=== PATIENT | male | born 1940 | race Caucasian/White ===

== ENCOUNTER 2017-10-23 04:50 | Emergency (ER) | payer MEDICARE, BC ==
--- OUTSIDE RECORDS SUMMARY | 2017-10-23 05:07 | XMS REPORT ---
:1940 External Reference #:[id number] Author Organization [facility] Address [address] [address] Phone [phone] Care Team Providers Name Role Phone Primitivo Zapien MD Primary Care Physician Unavailable Payers Type Date Identification Numbers Payment Provider Subscriber Medicare Primary Effective: Policy Number: Medicare Alexandr Cardenas 2004 [id number] PayID: [id number] [address] [place] [address] Medigap Part B Policy Number: [id number] [facility] Alexandr Cardenas PayID: [id number] [address] [place] [address] Problems Date Description Provider Status Onset: 07/04/2011 Pure hypercholesterolemia Singh Lo M.D. Active Onset: 09/25/2012 Coronary arteriosclerosis Singh Lo M.D. Active Onset: 09/25/2012 Arteriosclerosis of arterial Singh Lo M.D. Active coronary artery bypass graft Onset: 02/15/2014 Palpitations Singh Lo M.D. Active Onset: 02/15/2014 Malaise and fatigue Singh Lo M.D. Active Onset: 02/15/2014 Spinal stenosis of lumbar region Singh Lo M.D. Active Onset: 06/28/2014 Benign essential hypertension Singh Lo M.D. Active Onset: 06/28/2014 Atrial fibrillation Singh Lo M.D. Active Onset: 06/28/2014 Atherosclerosis of artery Singh Lo M.D. Active Onset: 01/25/2016 Essential hypertension Singh Lo M.D. Active Onset: 07/08/2016 Obstructive sleep apnea syndrome Taylor Monae DNP, Active RN, COPYWRITER- Onset: 07/08/2016 Insomnia Taylor Monae DNP, Active RN, COPYWRITER- Family History Date Family Member(s) Problem(s) Comments Father due to Stroke () Father due to Age 84 () Mother due to Complications Infected Gall Bladder () Age 74 Mother Diabetes, Insulin Dependent First Son Down's Syndrome Age 33 First Son Thyroid Disease First Son Obesity Second Son Gall Bladder Attack- Severe Second Son Living First Sister Rheumatic Fever First Sister Living Second Sister Hypertension Second Sister Living Third Sister Arthritis, Rheumatoid Third Sister Living Fourth Sister Hypercholesterolemia Fourth Sister Living Social History Type Date Description Comments Marital Status Lives With 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 active myalgias 04/25/2008 Niaspan active flushing 10/06/2013 Crestor fatigue on 2.5 mg daily active 08/19/2016 Chocolate Sneezing active 08/19/2016 Strawberries Urticaria active Medications Medication Date Status Form Strength Qnty SIG Indications Ordering Provider Co-Enzyme Q-10 07/29 Active Capsules 200mg 60cap 1 by mouth s every day Cem Lo M.D. Lovaza 04/10 Active Capsules 1gm take 1capsules twice a day Warfarin Sodium 06/28 Active Tablets 5mg 100ta take as bs [id number] F. 12/27 Teresita, (current Aditi regime 7.5/7.5/5mg and repeat) managed by Dr. Zapien Aspirin Ec 03/[address] 81mg 1 tab po I48.0 daily Cem Lo M.D. Dilt-XR 03/08 Active Caps ER 120mg 90cap 1 by mouth I48.0 24HR s every day Cem Lo M.D. Vitamin D 08/06 Active Capsules 2000Unit 1 po qd Cem Lo M.D. Nitrostat 04/22 Active Tablets Sub 0.4mg 25tab one sl q5min s up to 3 F. doses as Mauser, needed M.DTanesha Zolpidem Active Tablets 5mg 1 by mouth Unknown Tartrate /0000 tablet at bedtime as needed Cpap Active Device for use Unknown /0000 while sleeping Coq10 04/14 Hx Capsules 200mg 90cap 1 by mouth s every day Cem Lo, 07/25 M.D. Aspirin Ec 04/[address] 81mg 1 tablet Unknown Lo-Dose /2015 daily. - 07/20 [place] 3 Ethyl 01/24 Hx Capsules 1gm 100ca 2 po bid ps FTanesha Lo, 07/20.D. Ambien 06/28 Hx Tablets 5mg 1 po q hs prn Cem Lo, 01/23 M.D. Crestor 04/22 Hx Tablets 5mg 40tab 1/2 tab by s mouth F. - 3x/week Mauser, 11/14 (-w-) M.D. Crestor 09/25 Hx Tablets 5mg 30tab 1/2 po tid s stopped January - 2013 Mauser, 02/24 M.D. Crestor 03/15 Hx Tablets 5mg 1/2 po 2x week F. - Mausecyril, 09/25 M.D. Crestor 10/25 Hx Tablets 10mg 30tab 1/2 po biw s hs Cem Lo, 02/21 M.D. Crestor 04/21 Hx Tablets Unsure 30tab 1/2 po qd s Cem Lo, 04/21 M.D. Crestor 04/21 Hx Tablets 5mg 30tab 1/2 po MWF s F. - Leonardor, 10/25 M.D. Lipitor 12/28 Hx 5mg 1 po q week F. - Leonardor, 04/21 M.D. Lipitor 09/26 Hx F. Leonardor, 12/28 M.D. Lipitor 09/20 Hx Tablets 5mg. 90tab 1 2x/wk s F. - Leonardor, 09/26 M.D. Lipitor 06/15 Hx Tablets 5mg. 1 PO mondays and Teresita, 06/20 M.D. Lipitor 04/25 Hx Tablets 5mg. 30tab 1 po q Friday. Eliane Lo, 06/15 M.D. Zetia 12/10 Hx Tablets 10mg 90tab 1 PO qd F. Eliane Lo, 02/01 M.D. Lovaza 12/10 Hx Capsules 1gm 120ca [facility] Zocor 12/10 Hx Tablets 5mg 30tab 1 PO hs Cem Lo, 03/28 M.D. Zithromax Z-Chaz 09/02 Hx Tablets 250mg 1Pack as Per [facility] F. - Leonardor, 12/10 M.D. Lipitor 08/24 Hx Tablets 5mg. 30tab 1 po -- s F. - Mauser, 08/28 M.D. Lipitor 06/24 Hx Tablets 10mg 90tab 1Tab PO hs s F. - Gustavouser, 08/24 M.D. Omacor 03/26 Hx Capsules 1gm one bid F. Eliane Lo, 12/10 M.D. Reglan 08/11 Hx Tablets 10mg 90tab 1 PO s F. - Mabogdanr, 12/10 M.D. Protonix 08/11 Hx Tablets 40mg qd F. - Mauser, 12/10.D. Albuterol 08/11 Hx Aerosol 90mcg/Dos 2 Puffs qid Inhalation e prn F. - Gustavouser, 10/04 M.D. Cholestyramine 08/30 Hx Powder 4GM/9 GM 180un 1 po bid its F. - Mauser, 03/30 M.D. Nasonex 08/01 Hx Suspension 50mcg 2 sprays Intranasal each nostril F. [place] - prn Teresita, 11/01.D. Atenolol 07/22 Hx Tablets 25mg 30tab 1/ po qd s F. - Mausecyril, 07/26.D. Lopressor 07/15 Hx Tablets 25mg 1 po qd x 1 wk then D/c F. - bogdan, 07/22.D. Amiodarone 07/05 Hx Tablets 100mg take qd for 2wks then DC F. - on 07/19/05 Mabogdan, 07/22.D. Niaspan 07/03 Hx Tablets 1,000mg 1 po q hs F. Release - Gustavouser, 07/08.D. Lopressor 06/26 Hx Tablets 25mg 60tab 1 po bid s F. - Mabogdanr, 07/15.D. Amiodarone 06/19 Hx Tablets 200mg 1 po qd F. - Mauser, 07/05.D. Levaquin 06/08 Hx Tablets 500mg 10tab one qd x10 s days F. - Mauser, 06/26.D. Albuterol 06/08 Hx Aerosol 90mcg/Dos 2 puffs qid Inhalation e prn F. - Teresita, 11/01 M.D. Amiodarone 06/08 Hx Tablets 400mg 37tab bid times s one . - week,then qd , 06/19 times .D. month Lopressor 06/04 Hx Tablets 50mg 180ta 1 po bid bs Cem Lo, 06/26.D. Plavix 06/04 Hx Tablets 75mg 30tab 1 po qd s Cem Lo, 06/08.. Aspirin 06/04 Hx Gelcaps 325mg 1 po qd Tanesha Lo, 03/08 M.D. Ferrous 06/04 Hx Tablets 325mg 1 po bid Gluc Leonardo, 07/22. Colace 06/04 Hx Capsules 100mg 30cap 1 po bid s Tanesha Lo, 07/22. Protonix 06/04 Hx Tablets 40mg qd Tanesha Leonardo, 06/26.D. Amiodarone 06/04 Hx Tablets 200mg 30tab 400 mg bid s for 2 weeks Tanesha Teresita, 06/04 then 400 .D. mg qd Ceftin 06/04 Hx Tablets 500mg 1 po q12h x 12 days Eliane Lo, 06/08.D. Ambien 06/04 Hx Tablets 10mg 30tab one qhs prn s sleep Tanesha Lo, 11/01 M.D. Pleitez Tussin 06/04 Hx Suspension 30mg;4 prn cough With Codeine /2004 mg/5 ML Tanesha Lo, 07/22.D. Niaspan 04/26 Hx Tablets 500mg 30tab 1 po qpm s Tanesha Lo, 04/26 M.D. Toprol XL 04/26 Hx Tablets 100mg 90tab 1 po qd s Cem Lo, 06/04.D. Niaspan 04/26 Hx Capsules 250mg 90cap 1 po qd s F. - Mauser, 04/26 M.D. Niaspan 04/26 Hx Tablets 500mg 90tab 1 po qpm s F. Release - Mauser, 07/03 M.D. Toprol XL 04/22 Hx Tablets 50mg 30tab 1 po qd s F. - Mauser, 04/26 M.D. Plavix 04/22 Hx Tablets 75mg 30tab 1 po qd s F. - Mauser, 06/08 M.D. Zetia 03/23 Hx Tablets 10mg 90tab 1 po qd s F. - Gustavouser, 10/16 M.D. Aspirin Enteric 03/23 Hx Tablets 81mg qd F. - Teresita, 06/04 M.D. Vitamins 03/23 Hx Tablets 30tab 1 po qd Singh s F. - Mauser, 06/27 M.D. Vitamin E 03/23 Hx Capsules 400Units 100ca 1 po qd ps F. - Mauser, 03/24 M.D. Atenolol Hx Tablets 25mg 45tab 1/2 by mouth Singh /0000 s every other F. - day until , 03/03 6.17.14 and M.D. then discontinue Co Q 10 Hx Capsules 100mg 1 po 3x week Unknown /0000 - 02/15 Vesicare 00 Hx Tablets 5mg 90tab 1 po qd Unknown /0000 s - 03/09 Zolpidem Hx Tablets 5mg 40tab 1-2 prn Unknown Tartrate /0000 s - 04/26 Diltiazem HCL 00 Hx Tablets 120mg 30tab 1 by mouth Unknown /0000 s every day - 03/08 Xarelto Hx Tablets 20mg 90tab 1 by mouth Maddie /0000 s every day Valeria, - with evening M.D. 02/15 meal 04/22/14 hold x 2 days,04/26 cont to hold Zetia Hx Tablets 10mg 1 by mouth Unknown /0000 every day - 03/06 Co Q-10 Hx 1 po qod Unknown /0000 - 07/05 Crestor 00 Hx Tablets 5mg 40tab 1/2 tab by Singh /0000 s mouth F. - 3x/week (pt Teresita, 10/09 reports he Aditi /2017 takes every other day) hold as of 07.29.2017 Tylenol Extra Hx Tablets 500mg 1-2 po q hs Unknown Strength /0000 prn - 07/25 Medications Administered in Office Medication Date Status Form Strength Qnty SIG Indications Ordering Provider Inj, Administered Injection Octavio Wood Regadenoson, 016 Aditi Newman 0.1 MG Inj, Administered Injection Singh Priest Regadenoson, 016 Teresita, 0.1 MG M.DTanesha Technetium TC Administered Injection Octavio Wood 99M 016 Aditi Newman Tetrofosmin, Per Unit Dose Up To 40 Millicuries Technetium TC Administered Injection Singh Priest 99M 016 Socorro Lo M.D. Per Unit Dose Up To 40 Millicuries Technetium TC Administered Injection Jr Perez 99M 015 Socorro Jean M.D., FACC, Per Unit Dose FASNC Up To 40 Millicuries Immunizations CPT Code Status Date Vaccine Lot # 54726 Given 06/10/2016 Influenza Virus Vaccine, Quadrivalent, Split, Preservative Free Vital Signs Date Vital Result Comment 10/09/2017 Height 70 inches 5'10" Weight 182.00 lb with boots Heart Rate 62 /min BP Systolic Sitting 118 mmHg Lue reg cuff BP Diastolic Sitting 70 mmHg Lue reg cuff Respiratory Rate 16 /min O2 % BldC Oximetry 96 % On Ra BMI (Body Mass Index) 26.1 kg/m2 07/29/2017 Height 70 inches 5'10" Weight 178.50 lb with shoes Heart Rate 70 /min BP Systolic Sitting 120 mmHg LA reg cuff BP Diastolic Sitting 72 mmHg LA reg cuff BMI (Body Mass Index) 25.6 kg/m2 Ejection Fraction 55%-60% echo 03/08/17 07/25/2017 Height 70 inches 5'10" Weight 178.38 lb with shoes Heart Rate 62 /min BP Systolic Sitting 140 mmHg Rue reg cuff BP Diastolic Sitting 70 mmHg Rue reg cuff Respiratory Rate 16 /min O2 % BldC Oximetry 96 % On Ra BMI (Body Mass Index) 25.6 kg/m2 01/20/2017 Height 70 inches 5'10" Weight 178.00 lb Heart Rate 60 /min BP Systolic Sitting 118 mmHg BP Diastolic Sitting 70 mmHg Respiratory Rate 14 /min O2 % BldC Oximetry 95 % BMI (Body Mass Index) 25.5 kg/m2 08/27/2016 Height 70 inches 5'10" Weight 181.00 lb Heart Rate 52 /min BP Systolic 118 mmHg BP Diastolic 80 mmHg Respiratory Rate 16 /min O2 % BldC Oximetry 94 % BMI (Body Mass Index) 26.0 kg/m2 08/19/2016 Height 70 inches 5'10" Weight 182.00 lb w/ shoes Heart Rate 56 /min BP Systolic Sitting 128 mmHg Rue, reg cuff BP Diastolic Sitting 80 mmHg Rue, reg cuff BP Systolic Standing 124 mmHg Rue BP Diastolic Standing 84 mmHg Rue Respiratory Rate 16 /min BMI (Body Mass Index) 26.1 kg/m2 Ejection Fraction 55-60% as of 03/08/15 echo 07/08/2016 Height 70 inches 5'10" Weight 182.00 lb Heart Rate 67 /min BP Systolic Sitting 134 mmHg BP Diastolic Sitting 76 mmHg Respiratory Rate 16 /min O2 % BldC Oximetry 97 % BMI (Body Mass Index) 26.1 kg/m2 04/08/2016 Height 70 inches 5'10" Weight 172.00 lb Heart Rate 62 /min BP Systolic 128 mmHg BP Diastolic 64 mmHg Respiratory Rate 14 /min O2 % BldC Oximetry 94 % BMI (Body Mass Index) 24.7 kg/m2 03/07/2016 Height 70 inches 5'10" Weight 172.00 lb with shoes Heart Rate 62 /min BP Systolic 116 mmHg LA reg cuff BP Diastolic 72 mmHg LA reg cuff BMI (Body Mass Index) 24.7 kg/m2 Ejection Fraction 56% Nem 03/23/15 01/25/2016 Height 70 inches 5'10" Weight 176.00 lb w/shoes Heart Rate 78 /min BP Systolic 120 mmHg LA lrg cuff BP Diastolic 72 mmHg LA lrg cuff BP Systolic Sitting 118 mmHg LA lg cuff BP Diastolic Sitting 78 mmHg LA lg cuff BMI (Body Mass Index) 25.3 kg/m2 Ejection Fraction 56% NLM 03/23/15 04/18/2015 Height 70 inches 5'10" Weight 175.00 lb w/ shoes Heart Rate 60 /min BP Systolic Sitting 114 mmHg LA, reg BP Diastolic Sitting 82 mmHg LA, reg BMI (Body Mass Index) 25.1 kg/m2 Ejection Fraction 56% 03/23/15 Nem-rest 02/16/2015 Height 70 inches 5'10" Weight 172.50 lb Heart Rate 66 /min BP Systolic 118 mmHg LA reg BP Diastolic 74 mmHg LA reg BMI (Body Mass Index) 24.7 kg/m2 Ejection Fraction 50-55% 03/16/14 ECHO 11/14/2014 Height 70 inches 5'10" Weight 180.00 lb Heart Rate 62 /min BP Systolic Sitting 120 mmHg BP Diastolic Sitting 70 mmHg Respiratory Rate 16 /min BMI (Body Mass Index) 25.8 kg/m2 06/28/2014 Height 70 inches 5'10" Weight 177.75 lb Heart Rate 72 /min BP Systolic Sitting 118 mmHg left, reg BP Diastolic Sitting 84 mmHg left, reg BMI (Body Mass Index) 25.5 kg/m2 04/27/2014 Height 70 inches 5'10" Weight 177.00 lb Heart Rate 80 /min BP Systolic Sitting 134 mmHg BP Diastolic Sitting 84 mmHg BMI (Body Mass Index) 25.4 kg/m2 04/12/2014 Height 70 inches 5'10" Weight 179.00 lb w/shoes Heart Rate 60 /min BP Systolic Sitting 138 mmHg BP Diastolic Sitting 78 mmHg Respiratory Rate 15 /min BMI (Body Mass Index) 25.7 kg/m2 03/08/2014 Height 70 inches 5'10" Weight 177.25 lb Heart Rate 64 /min BP Systolic Sitting 128 mmHg reg, left BP Diastolic Sitting 74 mmHg reg, left BMI (Body Mass Index) 25.4 kg/m2 02/15/2014 Height 70 inches 5'10" Weight 178.00 lb Heart Rate 60 /min BP Systolic Sitting 116 mmHg BP Diastolic Sitting 64 mmHg Respiratory Rate 14 /min BMI (Body Mass Index) 25.5 kg/m2 08/06/2013 Height 70 inches 5'10" Weight 180.00 lb Heart Rate 59 /min BP Systolic Sitting 124 mmHg BP Diastolic Sitting 80 mmHg BMI (Body Mass Index) 25.8 kg/m2 09/25/2012 Height 70 inches 5'10" Weight 186.00 lb Heart Rate 66 /min BP Systolic 136 mmHg BP Diastolic 78 mmHg BMI (Body Mass Index) 26.7 kg/m2 03/25/2012 Height 70 inches 5'10" Weight 178.00 lb Heart Rate 60 /min BP Systolic Sitting 128 mmHg BP Diastolic Sitting 78 mmHg Respiratory Rate 16 /min BMI (Body Mass Index) 25.5 kg/m2 07/04/2011 Height 70 inches 5'10" Weight 175.00 lb Heart Rate 56 /min BP Systolic 110 mmHg BP Diastolic 80 mmHg Respiratory Rate 16 /min BMI (Body Mass Index) 25.1 kg/m2 10/04/2010 Height 70 inches 5'10" Weight 181.00 lb Heart Rate 67 /min BP Systolic Sitting 126 mmHg BP Diastolic Sitting 80 mmHg BMI (Body Mass Index) 26.0 kg/m2 03/27/2010 Height 70 inches 5'10" Heart Rate 60 /min reg BP Systolic 110 mmHg BP Diastolic 70 mmHg 03/16/2010 Height 70 inches 5'10" Weight 181.00 lb Heart Rate 74 /min BP Systolic Sitting 130 mmHg BP Diastolic Sitting 72 mmHg BMI (Body Mass Index) 26.0 kg/m2 02/01/2010 Height 70 inches 5'10" Weight 182.00 lb Heart Rate 75 /min BP Systolic Sitting 140 mmHg L BP Diastolic Sitting 84 mmHg L BMI (Body Mass Index) 26.1 kg/m2 10/25/2009 Weight 181.00 lb Heart Rate 60 /min BP Systolic Sitting 110 mmHg BP Diastolic Sitting 70 mmHg Respiratory Rate 16 /min 04/21/2009 Height 69 inches 5'9" Weight 180.00 lb BP Systolic Sitting 120 mmHg BP Diastolic Sitting 70 mmHg BMI (Body Mass Index) 26.6 kg/m2 12/08/2008 Height 69 inches 5'9" Weight 183.00 lb Heart Rate 66 /min BP Systolic Sitting 130 mmHg L BP Diastolic Sitting 80 mmHg L BMI (Body Mass Index) 27.0 kg/m2 04/25/2008 Height 69 inches 5'9" Weight 181.00 lb Heart Rate 68 /min BP Systolic Sitting 120 mmHg BP Diastolic Sitting 70 mmHg Respiratory Rate 16 /min BMI (Body Mass Index) 26.7 kg/m2 12/11/2007 Height 69 inches 5'9" Weight 183.00 lb Heart Rate 68 /min BP Systolic Sitting 122 mmHg BP Diastolic Sitting 70 mmHg Respiratory Rate 16 /min BMI (Body Mass Index) 27.0 kg/m2 08/28/2007 Height 69 inches 5'9" Weight 182.00 lb Heart Rate 53 /min BP Systolic Sitting 140 mmHg R BP Diastolic Sitting 74 mmHg R BP Systolic Standing 140 mmHg R BP Diastolic Standing 74 mmHg R BMI (Body Mass Index) 26.9 kg/m2 03/26/2007 Height 69 inches 5'9" Weight 178.00 lb Heart Rate 58 /min BP Systolic Sitting 120 mmHg R BP Diastolic Sitting 60 mmHg R BP Systolic Standing 120 mmHg R BP Diastolic Standing 70 mmHg R BMI (Body Mass Index) 26.3 kg/m2 08/11/2006 Height 69 inches 5'9" Weight 171.00 lb Heart Rate 58 /min BP Systolic Sitting 102 mmHg BP Diastolic Sitting 66 mmHg BP Systolic Standing 102 mmHg BP Diastolic Standing 70 mmHg Respiratory Rate 16 /min BMI (Body Mass Index) 25.2 kg/m2 11/01/2005 Height 69 inches 5'9" Weight 179.00 lb Heart Rate 60 /min BP Systolic Sitting 118 mmHg BP Diastolic Sitting 74 mmHg BP Systolic Standing 104 mmHg BP Diastolic Standing 70 mmHg BMI (Body Mass Index) 26.4 kg/m2 08/01/2005 Height 69 inches 5'9" Weight 170.00 lb Heart Rate 68 /min BP Systolic Sitting 120 mmHg BP Diastolic Sitting 80 mmHg BP Systolic Standing 110 mmHg BP Diastolic Standing 84 mmHg BMI (Body Mass Index) 25.1 kg/m2 07/22/2005 Height 69 inches 5'9" Weight 170.00 lb Heart Rate 53 /min BP Systolic Sitting 146 mmHg BP Diastolic Sitting 80 mmHg BP Systolic Standing 140 mmHg BP Diastolic Standing 80 mmHg BMI (Body Mass Index) 25.1 kg/m2 06/26/2005 Height 69 inches 5'9" Weight 171.00 lb Heart Rate 59 /min BP Systolic Sitting 130 mmHg L BP Diastolic Sitting 80 mmHg L BP Systolic Standing 120 mmHg L BP Diastolic Standing 80 mmHg L O2 % BldC Oximetry 99 % BMI (Body Mass Index) 25.2 kg/m2 06/04/2005 Height 69 inches 5'9" Weight 174.00 lb Heart Rate 69 /min BP Systolic Sitting 110 mmHg BP Diastolic Sitting 60 mmHg Body Temperature 98.4 F O2 % BldC Oximetry 98 % BMI (Body Mass Index) 25.7 kg/m2 04/26/2005 Height 69 inches 5'9" Weight 184.00 lb Heart Rate 74 /min BP Systolic Sitting 124 mmHg BP Diastolic Sitting 70 mmHg BP Systolic Standing 130 mmHg BP Diastolic Standing 74 mmHg BMI (Body Mass Index) 27.2 kg/m2 03/24/2003 Height 69 inches Weight 178.00 lb BP Systolic Sitting 110 mmHg BP Diastolic Sitting 70 mmHg BP Systolic Standing 92 mmHg BP Diastolic Standing 70 mmHg BMI (Body Mass Index) 26.3 kg/m2 Results Test Date Test Result H/L Range Note Laboratory test finding 04/14/2017 C Reactive Protein 2.34 mg/L < 5.00 1 Erythrocyte Sed Rate 13 mm/Hr 0-40 Hemoglobin A1c (Glyco HGB) 6.3 % High Less than 6.0 2 TSH (Thyroid Stim Horm) 1.53 mcIU/mL 0.34-5.60 Folic Acid (Folate) > 20.00 ng/mL >3.99 Vitamin B12 311 pg/mL 180-914 3 Vitamin D Total 25(Oh) 36.2 ng/mL 30-50 Vitamin D, 1,25 Dihydroxy 42 pg/mL 18-64 4 Creatinine Clearance 05/07/2014 Urine Random Creatinine 123.88 mg/dL 5 Creatinine 0.95 mg/dL 0.51-0.95 5 Creatinine Clearance 122 mL/min 97-137 5 Urine Collection Time 24 5 Urine Total Volume 1350 mL 5 Laboratory test finding 05/06/2014 Thrombin Time 18 sec 15 - 23 6 Lupus Anticoagulant AB 05/06/2014 Prothrombin Time(Lac) 10.8 sec 7 Lac Inr 1.0 Lac Aptt 33 sec 26 - 36 Lac DRVVT Screen Ratio 1.0 ratio 0.0 - 1.1 Lupus Anticoagulant Interpreta See Comment 8 Laboratory test finding 05/06/2014 Inr 0.96 0.85-1.06 Activated Partial Thrombo Time 34.3 seconds 24.0-36.1 Order 03/08/2014 EKG <pending> Event Monitor <pending> Order 02/24/2014 Stress Test, Exercise <pending> Echocardiogram CBC With Electronic 04/08/2008 White Blood Count 7.1 CUMM 4.8-10.8 Diff Stat Red Cell Count 4.16 CUMM Low 4.6-6.2 Hemoglobin 13.6 g/dL Low 14.0-18.0 Hematocrit 38 % Low 42-52 Mean Corpuscular Volume 92 um3 80-94 Mean Corpuscular Hemoglob 33 pg High 27-31 Mean Corpuscular HGB Cone 36 g/dL 32-36 Redcell Distribution WDTH 13 % 10.5-15 Platelet Count 197 CUMM 150-450 Mean Platelet Volume 7.5 um3 7.4-10.4 Gran % 66.1 % 38-83 Lymph % 26.1 % 20-45 Mononuclear % 6.1 % 1-9 Eosinophil % 1.3 % 0-6 Basophil % 0.4 % 0-2 Abs Lymphs 1.9 1.0-4.8 Abs Mononuclear 0.4 0-0.8 Absolute Neutrophil Count 4.7 1.5-7.7 Abs Eosinophils 0.1 0-0.6 Abs Basophils 0 0-0.2 Basic Metabolic Panel Stat 04/08/2008 Sodium 141 mmol/L 135-145 Potassium 3.9 mmol/L 3.5-5.0 Chloride 108 mmol/L 101-111 Co2 (Carbon Dioxide) 30.0 mmol/L 22-32 Anion Gap 3.0 mmol/L 2-11 9 Glucose 131 mg/dL High 70-105 BUN 11 mg/dL 6-24 Creatinine 1.1 mg/dL 0.5-1.4 One Over Creatinine 0.90 BUN/Creatinine Ratio 10.0 8-20 Calcium 8.6 mg/dL 8.1-9.9 10 Laboratory test finding 04/08/2008 Troponin-I (TnI) 0.01 NG/ML 0-0.06 11 Basic Metabolic Panel 11/04/2007 One Over Creatinine 1.00 Anion Gap 5.0 mmol/L 2-11 12 BUN 11 mg/dL 6-24 Calcium 9.5 mg/dL 8.7-10.2 Chloride 104 mmol/L 101-111 Co2 (Carbon Dioxide) 31.0 mmol/L 22-32 Glucose 112 mg/dL High 70-105 Potassium 4.7 mmol/L 3.5-5.0 Sodium 140 mmol/L 135-145 BUN/Creatinine Ratio 11.0 8-20 Creatinine 1.0 mg/dL 0.5-1.4 1 Acute inflammation: >10.00 2 Therapeutic target for the treatment of diabetes Mellitus patients is <7% HBA1C, and in selective patients <6.0%.Please refer to [place] [employer] Diabetic care guidelines for further information. 3 Normal Range 180 to 914 Indeterminate Range 145 to 180 Deficient Range <145 4 ADDITIONAL INFORMATION This test was developed and its performance characteristics determined by [facility] in a manner consistent with CLIA requirements. This test has not been cleared or approved by the U.S. Food and Drug Administration. Test Performed by: [place] [address] 5 Collected from 05/06/14 AT 0630~05/07/14 AT 0630 6 Test Performed by: [address] [address] Medical Physiologist: Norm Contreras III, M.D. 7 -- REFERENCE VALUE -- 10.3 - 12.8 8 No evidence of a lupus-like anticoagulant based on results of Prothrombin Time (PT), Activated Partial Thromboplastin Time (APTT), and Dilute [place] Viper Venom Time (DRVVT). Interpretation not reviewed by physician. Test Performed by: [place] [address] Medical Physiologist: Norm Contreras III, M.D. 9 Anion gap measurement may be of limited value in the presence of any alkalosis, especially in a combined acid base disorder. . 10 Please note change in reference range effective 08 . 11 New Reference Range and Interpretation effective 06/18/02 TnI (ng/ml) INTERPRETATION <0.06 ng/ml NOT SUPPORTIVE OF DIAGNOSIS OF HI 0.06 - 0.50 ng/ml INDETERMINATE: SUGGEST SERIAL STUDIES IF CLINICALLY INDICATED. > 0.5 ng/ml CONSISTENT WITH DIAGNOSIS OF HI . 12 Anion gap measurement may be of limited value in the presence of any alkalosis, especially in a combined acid base disorder. . Procedures Date CPT Code Description Status 08/14/2017 03607 Polysomnography Sleep Staging 4+ Parameters W/Cpap Completed 07/29/2017 58863 EKG Tracing & Interpretation Completed 04/17/2017 63191 Holter Monitor Review (24 hr)dr mark jackson; maru Completed only 04/16/2017 18960 ECG Monitor/Recording W/Visual Superimposition Scanning Completed 04/14/2017 01505 Stress ECHO Interpretation/Report Hospital Completed 04/14/2017 75434 Treadmill Interp/Report Only Completed 04/14/2017 97576 Stress Test Supervsn W/Out I/R Completed 08/19/2016 31138 EKG Tracing & Interpretation Completed 03/25/2016 80926 Myocardial Perfusion Imaging Tomographic (Spect) Completed Multiple Studies 03/25/2016 92210 Myocardial Perfusion Imaging Tomographic (Spect) Completed Multiple Studies 03/25/2016 44209 Stress Test Completed 03/04/2016 62780 Holter Monitor Review (24 hr)dr christensenamp; maru Completed only 02/28/2016 35902 ECG Monitor/Recording W/Visual Superimposition Scanning Completed 01/25/2016 67761 EKG Tracing & Interpretation Completed 03/23/2015 34809 Treadmill Interp/Report Only Completed 03/23/2015 16192 Stress Test Supervsn W/Out I/R Completed 03/23/2015 29184 Stress Test Completed 03/23/2015 27483 Myocardial Perfusion Imaging Tomographic (Spect) Completed Multiple Studies 03/23/2015 35348 Myocardial Perfusion Imaging Tomographic (Spect) Completed Multiple Studies 03/08/2015 52347 ECHO Transthoracic, Real-Time 2D With Doppler And Color Completed Flow 02/16/2015 55511 EKG Tracing & Interpretation Completed 06/28/2014 16654 EKG Tracing & Interpretation Completed 03/16/2014 37274 ECHO Transthoracic, Real-Time 2D With Doppler And Color Completed Flow 03/11/2014 40901 Event Monitor/Phys Review/Interp. Completed 03/08/2014 88648 Cardiac Event Monitor Completed 03/08/2014 65157 EKG Tracing & Interpretation Completed 02/24/2014 75609 ECHO Stress Test Incl Perf Contiuous ekg Monitoring Completed W/Phys Superv 02/24/2014 06824 ECHO Stress Test Incl Perf Contiuous ekg Monitoring Completed W/Phys Superv 02/15/2014 28901 EKG Tracing & Interpretation Completed 08/06/2013 23475 EKG Tracing & Interpretation Completed 09/25/2012 96735 EKG Tracing & Interpretation Completed 03/25/2012 71027 EKG Tracing & Interpretation Completed 07/04/2011 06771 EKG Tracing & Interpretation Completed 10/04/2010 87301 EKG Tracing & Interpretation Completed 07/03/2010 61266 Treadmill Interp/Report Only Completed 07/03/2010 91768 Stress Test Supervsn W/Out I/R Completed 03/16/2010 68639 EKG Tracing & Interpretation Completed 02/28/2010 37439 ECHO Stress Test Incl Perf Contiuous ekg Monitoring Completed W/Phys Superv 02/01/2010 16957 EKG Tracing & Interpretation Completed 10/25/2009 67426 EKG Tracing & Interpretation Completed 04/21/2009 02645 EKG Tracing & Interpretation Completed 03/23/2009 89841 ECHO Transthoracic, Real-Time 2D With Doppler And Color Completed Flow 12/08/2008 56092 EKG Tracing & Interpretation Completed 06/20/2008 41217 ECHO/Stress Completed 06/20/2008 11528 ECHO/Stress Completed 06/20/2008 51605 ECHO/Stress Completed 06/20/2008 10610 Stress Test Completed 06/20/2008 23644 Stress Test Completed 04/25/2008 59498 EKG Tracing & Interpretation Completed 08/28/2007 39812 EKG Tracing & Interpretation Completed 08/28/2007 59419 EKG Tracing & Interpretation Completed 03/26/2007 33785 EKG Tracing & Interpretation Completed 09/22/2006 30571 ECHO/Stress Completed 09/22/2006 17851 Stress Test Completed 09/22/2006 67372 Stress Test Completed 08/11/2006 46119 EKG Tracing & Interpretation Completed 07/12/2006 91594 Heart Card -Tech. Completed 07/12/2006 19268 Heart Card -Tech. Completed 07/12/2006 20624 Heart Card- Prof. Completed 07/12/2006 70906 Heart Card- Prof. Completed 07/11/2006 14368 EKG, Interpretation Only Completed 07/11/2006 80646 EKG, Interpretation Only Completed 07/08/2006 54840 EKG, Interpretation Only Completed 11/01/2005 33630 EKG Tracing & Interpretation Completed 07/22/2005 42322 EKG Tracing & Interpretation Completed 06/26/2005 91425 EKG Tracing & Interpretation Completed 06/11/2005 36392 Echocardiogram Completed 06/11/2005 40374 Pulse Doppler & Continuous Wave Completed 06/11/2005 58296 Color Doppler Completed 06/08/2005 07374 EKG, Interpretation Only Completed 06/04/2005 95916 EKG Tracing & Interpretation Completed 04/26/2005 57150 EKG Tracing & Interpretation Completed 04/22/2005 73691 ECHO/Stress Completed 04/22/2005 21270 Stress Test Completed 06/16/2003 48504 EKG, Interpretation Only Completed 05/11/2003 34609 ECHO/Stress Completed 05/11/2003 35668 Stress Test Completed 03/24/2003 42052 EKG Tracing & Interpretation Completed Encounters Type Date Location Provider CPT E/M Dx Office Visit 07/29/2017 9:20[place] [facility] [place] [address] G47.33 Aditi R53.83 I48.0 E78.00 I25.10 Office Visit 07/25/2017 9:45a [facility] Taylor Monae 18912 G47.33 Services Of Morenita JONES RN, FNP-BC R35.1 Office Visit 04/14/2017 8:50a [facility] [place] [address] R53.83 MDonnell Office Visit 01/20/2017 10:15a [facility] Taylor Monae 55785 G47.33 Services Of Morenita JONES RN, FNP-BC G47.00 Office Visit 08/27/2016 10:00a [facility] Taylor Monae 97789 G47.33 Services Of Morenita JONES RN, FNP-BC G47.00 R35.1 Office Visit 08/19/2016 2:20p [facility] [place] [address] G47.33 Morenita Pennington R53.83 E78.00 I48.0 I25.10 Office Visit 07/08/2016 9:00a [facility] Taylor Monae 93714 G47.33 Services Of Morenita JONES RN, FNP-BC R53.83 G47.00 Office Visit 04/08/2016 11:00a [facility] Taylor Monae, 17731 G47.33 Services Of Morenita JONES RN, [facility]- R53.83 Office Visit 03/07/2016 11:00a [facility] [place] [address] I48.0 E78.0 G47.33 R53.83 Office Visit 01/25/2016 3:00p [facility] Singh Lo M.D. 86940 I48.0 I10 E78.0 I25.10 R53.83 Office Visit 04/18/2015 10:30a [facility] WALTER Go 20432ARD 427.31 414.01 401.1 272.0 414.02 444.9 780.79 Office Visit 02/16/2015 11:00a [facility] [place] [address] 414.01 M.D. 401.1 427.31 786.50 Office Visit 11/14/2014 11:00a [facility] Ev[facility] Cross M.D. 23579 724.02 Services Of Morenita 796.1 Office Visit 06/28/2014 11:40a [facility] [place] [address] 414.01 M.D. 401.1 427.31 440.8 Office Visit 04/27/2014 2:30p [facility] [place] Go 79706 427.31 401.1 272.4 782.7 Office Visit 04/12/2014 2:30p [facility] [place] Go 27089 427.31 401.1 272.4 250.00 Office Visit 03/08/2014 2:30p [facility] [place] 27350 414.01 427.31 401.1 794.31 272.4 Office Visit 02/15/2014 1:20p [facility] [place] [address] 414.01 M.D. 272.0 785.1 414.04 780.79 724.03 443.9 Office Visit 08/06/2013 3:00p [facility] Singh Lo M.D. 25895 272.0 414.01 785.1 Office Visit 09/25/2012 2:20p [facility] [place], 71756 414.01 M.DTanesha 272.0 414.04 Office Visit 03/25/2012 10:15a [facility] Singh Lo M.D. 81019 272.0 414.01 414.04 Office Visit 07/04/2011 9:00a [facility] [place], 89303 414.01 M.DTanesha 272.0 786.50 Office Visit 10/04/2010 8:40a [facility] [place], [address] 414.01 M.DTanesha 272.0 414.04 Office Visit 07/03/2010 10:00a [facility] [place] [address] 414.04 M.DTanesha Office Visit 03/27/2010 2:20p [facility] [place], 10389 414.01 M.DTanesha 272.0 786.50 414.04 V45.81 Office Visit 03/16/2010 4:00p [facility] Farideh vEansisaías, 50190 414.01 M.DTanesha 272.0 786.50 401.1 414.04 V45.81 Office Visit 02/01/2010 11:20a [facility] Singh Lo M.D. 05365 272.0 414.01 401.1 414.04 Office Visit 10/25/2009 3:00p [facility] Singh Lo M.D. 41440 272.0 414.01 Office Visit 04/21/2009 1:40p [facility] Singh Lo M.D. 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 401.1 272.0 414.04 Office Visit 12/11/2007 1:40p [facility] Singh Priest Mabogdanr, 41925 414.01 M.D. 401.1 272.0 Office Visit 08/28/2007 11:20a [facility] Singh Priest Mabogdanr, 12088 414.01 M.D. 401.1 272.0 Office Visit 03/26/2007 11:20a [facility] Singh Priest Mabogdanr, 72937 414.01 M.D. 401.1 272.0 Office Visit 08/11/2006 3:00p [facility] Singh JudgeTanesha Gustavobogdanr, 68704 786.50 M.D. 414.01 Office Visit 11/01/2005 2:20p [facility] Singh Priest Mabogdanr, 14593 414.01 M.D. 427.31 Office Visit 08/01/2005 3:00p [facility] Singh JudgeTanesha Gustavobogdanr, 06746 427.31 M.D. 414.01 Office Visit 07/22/2005 1:20p [facility] Singh JudgeTanesha Gustavobogdanr, 72691 414.01 M.D. 427.31 785.1 Office Visit 06/26/2005 2:20p [facility] Singh JudgeTanesha Gustavobogdanr, 73988 414.01 M.D. 427.31 272.0 Office Visit 06/04/2005 3:20p [facility] Singh JudgeTanesha Gustavobogdanr, 76436 414.01 M.D. 427.31 786.2 Office Visit 04/26/2005 1:20p [facility] Singh JudgeTanesha Gustavobogdanr, 38986 414.01 M.D. 413.9 780.57 Office Visit 04/22/2005 11:45a [facility] Singh Judge. Gustavobogdanr, 37663 786.50 M.D. 401.0 786.09 Office Visit 03/24/2003 9:20a [facility] Singh FTanesha Gustavobogdanr, 19871 786.50 M.D. 414.01 786.05 785.1 780.57 272.4 Plan of Care 10/09/2017 - Taylor Monae DNP, RN, COPYWRITER-BCG47.33 Obstructive sleep apnea ( adult) (pediatric)Follow up:1 yearRecommendations:Continue PAP device, Benefitting and compliant with treatment. Continue CPAP at 6 cm setting. Trial the Mirage FX nasal interface. If you have any sleepiness while driving you MUST avoid operating a vehicle or machinery. If you have difficulty with your equipment, or need to replace your mask or hoses, please contact your homecare agency. A weight change of 20 pounds or more may have an effect on your equipment; if you are experiencing problems please call for an appointment. If you have any further questions, please call the [facility] at .
--- OUTSIDE RECORDS SUMMARY | 2017-10-23 05:08 | XMS REPORT ---
:1940 External Reference #:[id number] Author Organization [facility] Address [address] [place] [address] Phone [phone] Care Team Providers Name Role Phone Primitivo Zapien M.D. Primary Care Physician Unavailable Payers Type Date Identification Numbers Payment Provider Subscriber Medicare Primary Effective: Policy Number: Medicare - NGS Alexandr Cardenas 2004 [id number] PayID: [id number] [address] [place] [address] Commercial Policy Number: [id number] [place] Plan Alexandr Cardenas PayID: [id number] [address] [place] [address] Problems Date Description Provider Status Onset: Allergy Active Onset: Carcinoma of prostate Active Onset: Removal of gallbladder Active Onset: Essential hypertension Active Onset: Atrial fibrillation Active Onset: Cervical nerve root compression Active Onset: Pure hypercholesterolemia Active Onset: 03/30/2015 Ocular hypertension Austen Dawn M.D. Active Onset: 03/30/2015 Nuclear senile cataract Austen Dawn M.D. Active Onset: 09/29/2015 Combined form of senile cataract Austen Dawn M.D. Active Onset: 04/01/2016 Type 2 diabetes mellitus Austen Dawn M.D. 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 Arleo, M.D. 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 Warfarin Sodium Active Tablets 5mg Unknown 000 Zolpidem Active Tablets 5mg Shallish, Tartrate 000 Primitivo M.D. Vitamin D Active Tablets 1000Unit 1 by Unknown (Cholecalciferol 000 mouth ) twice a day Lovaza Active Capsules 1gm 1 tab Unknown 000 by mouth twice a day Nitrostat Active Tablets Sub 0.4mg Unknown [address] Active Tablets [address] 81mg twice a Unknown 000 day by mouth Crestor Active Tablets 5mg 1/5 tab Unknown 000 qod Diltiazem HCL ER Active Caps ER 120mg Unknown Coated Beads 000 24HR Flovent HFA Active Aerosol 44mcg/Act Shallish, 000 Primitivo M.D. [id number] Hx Capsules 1gm Austen Wen Ethyl Esters 015 - Arleo, M.D. 015 Aspirin 0 Hx Tablets 325mg Unknown 000 - 015 Multivitamins Hx Capsules Unknown 000 - 015 Vital Signs Date Vital Result Comment 11/12/2016 BP Systolic 152 mmHg BP Diastolic 78 mmHg Heart Rate 66 /min Respiratory Rate 12 /min 10/22/2016 BP Systolic 145 mmHg BP Diastolic 77 mmHg Heart Rate 66 /min Respiratory Rate 12 /min 10/15/2016 BP Systolic 130 mmHg BP Diastolic 82 mmHg Heart Rate 60 /min Respiratory Rate 14 /min Results Description No Information Procedures Date CPT Code Description Status 04/03/2017 45332 Est Patient Comprehensive Exam Completed 11/12/2016 53347 Iridotomy/Iredectomy By Laser Surgery Completed 10/15/2016 05005 Iridotomy/Iredectomy By Laser Surgery Completed 10/03/2016 45808 Est Patient Intermediate Exam Completed 04/01/2016 42785 Scanning Computerized Ophthalmic Diagnostic Imag Completed Posterior Seg On 04/01/2016 16739 Visual Field Exam Extended Completed 04/01/2016 15000 Est Patient Comprehensive Exam Completed 09/29/2015 97192 Est Patient Intermediate Exam Completed 03/30/2015 37790 Fundus Photography With Interpretation And Report Completed 03/30/2015 38205 Visual Field Exam Extended Completed 03/30/2015 18016 Est Patient Comprehensive Exam Completed 09/30/2014 82547 Gonioscopy Completed 09/30/2014 89644 Est Patient Intermediate Exam Completed 04/28/2014 98720 Visual Field Exam Extended Completed 04/28/2014 90823 Est Patient Intermediate Exam Completed 03/28/2014 00506 Pachymetry Completed 03/28/2014 76804 Est Patient Comprehensive Exam Completed 03/28/2014 77771 Scanning Computerized Ophthalmic Diagnostic Imag Completed Posterior Seg On 03/26/2013 15442 Determination Of Refractive State Completed 03/26/2013 17543 Est Patient Comprehensive Exam Completed 03/27/2012 72921 Est Patient Comprehensive Exam Completed 03/26/2011 07210 Fundus Photography With Interpretation And Report Completed 03/26/2011 49338 Est Patient Comprehensive Exam Completed 12/29/2009 22328 Est Patient Comprehensive Exam Completed 12/29/2009 64334 Scanning Laser W/Interp And Report Completed 12/21/2008 57734 Est Patient Comprehensive Exam Completed 12/18/2007 55705 Determination Of Refractive State Completed 12/18/2007 40019 Est Patient Comprehensive Exam Completed 12/18/2006 24246 Determination Of Refractive State Completed 12/18/2006 83111 Est Patient Comprehensive Exam Completed 12/12/2005 29632 Est Patient Comprehensive Exam Completed 12/06/2004 68754 Determination Of Refractive State Completed 12/06/2004 53432 Est Patient Comprehensive Exam Completed Encounters Type Date Location Provider CPT E/M Dx Office Visit 12/30/2016 Autsen Dawn MD, Austen Dawn, 28731 H40.033 10:15a Aditi H40.052 H25.813 Office Visit 05/25/2008 2:15p Austen Dawn MD, Leonard Salazar M.D. 97062 373.00 Plan of Care 10/06/2017 - Austen Dawn M.D.H25.813 Combined forms of age-related cataract , bilateralComments:Smoking can increase the risk of developing or worsening any eye related disease, as well as affect your overall health. If you are a smoker, we strongly recommend that you quit.If you are not a smoker, we strongly recommend that you do not start. You have been diagnosed with cataracts. If you are happy with your vision as it is now, then we will see you at your next scheduled appointment. If you feel like your vision is getting worse before your scheduled appointment, please call Sia Mccollmu [phone].Follow up:6 Month Follow Up You can expect to have your eyes dilated at your next visit. If Dr. Dawn orders any additional testing, it may require extra time. We recommend that you bring sunglasses, as dilation drops often make you light sensitive until they wear off. We always recommend you bring someone to drive you home if you are uncomfortable driving with your eyes dilated. If you have any questions before your next visit, feel free to call our office at .H40.033 Anatomical narrow angle, bilateral
[2017-10-23] MEDS ORDERED: NS 0.9% 1000 ML* 1,000 ML IV ONE (05:11)
[2017-10-23] MEDS ORDERED: Diltiazem DRIP* 100 MG/100 ML ADDV.BAG IVPB ONE (05:12)
[2017-10-23] MEDS ORDERED: Diltiazem IV* 5 MG/ML 5 ML VIAL (for loading dose/IV Push) (25 MG) IV SLOW PU ONE (05:13)
[2017-10-23] MEDS ORDERED: Digoxin IV* 0.5 MG/2 ML AMP (0.25 MG/ML) IV SLOW PU ONE (05:13)
[2017-10-23 05:25] LABS: ABS Basophils 0.1 10^3/ul (0-0.2); ABS Eosinophils 0.2 10^3/ul (0-0.6); ABS Lymphocytes 2.6 10^3/ul (1.0-4.8); ABS Monocytes 0.6 10^3/ul (0-0.8); ABS Nucleated RBC 0 10^3/ul; Eosinophil % 2.1 % (0-6); Hematocrit 44 % (42-52); Hemoglobin 15.1 g/dl (14.0-18.0); Lymphocyte % 35.2 % (25-47); Mean Corpuscular HGB Conc 34 g/dl (31-36); Mean Corpuscular Hemoglobin 33 pg (27-31); Mean Corpuscular Volume 94 fL (80-94); Mean Platelet Volume 8 um3 (7.4-10.4); Nucleated Red Blood Cells % 0.1; Platelet Count 234 10^3/ul (150-450); Red Blood Count 4.66 10^6/ul (4.0-5.4); Red Cell Distribution Width 14 % (10.5-15); White Blood Count 7.4 10^3/ul (3.5-10.8)
[2017-10-23 05:38] LABS: INR 1.92 (0.77-1.02)
[2017-10-23 05:45] LABS: EGFR Non-African American 73.3 (>60)
[2017-10-23] MEDS ORDERED: Diltiazem IV VIAL* 125 MG in NS 0.9% 100 ML* 100 ML IV ONE (06:00)
[2017-10-23] MEDS ORDERED: Enoxaparin(*) 80 MG/0.8 ML SYR SUBCUT SCH (07:00)
--- NOTE | 2017-10-23 07:09 | ED ---
Carrol Esteban Gabriel, scribed for Susie Tolentino MD on 10/23/17 at 0546 . Palpitations / Dysrhythmia - HPI Summary HPI Summary: This patient is a 77 year old M presenting to [facility] accompanied by his with with a chief complaint of chest palpitation since earlier this morning. The patient rates the pain 7/10 in severity. Patient reports increased urination. Patient denies CP pain. Pt had cardiac bypass and has had 2 episodes similar to this one. The last one was 20 years ago. Last two episodes he was shocked to fix it. Pt is on warfarin for Afib. - History of Current Complaint Chief Complaint: EDDysrhythmPalp Time Seen by Provider: 10/23/17 05:01 Hx Obtained From: Patient Onset/Duration: Lasting Hours, Still Present Timing: Constant Severity Initially: Mild Severity Currently: Mild Character: Irregular Associated Signs & Symptoms: Negative - CP - Allergy/Home Medications Allergies/Adverse Reactions: Allergies Allergy/AdvReac Type Severity Reaction Status Date / Time niacin Allergy Intermediate Flushing Verified 10/23/17 06:51 [From Niaspan Extended-Release] acetaminophen [From Lortab] Allergy Unknown Verified 10/23/17 06:46 Reaction Details hydrocodone [From Lortab] Allergy Unknown Verified 10/23/17 06:46 Reaction Details atorvastatin [From Lipitor] AdvReac Muscle Ache Verified 10/23/17 06:46 pravastatin AdvReac Muscle Ache Verified 10/23/17 06:47 CHOCOLATE Allergy Unknown Uncoded 10/23/17 06:51 Reaction Details strawberries Allergy Hives Uncoded 06/24/16 11:59 PMH/Surg Hx/FS Hx/Imm Hx Endocrine/Hematology History: Denies: Hx Diabetes Cardiovascular History: Reports: Hx Angina, Hx Atrial Fibrillation, Hx Coronary Artery Disease, Hx Hypercholesterolemia, Hx Pacemaker/ICD - afib, Other Cardiovascular Problems/Disorders - heart bypass 1994 Denies: Hx Congestive Heart Failure, Hx Hypertension, Hx Myocardial Infarction, Hx Valvular Heart Disease Respiratory History: Reports: Hx Sleep Apnea Denies: Hx Asthma, Hx Chronic Obstructive Pulmonary Disease (COPD) Comment Only: Other Respiratory Problems/Disorders - CPAP at night History: Reports: Other Problems/Disorders - hx frequency & urgency Sensory History: Denies: Hx Hearing Aid Psychiatric History: Denies: Hx Panic Disorder - Cancer History Cancer Type, 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 PROSTATE REMOVAL FROM [place]. GALLBLADDER 1994 Infectious Disease History: No Infectious Disease History: Denies: Traveled Outside the [place] in Last 30 Days - Social History Alcohol Use: None Substance Use Type: Reports: None Smoking Status (MU): Never Smoked Tobacco Review of Systems Positive: Palpitations. Negative: Chest Pain Positive: frequency All Other Systems Reviewed And Are Negative: Yes Physical Exam - Summary Physical Exam Summary: VITAL SIGNS: Reviewed. GENERAL: Patient is a well-developed and nourished male who is lying comfortable in the stretcher. Patient is not in any acute respiratory distress. HEAD AND FACE: No signs of trauma. No ecchymosis, hematomas or skull depressions. No sinus tenderness. EYES: PERRLA, EOMI x 2, No injected conjunctiva, no nystagmus. EARS: Hearing grossly intact. Ear canals and tympanic membranes are within normal limits. MOUTH: Oropharynx within normal limits. NECK: Supple, trachea is midline, no adenopathy, no JVD, no carotid bruit, no c- spine tenderness, neck with full ROM. CHEST: Symmetric, no tenderness at palpation LUNGS: Clear to auscultation bilaterally. No wheezing or crackles. CVS: irregularly tachycardia, S1 and S2 present, no murmurs or gallops appreciated. ABDOMEN: Soft, non-tender. No signs of distention. No rebound no guarding, and no masses palpated. Bowel sounds are normal. EXTREMITIES: FROM in all major joints, no edema, no cyanosis or clubbing. NEURO: Alert and oriented x 3. No acute neurological deficits. Speech is normal and follows commands. SKIN: Dry and warm Triage Information Reviewed: Yes Vital Signs On Initial Exam: Initial Vitals Temp Pulse Resp BP Pulse Ox 98.3 F 75 16 127/94 93 10/23/17 04:53 10/23/17 04:53 10/23/17 04:53 10/23/17 04:53 10/23/17 04:53 Vital Signs Reviewed: Yes Diagnostics - Vital Signs Vital Signs Temp Pulse Resp BP Pulse Ox 10/23/17 04:53 98.3 F 75 16 127/94 93 - Laboratory Lab Results: Lab Results 10/23/17 10/23/17 10/23/17 Range/Units 05:10 05:10 05:10 WBC 7.4 (3.5-10.8) 10^3/ul RBC 4.66 (4.0-5.4) 10^6/ul Hgb 15.1 (14.0-18.0) g/dl Hct 44 (42-52) % MCV 94 (80-94) fL MCH 33 H (27-31) pg MCHC 34 (31-36) g/dl RDW 14 (10.5-15) % Plt Count 234 (150-450) 10^3/ul MPV 8 (7.4-10.4) um3 Neut % (Auto) 54.0 (38-83) % Lymph % (Auto) 35.2 (25-47) % [place]ima % (Auto) 7.7 (1-9) % Eos % (Auto) 2.1 (0-6) % Baso % (Auto) 1.0 (0-2) % Absolute Neuts (auto) 4.0 (1.5-7.7) 10^3/ul Absolute Lymphs (auto) 2.6 (1.0-4.8) 10^3/ul Absolute Monos (auto) 0.6 (0-0.8) 10^3/ul Absolute Eos (auto) 0.2 (0-0.6) 10^3/ul Absolute Basos (auto) 0.1 (0-0.2) 10^3/ul Absolute Nucleated RBC 0 10^3/ul Nucleated RBC % 0.1 INR (Anticoag Therapy) 1.92 H (0.77-1.02) APTT 37.6 H (26.0-36.3) seconds Sodium 139 (133-145) mmol/L Potassium 3.8 (3.5-5.0) mmol/L Chloride 106 (101-111) mmol/L Carbon Dioxide 26 (22-32) mmol/L Anion Gap 7 (2-11) mmol/L BUN 14 (6-24) mg/dL Creatinine 0.99 (0.67-1.17) mg/dL Est GFR ( Amer) 94.3 (>60) Est GFR (Non-Af Amer) 73.3 (>60) BUN/Creatinine Ratio 14.1 (8-20) Glucose 148 H (70-100) mg/dL Calcium 9.2 (8.6-10.3) mg/dL Magnesium 2.1 (1.9-2.7) mg/dL Total Bilirubin 0.60 (0.2-1.0) mg/dL AST 17 (13-39) U/L ALT 16 (7-52) U/L Alkaline Phosphatase 39 (34-104) U/L Troponin I 0.01 (<0.04) ng/mL Total Protein 6.9 (6.4-8.9) g/dL Albumin 4.2 (3.2-5.2) g/dL Globulin 2.7 (2-4) g/dL Albumin/Globulin Ratio 1.6 (1-3) TSH 3.11 (0.34-5.60) mcIU/mL Result Diagrams: 10/23/17 05:10 10/23/17 05:10 Lab Statement: Any lab studies that have been ordered have been reviewed, and results considered in the medical decision making process. - EKG 0455 Cardiac Rate: NL EKG Rhythm: Atrial Fibrillation - at 138 BPM EKG Interpretation: depressions most likely rate related 0617 Cardiac Rate: NL EKG Rhythm: Atrial Fibrillation - at 87 BPM EKG Interpretation: No ischemic changes Course/Dx - Course Assessment/Plan: This patient is a 77 year old M presenting to [facility] accompanied by his with with a chief complaint of chest palpitation since earlier this morning. The patient rates the pain 7/10 in severity. Patient reports increased urination. Patient denies CP pain. Pt had cardiac bypass and has had 2 episodes similar to this one. The last one was 20 years ago. Last two episodes he was shocked to fix it. Pt is on warfarin for Afib. An EKG reveals afib 138 ST depression most likely rate related. Test results with no significant abnormalities. In the ED course the patient was given lovenox, digoxin, IV fluids, and Diltiazem. We discussed patient care with Dr. English and they recommended to hold the patient in the ED and he will come see them. Patient is signed out to Dr. Knight, pending disposition, awaiting cardiology consult - Diagnoses Provider Diagnoses: A-fib - Physician Notifications Discussed Care Of Patient With: Farideh English Time Discussed With Above Provider: 06:40 Instructed by Provider To: Other - We discussed patient care with Dr. English and they recommended to hold the patient in the ED and he will come see them. Discharge - Discharge Plan Condition: Stable Disposition: OTHER Discharge Disposition Comment: Pending Cardiology consult Referrals: Primitivo Zapien MD [Primary Care Provider] - The documentation as recorded by the Carrol jackson Gabriel accurately reflects the service I personally performed and the decisions made by me, Susie Tolentino MD.
[2017-10-23] MEDS ORDERED: Lidocaine 2% VISCOUS* 15 ML UDC ONE (10:08)
[2017-10-23] MEDS ORDERED: Flumazenil* 0.1 MG/ML 5 ML MDV ONE (10:08)
[2017-10-23] MEDS ORDERED: fentaNYL* 50 MCG/ML 2 ML VIAL (100 MCG VIAL) ONE (10:08)
[2017-10-23] MEDS ORDERED: Naloxone* 0.4 MG/ML 1 ML VIAL ONE (10:08)
[2017-10-23] MEDS ORDERED: Midazolam* 1 MG/ML 10 ML VIAL (10 MG) ONE (10:08)
[2017-10-23 13:05] VITALS: BP 108/72
--- NOTE | 2017-10-23 14:02 | TEE ---
Patient: EB MITTAL [facility] Rec#: [id number] : 1940 Date: 10/23/2017 Age: 77y Height: 177.8 cm / 70.0 in Weight: 83.01 kg / 183.0 lbs Sex: M BSA: 2.01 Room#: ED 12 Admit Date#: 10/23/2017 Type: Outpatient Referring: Singh Lo MD Performing: Singh Lo MD Reading: Singh Lo MD It Service Delivery Manager: Evelyn Clayton,RD,RDMS Nurse: Sendy Trejo RN Transesophageal Echocardiogram Indication: AFIB BP: 130/70 HR: 97 Rhythm: A-Fib Findings History: CAD, CABG, angina, AFIB, sleep apnea Technical Comments: The study quality is good. Left Ventricle: Mild concentric left ventricular hypertrophy is observed. The left ventricle appears hyperdynamic. The estimated ejection fraction is 60-65%. The assessment of diastolic function is non-diagnostic. Left Atrium: The left atrium is mild to moderately dilated. There is no thrombus visualized in the left atrial appendage. Right Ventricle: The right ventricle wall thickness is mildly increased. The right ventricular cavity size is normal. The right ventricular global systolic function is mildly reduced. Right Atrium: The right atrium is mild to moderately dilated. A prominent eustachian valve is noted in the right atrium. There were late bubbles seen in the left atrium. Negative with valsalva. Late appearance of contrast is c/w intrapulmonary shunting. There is evidence of an atrial septal aneurysm. Aortic Valve: The aortic valve is trileaflet. The aortic valve leaflets are mildly thickened. Systolic excursion of the aortic valve cusps is reduced. There is no evidence of aortic regurgitation. There is mild aortic stenosis. Mitral Valve: The mitral valve leaflets appear normal. There is trace to mild mitral regurgitation. There is no evidence of mitral stenosis. Tricuspid Valve: The tricuspid valve leaflets are normal. There is trace tricuspid regurgitation. Pulmonic Valve: The pulmonic valve appears normal. There is no evidence of pulmonic regurgitation. Pericardium: There is no significant pericardial effusion. Aorta: The aortic root appears normal. There is plaque visualized in the ascending aorta. Pulmonary Artery: The main pulmonary artery appears normal. Venous: The inferior vena cava appears normal. The pulmonary veins appear normal. 2 out of 4 well visualized The superior vena cava appears normal. CARLOS Procedures: All standard views were attempted within the limitations of patient tolerance and safety. History and physical as well as labs were reviewed. The patient was in a fasting state. Risks and benefits of the procedure, including alternatives, were discussed and written informed consent was obtained. The patient and/or their health care human resources hr representative expressed understanding of the procedure, risks and benefits. Baseline and continuous monitoring of blood pressure, heart rate, pulse oximetry and heart rhythm was performed throughout the procedure. The appropriate time-out procedure was performed as per [facility] protocol. The patient was placed in the left lateral decubitus position. The patient's posterior pharynx was anesthetized with 20ml of 2% viscous lidocaine. The patient received IV Midazolam with a total dose of 6 mg The patient received IV Fentanyl with a total dose of 25 mcg An oral bite block was inserted for protection of oral dentition. The multiplane transesophageal echocardiogram probe was inserted through the posterior oropharynx and advanced into the esophagus without difficulty. Multiple 2D images were obtained of the heart and its related structures. Color flow Doppler was used for evaluation. Spectral Doppler was also used. The atrial septum was interrogated with color flow Doppler. At the conclusion of the procedure the probe was removed with continuous suction without complications. The patient tolerated the procedure with no apparent complications. Contrast: Intravenous agitated saline contrast was used to assess intracardiac shunting. Images 40 and 41 Conclusions Patient in atrial fibrillation during the exam. Mild concentric left ventricular hypertrophy is observed. The left ventricle appears hyperdynamic. The estimated ejection fraction is 60-65%. The left atrium is mild to moderately dilated. There is no thrombus visualized in the left atrial appendage. The right ventricle wall thickness is mildly increased. The right ventricular global systolic function is mildly reduced. The right atrium is mild to moderately dilated. A prominent eustachian valve is noted in the right atrium. There is evidence of an atrial septal aneurysm. There were late bubbles seen in the left atrium. Negative with valsalva. Late appearance of contrast is c/w intrapulmonary shunting. The aortic valve leaflets are mildly thickened. Systolic excursion of the aortic valve cusps is reduced. There is mild aortic stenosis. There is trace to mild mitral regurgitation. There is plaque visualized in the ascending aorta. Measurements Name Value Normal Range IVSd (2D) 1.1 cm (0.6 - 1) LVPWd (2D) 1.2 cm (0.6 - 1) Aortic Annulus 2.1 cm (1.4 - 2.6) Ao root diameter (2D) 3.2 cm (2.1 - 3.5) Ascending Ao 2.9 cm (2.1 - 3.4) Name Value Normal Range MV E-wave Vmax 0.8 m/sec - MV deceleration time 111 msec -
--- NOTE | 2017-10-23 21:25 | CONS ---
CC: Dr. Zapien * CARDIOLOGY EVALUATION: DATE OF EVALUATION: 10/23/17 PATIENT OF: Dr. Zapien and Dr. Lo. HISTORY OF PRESENT ILLNESS: This is a very pleasant 77-year-old gentleman with a history of coronary artery disease, status post coronary artery bypass grafting, mild sick sinus syndrome with a low-average heart rate in sinus as well as paroxysmal atrial fibrillation, hyperlipidemia with multiple statin intolerances, hypertension. He said he was in his usual state of health until last night when he woke up about 1 in the morning feeling unwell. He was not immediately aware that his heart rate was irregular, but shortly after wandering around the house, he realized his heart was irregular and fast and he felt tired. Because of the symptoms, he came to the emergency room and Dr. Pacheco requested that I see him and he was in atrial fibrillation with an elevated ventricular response. He denied any caffeine or alcohol. He has sleep apnea and uses a mask. He denies any changes in medications recently. He did say he was more fatigued the last 2 weeks, but denied any fever, chills, sweats or bleeding problems. He has been taking his Coumadin and he said he had a INR a week ago that was 2.1. Of note, his INR today was subtherapeutic at 1.92. He denies orthopnea, PND or chest pain. His recent evaluation over the past year has included Holter monitor on 04/16/17, which revealed a low- average heart rate of 62, one 4-beat VT at 154, rare APCs, mild increase in heart rate to about 70s to 80s with walking. It was thought perhaps he had a blunted chronotropic response, but he declined any changes in his medicines. On 04/14/18, he had a negative stress echo from 9 minutes of the Madhav and 1 minute of the non-standard protocol to 11.6 METS to a total of 10 minutes and no significant changes with stress. He had APC's in Recovery and normal hyperdynamic response to exercise and increase in EF to 75% to 80%, slightly reduced exercise capacity compared to 2013 when he completed 12.8 METS. PAST SURGICAL HISTORY: Includes: 1. Prostatectomy in June 2003. 2. Coronary artery bypass grafting in May 2005 with a CAVAZOS to the LAD, LILLIANA to the PDA, saphenous vein graft to D1 and saphenous vein graft to OM in [place]. 3. Cholecystectomy on 07/12/17, laparoscopic. 4. Atrial fibrillation, post-op May 2005, July 2007, and June 2014. 5. He had a subconjunctival bleed on Xarelto. 6. He has a history of asthma. MEDICATIONS: Include: 1. Lovaza 1 g a day. 2. Warfarin 5 mg alternating with 7.5 mg. 3. Aspirin 81 mg. 4. Diltiazem XR 120 mg. 5. CPAP. 6. Ambien 5 mg q.p.m. as needed. ALLERGIES: Include LIPITOR, PRAVACHOL, NIASPAN, CRESTOR, CHOCOLATE and STRAWBERRIES. SOCIAL HISTORY: He is , accompanied by his . He is retired. PHYSICAL EXAM: General: He is a well-developed, well-nourished gentleman, in no apparent distress. Vital Signs: Heart rate of 110, irregular; blood pressure 128/72. No significant JVD. Cardiac Exam: S1, S2 with no clicks, murmurs, gallops, or rubs. Chest: Clear. Abdomen: Bowel sounds present. Nontender. Femoral pulses intact without bruits. Distal pulses intact without edema. DIAGNOSTIC STUDIES/LAB DATA: Labs include a normal CBC. Potassium low normal at 3.8, elevated glucose of 148, magnesium of 2.1, troponin of 0.01, TSH 3.11. INR of 1.92 as mentioned above. IMPRESSION: My impression is that Mr. Cardenas has a history of sinus node dysfunction, paroxysmal atrial fibrillation, coronary artery disease, and hypertension and some fatigue. I did discuss with him in the past and again today with his present that some of his symptoms could be due to chronotropic insufficiency and symptomatic sinus bradycardia. We discussed potential for pacemaker implantation if indeed his symptoms are related to sinus node dysfunction. In the meantime, I have recommended the following: Given his subtherapeutic INR, it is just a fatigue. I did cardioversion. He received Lovenox this morning and I will continue Lovenox until we confirm that his INR is therapeutic. He is to increase the dietary intake of potassium to try to maintain his potassium over 4. He is to follow up in the office in 2 to 4 weeks. 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 He also informed me that he had a loose tooth in his left upper jaw that was identified on exam. Special precautions were going to be made to avoid direct contact with that tooth during the CARLOS-guided cardioversion. He understands the potential for that tooth to dislodge. I suggested he followup with his dentist as an outpatient to address that. He is to follow up with his primary care doctor to address his elevated glucoses. He is to increase his dietary intake of potassium. Medical decision making complex and over the half of the 45+ minutes was spent in discussion with the patient and coordination of care. [id number]/[facility] #: [id number] MAMADOU
--- NOTE | 2017-10-24 05:27 | CARD ---
CC: Dr. Zapien * DATE OF PROCEDURE: 10/23/17 - EMERGENCY DEPT PROCEDURE: Cardioversion. INDICATIONS: This is a 77-year-old gentleman with a history of paroxysmal atrial fibrillation who presented with an irregular heartbeat and feeling poorly. He was found to be in AFib with a rapid ventricular response. He was in a fasting state. Informed consent was obtained. He was pre-medicated with 6 mg of Versed and 25 mcg of fentanyl for a transesophageal echo. He did explain that he had a loose left tooth in his upper jaw left posterior, the tooth was identified, and was stable throughout the procedure. A CARLOS was performed prior to the cardioversion to evaluate for thrombus since his INR was subtherapeutic. No evidence of thrombus was seen. The patient underwent cardioversion with a single biphasic shock of 120 joules to normal sinus rhythm. IMPRESSION: Mr. Cardenas had another episode of paroxysmal atrial fibrillation with a subtherapeutic INR. PLAN: We will watch for recovery from conscious sedation. He was given Lovenox prior to the procedure. We will continue on Lovenox until he has repeat INR that is therapeutic. He plans on having his INR on 10/25/17. He is to increase his dietary intake of potassium given his low normal potassium of 3.8. 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 [id number]/[facility] #: [id number] MTDD
== END 2017-10-23 13:05 ==
LOC: ED 04:50
DX: I48.91 Unspecified atrial fibrillation (principal); R00.2 Palpitations; Z86.79 Personal history of other diseases of the circulatory system; Z95.0 Presence of cardiac pacemaker
CPT/HCPCS: 36415; 80053; 83735; 84443; 84484; 85025; 85610; 85730; 92960; 93005; 93312; 93325; 96374; 96375; 99156; 99157; 99283; J1160; J1650; J2250; J2310; J3010

== ENCOUNTER 2018-10-23 11:00 | Emergency (ER) | payer MEDICARE, BC ==
--- NOTE | 2018-10-23 11:34 | ED ---
Palpitations / Dysrhythmia - HPI Summary HPI Summary: A 78 y/o male brought in by [facility] ambulance presents to [facility] with a chief complaint of thinking that he is in Atrial Fibrillation since 04:00 this morning. In the ED he thinks that his Afib is resolved. He sees Dr. Lo, teacher education instructor, because he had Atrial Fibrillation in December 2017. He says that his symptoms which are still present are headache, dizziness, lightheadedness, dry mouth, fever, cough and body aches. He reports that he has not taken his temperature but he feels hot. Temperature at triage noted at 99.6. He also c/o dysuria and says that at night he urinates every two hours. He also says that he sees Dr. Yadav, urologist, and he reportedly does not know why this occurs. He denies diaphoresis, chills, runny nose, back pain, erythema (eyes), sore throat, chest pain, shortness of breath, abdominal pain, vomiting, nausea, hematuria, edema and rash. He says that he felt completely fine yesterday. He denies a Hx of emphysema, COPD or DM. He says that his blood glucose is usually in the 133-139 range. At triage the patient rated his pain as a 2/10 in severity. Vital signs while in room- HR: 89bpm, O2 Sat: 94, BP: 127/87. - History of Current Complaint Chief Complaint: EDWeakness Hx Obtained From: Patient, EMS Onset/Duration: Sudden Onset, Lasting Hours, Still Present Timing: Constant Severity Initially: Mild Severity Currently: Mild Character: Irregular Aggravating: Nothing Alleviating: Nothing Associated Signs & Symptoms: Lightheadedness, Dizzy - Allergy/Home Medications Allergies/Adverse Reactions: Allergies Allergy/AdvReac Type Severity Reaction Status Date / Time niacin Allergy Intermediate Flushing Verified 10/26/18 01:43 [From Niaspan Extended-Release] acetaminophen [From Lortab] Allergy Unknown Verified 10/26/18 01:43 Reaction Details hydrocodone [From Lortab] Allergy Unknown Verified 10/26/18 01:43 Reaction Details atorvastatin [From Lipitor] AdvReac Muscle Ache Verified 10/26/18 01:43 pravastatin AdvReac Muscle Ache Verified 10/26/18 01:43 CHOCOLATE Allergy Unknown Uncoded 10/26/18 01:43 Reaction Details strawberries Allergy Hives Uncoded 10/26/18 01:43 PMH/Surg Hx/FS Hx/Imm Hx Endocrine/Hematology History: Denies: Hx Diabetes Cardiovascular History: Reports: Hx Angina, Hx Atrial Fibrillation, Hx Coronary Artery Disease, Hx Hypercholesterolemia, Hx Pacemaker/ICD - afib, Other Cardiovascular Problems/Disorders - heart bypass 1994 Denies: Hx Congestive Heart Failure, Hx Hypertension, Hx Myocardial Infarction, Hx Valvular Heart Disease Respiratory History: Reports: Hx Sleep Apnea Denies: Hx Asthma, Hx Chronic Obstructive Pulmonary Disease (COPD) Comment Only: Other Respiratory Problems/Disorders - CPAP at night History: Reports: Other Problems/Disorders - hx frequency & urgency Sensory History: Denies: Hx Hearing Aid Psychiatric History: Denies: Hx Panic Disorder - Cancer History Cancer Type, 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 PROSTATE REMOVAL FROM [place]. GALLBLADDER 1994 - Immunization History Date of Influenza Vaccine: This flu season Infectious Disease History: No Infectious Disease History: Denies: Traveled Outside the [place] in Last 30 Days - Family History Known Family History: Positive: Hypertension, Other - Positive: Atrial fibrillation - Social History Alcohol Use: None Substance Use Type: Reports: None Smoking Status (MU): Never Smoked Tobacco Review of Systems Positive: Fever. Negative: Chills, Skin Diaphoresis Negative: Erythema ENT: Other - positive: dry mouth Negative: Sore Throat Positive: Other - Positive: felt like he was in atrial fibrillation. Negative: Chest Pain Negative: Shortness Of Breath Negative: Abdominal Pain, Vomiting, Nausea Positive: dysuria. Negative: hematuria Positive: Other - Positive: body aches. Negative: Edema Negative: Rash Neurological: Other - Positive: headache, lightheadedness Positive: Headache All Other Systems Reviewed And Are Negative: Yes Physical Exam - Summary Physical Exam Summary: Constitutional: Well-developed, Well-nourished, Alert. (-) Distressed Skin: Warm, Dry HENT: Normocephalic; Atraumatic Eyes: Conjunctiva normal Neck: Musculoskeletal ROM normal neck. (-) JVD, (-) Stridor, (-) Tracheal deviation Cardio: Rhythm regular, rate normal, Heart sounds normal; Intact distal pulses; The pedal pulses are 2+ and symmetric. Radial pulses are 2+ and symmetric. (-) Murmur Pulmonary/Chest wall: Effort normal. (+) crackles in the right lower lung field , (-) Respiratory distress, (-) Wheezes, (-) Rales Abd: Soft, (-) epigastric tenderness, (-) Distension, (-) Guarding, (-) Rebound Musculoskeletal: (-) Edema Lymph: (-) Cervical adenopathy Neuro: Alert, Oriented x3 Psych: Mood and affect Normal Triage Information Reviewed: Yes Vital Signs On Initial Exam: Initial Vitals Temp Pulse Resp BP Pulse Ox 99.6 F 88 20 127/87 94 10/23/18 11:04 10/23/18 11:04 10/23/18 11:04 10/23/18 11:04 10/23/18 11:04 Vital Signs Reviewed: Yes Diagnostics - Vital Signs Vital Signs Temp Pulse Resp BP Pulse Ox 10/23/18 11:04 99.6 F 88 20 127/87 94 - Laboratory Result Diagrams: 10/23/18 11:44 10/23/18 11:44 Lab Statement: Any lab studies that have been ordered have been reviewed, and results considered in the medical decision making process. - Radiology CXR Radiology Interpretation Completed By: Radiologist Summary of Radiographic Findings: Stigmata of obstructive lung disease. Mild probable linear atelectasis at the LEFT lung base. Negative for pulmonary edema. ED physician has reviewed this imaging report. - EKG 11:38 Cardiac Rate: NL - 86 bpm EKG Rhythm: Sinus Rhythm Summary of EKG Findings: Normal sinus rhythm at 86 bpm, no STEMI. Re-Evaluation - Re-Evaluation First Eval Re-Evaluation Time: 15:57 Course/Dx - Course Course Of Treatment: A 78 y/o male brought in by [facility] ambulance presents to [facility] with a chief complaint of thinking that he is in Atrial Fibrillation since 04:00 this morning. In the ED he thinks that his Afib is resolved. He sees Dr. Lo, teacher education instructor, because he had Atrial Fibrillation in December 2017. He says that his symptoms which are still present are headache, dizziness , lightheadedness, dry mouth, fever, cough and body aches. He reports that he has not taken his temperature but he feels hot. Temperature at triage noted at 99.6. He also c/o dysuria and says that at night he urinates every two hours. He also says that he sees Dr. Yadav, urologist, and he reportedly does not know why this occurs. He denies diaphoresis, chills, runny nose, back pain, erythema (eyes), sore throat, chest pain, shortness of breath, abdominal pain, vomiting, nausea, hematuria, edema and rash. He says that he felt completely fine yesterday. He denies a Hx of emphysema, COPD or DM. He says that his blood glucose is usually in the 133-139 range. At triage the patient rated his pain as a 2/10 in severity. Vital signs while in room- HR: 89bpm, O2 Sat: 94, BP : 127/87. The physical exam revealed crackles in the right lower lung field. An EKG at 11:38 showed Normal sinus rhythm at 86 bpm, no STEMI. Lab results obtained and are WNL. He tested negative for Influenza A and Influenza B. THe patient tested negative for Influenza A and Influenza B. CXR impression: Stigmata of obstructive lung disease. Mild probable linear atelectasis at the LEFT lung base. Negative for pulmonary edema. No arrhythmias were identified. Pulses were regular and no pneumonia was identified. The patient was. prescribed Azitrhomycin and will be discharged home with follow up from his PCP. Return precautions were given. The patient is agreeable with this plan. - Diagnoses Provider Diagnoses: Bronchitis, Palpitations Discharge - Sign-Out/Discharge Documenting (check all that apply): Patient Departure - DC Patient Received Moderate/Deep Sedation with Procedure: No - Discharge Plan Condition: Stable Disposition: HOME Prescriptions: Azithromycin TAB* [Zithromax TAB (Z-TAN) 250 mg #6 tabs] 250 mg PO DAILY #4 tab Patient Education Materials: Heart Palpitations (ED) Referrals: Primitivo Zapien MD [Primary Care Provider] - (2-3 days) Additional Instructions: Return to the ED if you experience any new or worsening symptoms. - Billing Disposition and Condition Condition: STABLE Disposition: Home - Attestation Statements Document Initiated by Scribe: Yes Documenting Scribe: Juarez Amin Provider For Whom Scribe is Documenting (Include Credential): Rafiq Dee MD Scribe Attestation: IJuarez, scribed for Rafiq Dee MD on 10/26/18 at 0740. Scribe Documentation Reviewed: Yes Provider Attestation: The documentation as recorded by the scribe, Juarez Amin accurately reflects the service I personally performed and the decisions made by me, Rafiq Dee MD Status of Scribe Document: Viewed
[2018-10-23 11:55] LABS: ABS Basophils 0 10^3/ul (0-0.2); ABS Eosinophils 0 10^3/ul (0-0.6); ABS Lymphocytes 0.5 10^3/ul (1.0-4.8); ABS Monocytes 0.3 10^3/ul (0-0.8); ABS Neutrophils 9.4 10^3/ul (1.5-7.7); ABS Nucleated RBC 0 10^3/ul; Eosinophil % 0.2 %; Hematocrit 45 % (42-52); Hemoglobin 15.3 g/dl (14.0-18.0); Lymphocyte % 4.5 %; Mean Corpuscular HGB Conc 34 g/dl (31-36); Mean Corpuscular Hemoglobin 32 pg (27-31); Mean Corpuscular Volume 95 fL (80-94); Mean Platelet Volume 7.7 fL (7.4-10.4); Nucleated Red Blood Cells % 0; Platelet Count 205 10^3/ul (150-450); Red Blood Count 4.71 10^6/ul (4.00-5.40); Red Cell Distribution Width 13 % (10.5-15); White Blood Count 10.3 10^3/ul (3.5-10.8)
[2018-10-23 12:08] LABS: Influenza A Molecular NEGATIVE (Negative); Influenza B Molecular NEGATIVE (Negative)
[2018-10-23 12:10] LABS: Activated Partial Thrombo Time 36.2 seconds (26.0-36.3); INR 2.18 (0.77-1.02)
[2018-10-23 12:27] LABS: Albumin 4.3 g/dL (3.2-5.2); Albumin/Globulin Ratio 1.8 (1-3); BUN/Creatinine Ratio 19.1 (8-20); Calcium 9.2 mg/dL (8.6-10.3); EGFR African American 78.3 (>60); EGFR Non-African American 64.7 (>60); Globulin 2.4 g/dL (2-4); Potassium 4.5 mmol/L (3.5-5.0); Total Bilirubin 0.8 mg/dL (0.2-1.0); Total Protein 6.7 g/dL (6.4-8.9)
[2018-10-23 12:28] LABS: Troponin I 0.01 ng/mL (<0.04)
[2018-10-23 14:59] LABS: Urine Appearance Cloudy; Urine Bacteria Absent (Absent); Urine Bilirubin Negative (Negative); Urine Blood 3+ (Negative); Urine Color Yellow; Urine Glucose Negative (Negative); Urine Ketones Negative (Negative); Urine Nitrite Negative (Negative); Urine Protein Negative (Negative); Urine Red Blood Cell 3+(>10/hpf) (Absent); Urine Specific Gravity 1.023 (1.010-1.030); Urine Urobilinogen Negative (Negative); Urine White Blood Cell Trace(0-5/hpf) (Absent)
[2018-10-23] MEDS ORDERED: Acetaminophen TAB* 325 MG PO ONE (16:03)
[2018-10-23] MEDS ORDERED: Azithromycin TAB* 250 MG PO ONE (16:06)
[2018-10-23 16:28] VITALS: BP 137/68
== END 2018-10-23 16:27 | disposition home or self-care (01) ==
LOC: ED 11:00
DX: J40 Bronchitis, not specified as acute or chronic (principal); R00.2 Palpitations; R42 Dizziness and giddiness; R30.0 Dysuria; I25.119 Atherosclerotic heart disease of native coronary artery with unspecified angina pectoris; Z95.1 Presence of aortocoronary bypass graft; Z88.6 Allergy status to analgesic agent; Z88.5 Allergy status to narcotic agent; Z88.8 Allergy status to other drugs, medicaments and biological substances
CPT/HCPCS: 36415; 71045; 80053; 81003; 81015; 83605; 84484; 85025; 85610; 85730; 87040; 87086; 93005; 99283; A9270-GY

== ENCOUNTER 2018-10-26 01:33 | Emergency (ER) | payer MEDICARE, BC ==
[2018-10-26] MEDS ORDERED: Midazolam* 1 MG/ML 5 ML VIAL (5 MG) ONE (01:53)
[2018-10-26] MEDS ORDERED: fentaNYL* 50 MCG/ML 2 ML VIAL (100 MCG VIAL) ONE (01:53)
--- NOTE | 2018-10-26 01:55 | ED ---
Palpitations / Dysrhythmia - HPI Summary HPI Summary: This patient is a 78 year old M brought in by ambulance to [facility] accompanied by his with a chief complaint of rapid heart palpitations since 23:00. The patient rates the pain 0/10 in severity. Symptoms aggravated by nothing. Symptoms alleviated by nothing. Patient reports he took NTG x2 and then experienced a syncopal episode. Pt has hx of AFib and takes Coumadin. - History of Current Complaint Chief Complaint: EDDysrhythmPalp Time Seen by Provider: 10/26/18 01:43 Hx Obtained From: Patient Onset/Duration: Sudden Onset, Lasting Hours, Still Present Timing: Constant Severity Initially: Moderate Severity Currently: Moderate Character: Fast Aggravating: Nothing Alleviating: Nothing Associated Signs & Symptoms: Syncope - Allergy/Home Medications Allergies/Adverse Reactions: Allergies Allergy/AdvReac Type Severity Reaction Status Date / Time niacin Allergy Intermediate Flushing Verified 10/26/18 01:43 [From Niaspan Extended-Release] acetaminophen [From Lortab] Allergy Unknown Verified 10/26/18 01:43 Reaction Details hydrocodone [From Lortab] Allergy Unknown Verified 10/26/18 01:43 Reaction Details atorvastatin [From Lipitor] AdvReac Muscle Ache Verified 10/26/18 01:43 pravastatin AdvReac Muscle Ache Verified 10/26/18 01:43 CHOCOLATE Allergy Unknown Uncoded 10/26/18 01:43 Reaction Details strawberries Allergy Hives Uncoded 10/26/18 01:43 PMH/Surg Hx/FS Hx/Imm Hx Endocrine/Hematology History: Denies: Hx Diabetes Cardiovascular History: Reports: Hx Angina, Hx Atrial Fibrillation, Hx Coronary Artery Disease, Hx Hypercholesterolemia, Hx Pacemaker/ICD - afib, Other Cardiovascular Problems/Disorders - heart bypass 1994 Denies: Hx Congestive Heart Failure, Hx Hypertension, Hx Myocardial Infarction, Hx Valvular Heart Disease Respiratory History: Reports: Hx Sleep Apnea Denies: Hx Asthma, Hx Chronic Obstructive Pulmonary Disease (COPD) Comment Only: Other Respiratory Problems/Disorders - CPAP at night History: Reports: Other Problems/Disorders - hx frequency & urgency Sensory History: Denies: Hx Hearing Aid Psychiatric History: Denies: Hx Panic Disorder - Cancer History Cancer Type, 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 PROSTATE REMOVAL FROM [place]. GALLBLADDER 1994 - Immunization History Date of Tetanus Vaccine: utd Date of Influenza Vaccine: fall 2017 Infectious Disease History: No Infectious Disease History: Denies: Traveled Outside the [place] in Last 30 Days - Family History Known Family History: Positive: Hypertension, Other - Positive: Atrial fibrillation - Social History Alcohol Use: None Substance Use Type: Reports: None Smoking Status (MU): Never Smoked Tobacco Review of Systems Negative: Fever Negative: Epistaxis Positive: Palpitations - rapid HR Negative: Vomiting Positive: Syncope All Other Systems Reviewed And Are Negative: Yes Physical Exam - Summary Physical Exam Summary: VITAL SIGNS: Reviewed. GENERAL: Patient is a well-developed and nourished MALE who is lying comfortable in the stretcher. Patient is not in any acute respiratory distress. HEAD AND FACE: No signs of trauma. No ecchymosis, hematomas or skull depressions. No sinus tenderness. EYES: PERRLA, EOMI x 2, No injected conjunctiva, no nystagmus. EARS: Hearing grossly intact. Ear canals and tympanic membranes are within normal limits. MOUTH: Oropharynx within normal limits. NECK: Supple, trachea is midline, no adenopathy, no JVD, no carotid bruit, no c- spine tenderness, neck with full ROM. CHEST: Symmetric, no tenderness at palpation LUNGS: Clear to auscultation bilaterally. No wheezing or crackles. CVS: Irregular tachycardia, S1 and S2 present, no murmurs or gallops appreciated. ABDOMEN: Soft, non-tender. No signs of distention. No rebound no guarding, and no masses palpated. Bowel sounds are normal. EXTREMITIES: FROM in all major joints, no edema, no cyanosis or clubbing. NEURO: Alert and oriented x 3. No acute neurological deficits. Speech is normal and follows commands. SKIN: Dry and warm Triage Information Reviewed: Yes Vital Signs On Initial Exam: Initial Vitals Temp Pulse Resp BP Pulse Ox 97.0 F 131 20 69/52 93 10/26/18 01:35 10/26/18 01:35 10/26/18 01:35 10/26/18 01:35 10/26/18 01:35 Vital Signs Reviewed: Yes Procedures - Procedure Summary Procedure Summary: Moderate sedation: Verbal consent was obtained for moderate sedation and moderate sedation protocol was followed. 2.5 mg Versed and 50 ug Fentanyl IV were administered. Moderate sedation was accomplished and vital signs were stable throughout the procedure. No reversal agent was used. Time spent was 15 minutes. Cardioversion: Cardioversion was performed under moderate sedation. Pt was shocked with 120 joules sink and was converted to sinus rhythm on the 1st attempt. No complications. - Additional Procedures Additional Procedures: cardioversion/defib - Cardioversion was performed under moderate sedation. Pt was shocked with 120 joules sink and was converted to sinus rhythm on the 1st attempt. No complications. Diagnostics - Vital Signs Vital Signs Temp Pulse Resp BP Pulse Ox 10/26/18 01:35 97.0 F 131 20 69/52 93 - Laboratory Result Diagrams: 10/26/18 02:25 10/26/18 02:25 Lab Statement: Any lab studies that have been ordered have been reviewed, and results considered in the medical decision making process. - EKG 01:46 Cardiac Rate: Tachycardia - at 154 bpm EKG Rhythm: Atrial Fibrillation Summary of EKG Findings: Afib at 154 bpm with RBBB and ST depressions in the lateral leads. 02:08 Cardiac Rate: NL - at 82 bpm EKG Rhythm: Sinus Rhythm Summary of EKG Findings: sinus rhythm at 82 bpm with nml axis, nml intervals, and RBBB Course/Dx - Course Course Of Treatment: This patient is a 78 year old M with hx AFib brought in by ambulance to [facility] accompanied by his with a chief complaint of rapid heart palpitations since 23:00. 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 Pt says that he has been taking his Coumadin as prescribed. An EKG at 01:46 reveals Afib at 154 bpm with RBBB and ST depressions in the lateral leads. Verbal consent was obtained for moderate sedation and moderate sedation protocol was followed. 2.5 mg Versed and 50 ug Fentanyl IV were administered. Moderate sedation was accomplished and vital signs were stable throughout the procedure. No reversal agent was used. Time spent was 15 minutes. Cardioversion was performed under moderate sedation. Pt was shocked with 120 joules sink and was converted to sinus rhythm on the 1st attempt. No complications. An EKG at 02:08, post-cardioversion, reveals sinus rhythm at 82 bpm with nml axis, nml intervals, and RBBB. Test results with no significant abnormalities. In the ED course the patient was given fentanyl, versed, and IV fluids. Patient will be discharged home with follow up from bridge leverman. Dx paroxysmal AFib. The patient is agreeable with this plan. - Diagnoses Provider Diagnoses: Paroxysmal atrial fibrillation Discharge - Sign-Out/Discharge Documenting (check all that apply): Patient Departure - discharge home Patient Received Moderate/Deep Sedation with Procedure: Yes - moderate sedation - Discharge Plan Condition: Stable Disposition: HOME Patient Education Materials: A-fib (Atrial Fibrillation) (ED), Moderate Sedation (ED) Referrals: Primitivo Zapien MD [Primary Care Provider] - Jr Jean MD [Medical Doctor] - 1 Day Additional Instructions: Follow up with bridge leverman in 1-2 days. Return to the emergency department with any new or worsening symptoms. - Attestation Statements Document Initiated by Scribe: Yes Documenting Scribe: Ena Barbosa Provider For Whom Scribe is Documenting (Include Credential): Susie Tolentino MD Scribe Attestation: Ena Esteban, scribed for Susie Tolentino MD on 10/26/18 at 0329. Status of Scribe Document: Ready Procedure Note: Sedation - Sedation/Analgesia Procedure: moderate sedation Informed Consent Obtained: Yes Plan for Sedation: Moderate Sedation Previous Problem with Sedation: No - Post Procedure Eval Total Sedation/Analgesia Time: Other - 15 minutes - Comments Additional Comments: Verbal consent was obtained for moderate sedation and moderate sedation protocol was followed. 2.5 mg Versed and 50 ug Fentanyl IV were administered. Moderate sedation was accomplished and vital signs were stable throughout the procedure. No reversal agent was used. Time spent was 15 minutes.
[2018-10-26] MEDS ORDERED: fentaNYL* 50 MCG/ML 2 ML VIAL (100 MCG VIAL) IV SLOW PU ONE (02:03)
[2018-10-26] MEDS ORDERED: Midazolam* 1 MG/ML 5 ML VIAL (5 MG) SLOW PUSH ONE (02:03)
[2018-10-26] MEDS ORDERED: NS 0.9% 1000 ML** 1,000 ML IV ONE (02:04)
[2018-10-26 02:33] LABS: ABS Basophils 0 10^3/ul (0-0.2); ABS Eosinophils 0.1 10^3/ul (0-0.6); ABS Lymphocytes 1.6 10^3/ul (1.0-4.8); ABS Monocytes 0.7 10^3/ul (0-0.8); ABS Neutrophils 5.2 10^3/ul (1.5-7.7); ABS Nucleated RBC 0 10^3/ul; Eosinophil % 1.5 %; Hematocrit 38 % (42-52); Hemoglobin 12.8 g/dl (14.0-18.0); Lymphocyte % 21.1 %; Mean Corpuscular HGB Conc 33 g/dl (31-36); Mean Corpuscular Hemoglobin 32 pg (27-31); Mean Corpuscular Volume 95 fL (80-94); Nucleated Red Blood Cells % 0; Platelet Count 148 10^3/ul (150-450); Red Blood Count 4.05 10^6/ul (4.00-5.40); Red Cell Distribution Width 13 % (10.5-15); White Blood Count 7.7 10^3/ul (3.5-10.8)
[2018-10-26 02:41] LABS: Activated Partial Thrombo Time 35.4 seconds (26.0-36.3); INR 2.66 (0.77-1.02)
[2018-10-26 02:50] LABS: Albumin 3.5 g/dL (3.2-5.2); Albumin/Globulin Ratio 1.8 (1-3); BUN/Creatinine Ratio 19.2 (8-20); Calcium 8.3 mg/dL (8.6-10.3); EGFR African American 88.5 (>60); EGFR Non-African American 73.1 (>60); Globulin 1.9 g/dL (2-4); Magnesium 1.8 mg/dL (1.9-2.7); Potassium 3.6 mmol/L (3.5-5.0); Total Bilirubin 0.3 mg/dL (0.2-1.0); Total Protein 5.4 g/dL (6.4-8.9)
[2018-10-26 03:10] LABS: TSH (Thyroid Stimulating Horm) 3.82 mcIU/mL (0.34-5.60)
[2018-10-26 03:21] VITALS: BP 115/72
== END 2018-10-26 03:52 | disposition home or self-care (01) ==
LOC: ED 01:33
DX: I48.0 Paroxysmal atrial fibrillation (principal); Z79.01 Long term (current) use of anticoagulants; I25.119 Atherosclerotic heart disease of native coronary artery with unspecified angina pectoris; Z95.1 Presence of aortocoronary bypass graft; Z95.810 Presence of automatic (implantable) cardiac defibrillator; Z88.6 Allergy status to analgesic agent; Z88.5 Allergy status to narcotic agent; Z88.8 Allergy status to other drugs, medicaments and biological substances; Z91.018 Allergy to other foods
CPT/HCPCS: 36415; 80053; 83735; 84443; 85025; 85610; 85730; 92960; 93005; 99156; 99283; J2250; J3010

== ENCOUNTER → 2019-04-28 | Day surgery (SDC) | payer MEDICARE, BC ==
[~2019-04-28] MED LIST: Buffered Lidocaine 1% SYRIN* 1 ML/SYRINGE INTRADERM ONE; Cyclopentolate 1% OPTH.SOL* 2 ML BTL ONE; Ketorolac 0.5% OPHTH (NF) 0.5 % 5 ML BTL ONE; Lidocaine 1% MPF ** 5 ML VIAL ONE; Lidocaine 2% w/ EPI 1:200,000* 20 ML SDV VIAL ONE; Midazolam* 1 MG/ML 2 ML VIAL (2 MG) ONE; Neomycin/Polymy/Dex OPTH.SUSP* MAXITROL 0.1% 5 ML ONE; Phenylephrine OPHTH SOL 2.5%* 2 ML ONE; Povidone Iodine 5% OPTH* 30 ML BTL ONE; Proparacaine 0.5% OPHTH.SOL* 15 ML BTL ONE; acetaZOLAMIDE TAB* 250 MG ONE
--- NOTE | 2019-04-28 10:47 | OP ---
AMENDED REPORT NOW INCLUDES DATE OF OPERATION DATE OF OPERATION: 04/28/19 - OR [facility] DATE OF : 40 SURGEON: Austen Dawn M.D. PREOPERATIVE DIAGNOSIS: Cataract, right eye. POSTOPERATIVE DIAGNOSIS: Cataract, right eye. OPERATIVE PROCEDURE: Extracapsular cataract extraction with intraocular lens implant, right eye. DESCRIPTION OF PROCEDURE: The patient was brought to the operating room after being given 1/2% Alcaine with epinephrine drops in the preoperative area. The eye was prepped and draped in the usual sterile fashion. Sterile drape and eyelid speculum were placed. Again, topical 1/2% Alcaine with epinephrine was given. A paracentesis incision was made at the 9 o'clock position with the No.75 blade. Clear cornea incision 2.2 x 2.2-mm was created at the 12 o'clock position starting at the anterior limbus using the 2.2-mm keratome. The anterior chamber was irrigated with 0.4 mL of 1% non-preservative intracameral lidocaine and filled with DisCoVisc. A capsulorrhexis was completed using the cystotome and the Utrata forceps. Hydrodissection was performed with balanced salt solution. The lens nucleus was removed with the Phacoemulsification handpiece without incident. Cortex was removed with the irrigation-aspiration handpiece. The capsular bag was re-inflated using DisCoVisc and an [id number] implant was inserted with the shooter. The irrigation-aspiration handpiece was used to remove all residual DisCoVisc. The eye was refilled with balanced salt solution and the wound checked and found to be watertight. Topical Maxitrol drops were given. [id number]/[facility] #: [id number] [facility]
[2019-04-28 11:25] VITALS: BP 118/69
== END | disposition home or self-care (01) ==
LOC: OREAST 07:56
PROVIDERS: ATTEND Specialist
DX: H25.811 Combined forms of age-related cataract, right eye (principal); H40.053 Ocular hypertension, bilateral; C61 Malignant neoplasm of prostate; I10 Essential (primary) hypertension; I48.91 Unspecified atrial fibrillation; Z79.01 Long term (current) use of anticoagulants; E78.00 Pure hypercholesterolemia, unspecified; E11.9 Type 2 diabetes mellitus without complications
CPT/HCPCS: A9270-GY; J2250; V2632

== ENCOUNTER 2019-06-06 03:06 | Emergency (ER) | payer MEDICARE, BC ==
--- NOTE | 2019-06-06 03:35 | ED ---
Palpitations / Dysrhythmia - HPI Summary HPI Summary: 79 year old M presenting to [facility] with a chief complaint of heart palpitations since 00:30. The patient has no pain at the time of arrival. The patient reports feeling normal the previous day. 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 He denies any edema. He's had similar episodes in the past. Hx of angina, afib, CAD, HLD. - History of Current Complaint Chief Complaint: EDDysrhythmPalp Time Seen by Provider: 06/06/19 03:20 Hx Obtained From: Patient Onset/Duration: Sudden Onset, Lasting Minutes Severity Initially: Moderate Severity Currently: Moderate Character: Irregular Aggravating: Nothing Alleviating: Nothing - Allergy/Home Medications Allergies/Adverse Reactions: Allergies Allergy/AdvReac Type Severity Reaction Status Date / Time niacin Allergy Intermediate Flushing Verified 06/06/19 03:17 [From Niaspan Extended-Release] hydrocodone [From Lortab] Allergy Unknown Unknown Verified 06/06/19 03:17 Reaction Details acetaminophen [From Lortab] Allergy Unknown Verified 06/06/19 03:17 Reaction Details chocolate flavor Allergy Sneezing Verified 06/06/19 03:17 strawberry Allergy Hives Verified 06/06/19 03:17 atorvastatin [From Lipitor] AdvReac Severe Muscle Ache Verified 06/06/19 03:17 pravastatin AdvReac Severe Muscle Ache Verified 06/06/19 03:17 PMH/Surg Hx/FS Hx/Imm Hx Endocrine/Hematology History: Denies: Hx Diabetes Cardiovascular History: Reports: Hx Angina, Hx Atrial Fibrillation, Hx Coronary Artery Disease, Hx Hypercholesterolemia, Other Cardiovascular Problems/ Disorders - Afib Denies: Hx Congestive Heart Failure, Hx Hypertension, Hx Myocardial Infarction, Hx Pacemaker/ICD, Hx Valvular Heart Disease Respiratory History: Reports: Hx Sleep Apnea Denies: Hx Asthma, Hx Chronic Obstructive Pulmonary Disease (COPD) Comment Only: Other Respiratory Problems/Disorders - CPAP at night GI History: Reports: Hx Gastroesophageal Reflux Disease History: Reports: Other Problems/Disorders - hx frequency & urgency Denies: Hx Chronic Renal Failure, Hx Renal Disease Musculoskeletal History: Reports: Other Musculoskeletal History - spinal stenosis Sensory History: Reports: Hx Cataracts, Hx Contacts or Glasses - reading glasses , Hx Glaucoma - both eyes, Hx Hearing Aid - did not bring from home Opthamlomology History: Reports: Hx Cataracts, Hx Contacts or Glasses - reading glasses, Hx Glaucoma - both eyes Psychiatric History: Denies: Hx Panic Disorder - Cancer History Cancer Type, Location and Year: prostate cancer Hx Chemotherapy: No Hx Radiation Therapy: No - Surgical History Surgical History: Yes Surgery Procedure, Year, and Place: HEART BYPASS WITH NO STENTING 1992. PROSTATE REMOVAL FROM [place] GALLBLADDER 1994. VASECTOMY Hx Anesthesia Reactions: No - Immunization History Date of Tetanus Vaccine: utd Date of Influenza Vaccine: fall 2017 Infectious Disease History: No Infectious Disease History: Denies: Traveled Outside the [place] in Last 30 Days - Family History Known Family History: Positive: Hypertension, Other - Positive: Atrial fibrillation - Social History Alcohol Use: None Hx Substance Use: No Substance Use Type: Reports: None Hx Tobacco Use: No Smoking Status (MU): Never Smoked Tobacco Review of Systems Positive: Palpitations Positive: Arthralgia - In both elbows. Negative: Edema All Other Systems Reviewed And Are Negative: Yes Physical Exam - Summary Physical Exam Summary: Appearance: Well-appearing, Well-nourished, lying in bed comfortably Skin: Warm, dry, no obvious rash Eyes: sclera anicteric, no conjunctival pallor ENT: mucous membranes moist, pharynx appears normal Neck: Supple, nontender Respiratory: Clear to auscultation, no signs of respiratory distress Cardiovascular: Normal S1, S2. No murmurs. Normal distal pulses in tibial and radial bilaterally. Abdomen: Soft, nontender, normal active bowel sounds present Musculoskeletal: Normal, Strength/ROM Intact Neurological: A&Ox3, awake and alert, mentation is normal, speech is fluent and appropriate Psychiatric: affect is normal, does not appear anxious or depressed Triage Information Reviewed: Yes Vital Signs On Initial Exam: Initial Vitals Temp Pulse Resp BP Pulse Ox 97.1 F 90 18 125/102 94 06/06/19 03:16 06/06/19 03:16 06/06/19 03:16 06/06/19 03:16 06/06/19 03:16 Vital Signs Reviewed: Yes Diagnostics - Vital Signs Vital Signs Temp Pulse Resp BP Pulse Ox 06/06/19 03:24 95 06/06/19 03:20 96 13 93 06/06/19 03:18 125/102 06/06/19 03:16 97.1 F 90 18 125/102 94 - Laboratory Result Diagrams: 06/06/19 03:34 06/06/19 03:34 Lab Statement: Any lab studies that have been ordered have been reviewed, and results considered in the medical decision making process. - EKG 0310 Cardiac Rate: Other Rate - 147 bpm EKG Rhythm: Atrial Fibrillation - with rapid V-rate Summary of EKG Findings: EKG at 3:10 shows atrial fibrillation with rapid V- rate at [address] depression probably rate related. No STEMI. 0329 Cardiac Rate: NL - 90 bpm EKG Rhythm: Sinus Rhythm Summary of EKG Findings: EKG at 3:29 shows normal sinus rhythm at 90 bpm. Conversion to NSR with resolution of ST depressions. No STEMI. Re-Evaluation - Re-Evaluation First Eval Re-Evaluation Time: 04:20 Comment: We discussed all results and plan for discharge. Course/Dx - Course Course Of Treatment: 79 year old M presenting to [facility] with a chief complaint of heart palpitations since 00:30 accompanied by pain in the elbows. Hx of angina, afib, CAD. Physical exam is normal. Laboratory results show an MCV of 96 H, and MCH of 33 H, an INR of 1.26 H, and glucose of 153 H. EKG at 03:10 shows atrial fibrillation with rapid V-rate at 147 bpm, ST depression probably rate related, No STEMI. Second EKG at 03:29 shows normal sinus rhythm at 90 bpm. Conversion to NSR with resolution of ST depressions. No STEMI. We discussed all results and plan for discharge. He understands and agrees. Diagnosis is atrial fibrillation. - Diagnoses Provider Diagnoses: Atrial fibrillation Discharge ED - Sign-Out/Discharge Documenting (check all that apply): Patient Departure - Patient will be discharged home. Patient Received Moderate/Deep Sedation with Procedure: No - Discharge Plan Condition: Improved Disposition: HOME Patient Education Materials: A-fib (Atrial Fibrillation) (ED) Referrals: Singh Lo MD [Medical Doctor] - 3 Days - Billing Disposition and Condition Condition: IMPROVED Disposition: Home - Attestation Statements Document Initiated by Scribe: Yes Documenting Scribe: Amadeo Gregory Provider For Whom Scribe is Documenting (Include Credential): Alexandr Oleary MD. Scribe Attestation: Amadeo Esteban, scribed for Alexandr Oleary MD. on 06/07/19 at 0657. Scribe Documentation Reviewed: Yes Provider Attestation: The documentation as recorded by the scribe, Amadeo Gregory accurately reflects the service I personally performed and the decisions made by me, Alexandr Oleary MD. Status of Scribe Document: Viewed
[2019-06-06 03:43] LABS: ABS Basophils 0.1 10^3/ul (0-0.2); ABS Eosinophils 0.1 10^3/ul (0-0.6); ABS Lymphocytes 2.6 10^3/ul (1.0-4.8); ABS Monocytes 0.7 10^3/ul (0-0.8); ABS Neutrophils 5.5 10^3/ul (1.5-7.7); Eosinophil % 1.5 %; Hematocrit 43 % (42-52); Hemoglobin 14.8 g/dL (14.0-18.0); Lymphocyte % 29.4 %; Mean Corpuscular HGB Conc 34 g/dL (31-36); Mean Corpuscular Hemoglobin 33 pg (27-31); Mean Corpuscular Volume 96 fL (80-94); Mean Platelet Volume 7.5 fL (7.4-10.4); Platelet Count 222 10^3/uL (150-450); Red Blood Count 4.47 10^6 /uL (4.18-5.48); Red Cell Distribution Width 14 % (10-15)
[2019-06-06 03:50] LABS: INR 1.26 (0.82-1.09)
[2019-06-06 04:00] LABS: Albumin 4.2 g/dL (3.2-5.2); Albumin/Globulin Ratio 1.7 (1-3); BUN/Creatinine Ratio 17.6 (8-20); Calcium 9.5 mg/dL (8.6-10.3); EGFR African American 85.2 (>60); EGFR Non-African American 70.5 (>60); Globulin 2.5 g/dL (2-4); Potassium 3.8 mmol/L (3.5-5.0); Total Bilirubin 0.6 mg/dL (0.2-1.0); Total Protein 6.7 g/dL (6.4-8.9)
--- OUTSIDE RECORDS SUMMARY | 2019-06-06 04:00 | XMS REPORT | Continuity of Care Document ---
:1940 External Reference #:[id number] Author Name Singh Lo M.D. 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 Onset: 07/04/2011 Coronary arteriosclerosis Singh Lo M.D. Onset: 09/25/2012 Arteriosclerosis of arterial coronary Singh Lo M.D. Onset: 2012 artery bypass graft Palpitations Singh Lo M.D. Onset: 02/15/2014 Malaise and fatigue Singh Lo M.D. Onset: 02/15/2014 Spinal stenosis of lumbar region Singh Lo M.D. Onset: 02/15/2014 Benign essential hypertension Singh Lo M.D. Onset: 06/28/2014 Atrial fibrillation Singh Lo M.D. Onset: 06/28/2014 Atherosclerosis of artery Singh Lo M.D. Onset: 06/28/2014 Essential hypertension Singh Lo M.D. Onset: 01/25/2016 Obstructive sleep apnea syndrome Taylor Monae DNP, RN, Onset: 07/08/2016 [facility] Insomnia Taylor Monae DNP RN, Onset: 07/08/2016 [facility] Social History Type Date Description Comments Sex Unknown Tobacco Use Start: Unknown Never Smoked Cigarettes Smoking Status Reviewed: 01/26/19 Never Smoked Cigarettes ETOH Use Denies alcohol use Tobacco Use Start: Unknown Patient has never smoked Recreational Drug Use Denies Drug Use Exercise Type/Frequency Does not exercise Allergies, Adverse Reactions, Alerts Active Allergies Reaction Severity Comments Date Lipitor pravacol/lipitor assoc 03/24/2003 myalgias pravachol. myalgias 03/24/2003 Niaspan flushing 04/25/2008 Crestor fatigue on 2.5 mg daily 10/06/2013 Chocolate Sneezing 08/19/2016 Strawberries Urticaria 08/19/2016 Medications Active Medications SIG Qnty Indications Ordering Date Provider Praluent 1 injection sc 2ml E78.00 Singh Priest 11/13/2018 75mg/ml every 2 weeks (not Aditi Lo Solution Pen-Inject started yet 01/01/19) Potassium Chloride 1 by mouth every 90tabs I48.0 Singh Priest 10/29/2018 ER day Aditi Lo 20Meq Tablets ER Dilt-XR 1 by mouth every 90caps I48.0 Singh Priest 10/29/2018 120mg Caps ER day Aditi Lo 24HR Co-Enzyme Q-10 1 by mouth every 60caps Singh Priest 07/29/2017 200mg day Aditi Lo Capsules Lovaza take 1capsules Unknown 04/10/2016 1gm Capsules twice a day Warfarin Sodium take as directed 100tabs Singh Priest 06/28/2014 5mg 06/28/14 (current Aditi Lo Tablets regime 7.5/7.5/5 mg and repeat) managed by Dr. Zapien Aspirin Ec 1 tab po daily I48.0 Singh Priest 03/08/[address] Vitamin D 1 capsule by mouth Singh Priest 08/06/2013 2000Unit twice daily Aditi Lo Capsules Nitrostat one sl q5min up to 25tabs Leanne Florence, 04/22/2005 0.4mg 3 doses as needed N.P. Tablets Sub Cpap for use while Unknown Device sleeping Zolpidem Tartrate 1 at at bedtime Unknown 5mg prn Tablets Medications Administered in Office Medication SIG Qnty Indications Ordering Provider Date Inj, Regadenoson, 0.1 MG Octavio Newman M.D. 05/28/2018 Injection Technetium TC 99M Octavio Newman M.D. 05/28/2018 Tetrofosmin, Per Unit Dose Up To 40 Millicuries Injection Inj, Regadenoson, 0.1 MG Octavio Newman M.D. 03/25/2016 Injection Inj, Regadenoson, 0.1 MG Singh Lo M.D. 03/25/2016 Injection Technetium TC 99M Octavio Newman M.D. 03/25/2016 Tetrofosmin, Per Unit Dose Up To 40 Millicuries Injection Technetium TC 99M Singh Lo M.D. 03/25/2016 Tetrofosmin, Per Unit Dose Up To 40 Millicuries Injection Technetium TC 99M Jr Jean M.D., 03/23/2015 Tetrofosmin, Per Unit Dose [facility], FASIN Up To 40 Millicuries Injection Immunizations CPT Code Status Date Vaccine Lot # [id number] Given 06/10/2016 Influenza Virus Vaccine, Quadrivalent, Split, Preservative Free Vital Signs Date Vital Result Comment 01/26/2019 10:09am Height 70 inches 5'10" Weight 178.25 lb with shoes Heart Rate 64 /min BP Systolic Sitting 128 mmHg BP Diastolic Sitting 82 mmHg BP Systolic Standing 128 mmHg BP Diastolic Standing 80 mmHg BMI (Body Mass Index) 25.6 kg/m2 Ejection Fraction 60-65% 11/26/18 Echo 01/01/2019 10:23am Height 70 inches 5'10" Weight 180.00 lb Heart Rate 60 /min BP Systolic Sitting 132 mmHg Rue reg cuff BP Diastolic Sitting 84 mmHg Rue reg cuff Respiratory Rate 24 /min O2 % BldC Oximetry 94 % On Ra BMI (Body Mass Index) 25.8 kg/m2 Results Test Date Facility Test Result H/L Range Note Laboratory test [facility] Poc Activated 243 seconds 1 finding [address] [place] [address] [phone] Laboratory test [facility] Poc Activated 235 seconds [address] [place] [address] [phone] Laboratory test [facility] Poc Activated 219 seconds [address] [place] [address] [phone] Inr/Protime [facility] Inr 1.30 High 0.82-1.[address] [place] [address] [phone] Laboratory test [facility] Hemoglobin A1c 6.5 % High 4.0-5.6 [address] (Glyco HGB) [place] [address] [phone] Lipid Profile [facility] Triglycerides 181 mg/dL 6 (Trig/Chol/HDL) [address] [place] [address] [phone] Cholesterol 113 mg/dL 7 HDL Cholesterol 33.7 mg/dL 8 LDL Cholesterol 43 mg/dL 9 Comp Metabolic 05/04/2019 [facility] Sodium 140 mmol/L Normal 135-[address] [place] [address] [phone] Potassium 4.6 mmol/L Normal 3.5-5.0 Chloride 105 mmol/L Normal 101-111 Co2 Carbon Dioxide 30 mmol/L Normal 22-32 Anion Gap 5 mmol/L Normal 2-11 Glucose 118 mg/dL High 70-100 Blood Urea Nitrogen 13 mg/dL Normal 6-24 Creatinine 0.98 mg/dL Normal 0.67-1.17 BUN/Creatinine Ratio 13.3 Normal 8-20 Calcium 9.0 mg/dL Normal 8.6-10.3 Total Protein 6.3 g/dL Low 6.4-8.9 Albumin 4.3 g/dL Normal 3.2-5.2 Globulin 2.0 g/dL Normal 2-4 Albumin/Globulin Ratio 2.2 Normal 1-3 Total Bilirubin 0.70 mg/dL Normal 0.2-1.0 Alkaline Phosphatase 55 U/L Normal 34-104 Alt 13 U/L Normal 7-52 Ast 15 U/L Normal 13-39 Egfr Non- 73.8 >60 Egfr 89.3 >60 10 Lipid Panel 05/04/2019 [facility] Creatine 34 U/L Normal 10- 223 - JFM [address] Kinase(CK) [place] [address] [phone] Inr/Protime 05/04/2019 [facility] Inr 3.09 High 0.82-1.[address] [place] [address] [phone] CBC Auto 05/04/2019 [facility] White Blood 7.3 Normal 3.5- 10.[address] Count 10^3/[place] [address] [phone] Red Blood Count 4.46 10^6/uL Normal 4.18-5.48 Hemoglobin 14.6 g/dL Normal 14.0-18.0 Hematocrit 43 % Normal 42-52 Mean Corpuscular Volume 95 fL High 80-94 Mean Corpuscular Hemoglobin 33 pg High 27-31 Mean Corpuscular HGB Conc 34 g/dL Normal 31-36 Red Cell Distribution Width 14 % Normal 10-15 Platelet Count 205 10^3/uL Normal 150-450 Mean Platelet Volume 7.8 fL Normal 7.4-10.4 Abs Neutrophils 4.7 10^3/uL Normal 1.5-7.7 Abs Lymphocytes 2.0 10^3/uL Normal 1.0-4.8 Abs Monocytes 0.6 10^3/uL Normal 0-0.8 Abs Eosinophils 0.1 10^3/uL Normal 0-0.6 Abs Basophils 0.0 10^3/uL Normal 0-0.2 Abs Nucleated RBC 0.0 10^3/uL Granulocyte % 63.5 % Lymphocyte % 26.8 % Monocyte % 7.7 % Eosinophil % 1.4 % Basophil % 0.6 % Nucleated Red Blood Cells % 0.1 Cath Panel 05/04/2019 [facility] Partial 44.1 High 26.0-38.[address] [address] Time PTT [phone] Laboratory 05/04/2019 [facility] Partial 44.1 High 26.0-38.0 test finding [address] [address] Time PTT [phone] Inr/Protime 05/04/2019 [facility] Inr 3.09 High 0.82-1.[address] [place], [place] [id number] [phone] Laboratory 05/04/2019 [facility] TSH <pending> test finding [address] ([place] [address] Stim Horm) [phone] CBC Auto Diff 05/04/2019 [facility] White Blood 7.3 10^3/uL Normal 3.5-10.8 [address] [place] [address] [phone] Red Blood Count 4.46 10^6/uL Normal 4.18-5.48 Hemoglobin 14.6 g/dL Normal 14.0-18.0 Hematocrit 43 % Normal 42-52 Mean Corpuscular Volume 95 fL High 80-94 Mean Corpuscular Hemoglobin 33 pg High 27-31 Mean Corpuscular HGB Conc 34 g/dL Normal 31-36 Red Cell Distribution Width 14 % Normal 10-15 Platelet Count 205 10^3/uL Normal 150-450 Mean Platelet Volume 7.8 fL Normal 7.4-10.4 Abs Neutrophils 4.7 10^3/uL Normal 1.5-7.7 Abs Lymphocytes 2.0 10^3/uL Normal 1.0-4.8 Abs Monocytes 0.6 10^3/uL Normal 0-0.8 Abs Eosinophils 0.1 10^3/uL Normal 0-0.6 Abs Basophils 0.0 10^3/uL Normal 0-0.2 Abs Nucleated RBC 0.0 10^3/uL Granulocyte % 63.5 % Lymphocyte % 26.8 % Monocyte % 7.7 % Eosinophil % 1.4 % Basophil % 0.6 % Nucleated Red Blood Cells % 0.1 Laboratory test 05/04/2019 [facility] Creatine 34 U/L Normal 10-[address] Kinase(CK) [place], [place] [id number] [phone] Lipid Profile 05/04/2019 [facility] Triglycerides 181 13 (Trig/Chol/HDL) [address] DR[address] mg/[place] [address] [phone] Cholesterol 113 mg/dL 14 HDL Cholesterol 33.7 mg/dL 15 LDL Cholesterol 43 mg/dL 16 Comp Metabolic 05/04/2019 [facility] Sodium 140 mmol/L Normal 135-[address] [place] [address] [phone] Potassium 4.6 mmol/L Normal 3.5-5.0 Chloride 105 mmol/L Normal 101-111 Co2 Carbon Dioxide 30 mmol/L Normal 22-32 Anion Gap 5 mmol/L Normal 2-11 Glucose 118 mg/dL High 70-100 Blood Urea Nitrogen 13 mg/dL Normal 6-24 Creatinine 0.98 mg/dL Normal 0.67-1.17 BUN/Creatinine Ratio 13.3 Normal 8-20 Calcium 9.0 mg/dL Normal 8.6-10.3 Total Protein 6.3 g/dL Low 6.4-8.9 Albumin 4.3 g/dL Normal 3.2-5.2 Globulin 2.0 g/dL Normal 2-4 Albumin/Globulin Ratio 2.2 Normal 1-3 Total Bilirubin 0.70 mg/dL Normal 0.2-1.0 Alkaline Phosphatase 55 U/L Normal 34-104 Alt 13 U/L Normal 7-52 Ast 15 U/L Normal 13-39 Egfr Non- 73.8 >60 Egfr 89.3 >60 17 1 Stock Car Driver: [id number] Reference Range: 74-125 seconds 2 Stock Car Driver: [id number] Reference Range: 74-125 seconds 3 Stock Car Driver: [id number] Reference Range: 74-125 seconds 4 Standard intensity warfarin therapeutic range: 2.0-3.0 High intensity warfarin therapeutic range: 2.5-3.5 5 Therapeutic target for the treatment of diabetes mellitus patients is <7% HBA1C, and in selective patients <6.0%. Please refer to [place] [employer] Association diabetic care guidelines for further information. 6 Desirable: <150 Borderline High: 150-199 High: 200-499 Very High: >500 7 Desirable: <200 Borderline High: 200-239 High: >239 8 Low: <40 Desirable: 40-60 High: >60 9 Desirable: <100 Near Optimal: 100-129 Borderline High: 130-159 High: 160-189 Very High: >189 10 Because ethnic data is not always readily available, this report includes an eGFR for both -Americans and non- Americans. The National Kidney Disease Education Program (NKDEP) does not endorse the use of the MDRD equation for patients that are not between the ages of 18 and 70, are , have extremes of body size, muscle mass, or nutritional status, or are non- or non-. According to the National Kidney Foundation, irrespective of diagnosis, the stage of the disease is based on the level of kidney function: Stage Description GFR(mL/min/1.73 m(2)) 1 Kidney damage with normal or decreased GFR 90 2 Kidney damage with mild decrease in GFR 60-89 3 Moderate decrease in GFR 30-59 4 Severe decrease in GFR 15-29 5 Kidney failure <15 (or dialysis) 11 Standard intensity warfarin therapeutic range: 2.0-3.0 High intensity warfarin therapeutic range: 2.5-3.5 12 Standard intensity warfarin therapeutic range: 2.0-3.0 High intensity warfarin therapeutic range: 2.5-3.5 13 Desirable: <150 Borderline High: 150-199 High: 200-499 Very High: >500 14 Desirable: <200 Borderline High: 200-239 High: >239 15 Low: <40 Desirable: 40-60 High: >60 16 Desirable: <100 Near Optimal: 100-129 Borderline High: 130-159 High: 160-189 Very High: >189 17 Because ethnic data is not always readily available, this report includes an eGFR for both -Americans and non- Americans. The National Kidney Disease Education Program (NKDEP) does not endorse the use of the MDRD equation for patients that are not between the ages of 18 and 70, are , have extremes of body size, muscle mass, or nutritional status, or are non- or non-. According to the National Kidney Foundation, irrespective of diagnosis, the stage of the disease is based on the level of kidney function: Stage Description GFR(mL/min/1.73 m(2)) 1 Kidney damage with normal or decreased GFR 90 2 Kidney damage with mild decrease in GFR 60-89 3 Moderate decrease in GFR 30-59 4 Severe decrease in GFR 15-29 5 Kidney failure <15 (or dialysis) Procedures Date Code Description Status 01/26/2019 10491 EKG Tracing & Interpretation Completed 11/26/2018 72400 ECHO Stress Test Incl Perf Contiuous ekg Monitoring W/Phys Completed Superv 11/25/2018 11170 Holter Monitor Review (24 hr)dr review & interp only Completed 11/19/2018 84993 ECG Monitor/Recording W/Visual Superimposition Scanning Completed Medical Devices Description No Information Available Encounters Type Date Location Provider Dx Diagnosis Office Visit 01/26/2019 [facility] Singh Priest I48.0 Paroxysmal atrial 10:20a Aditi Lo fibrillation I10 Essential (primary) hypertension E78.00 Pure hypercholesterolemia, unspecified I25.10 Athscl heart disease of [place] coronary artery w/o ang pctrs I49.5 Sick sinus syndrome R53.83 Other fatigue Office Visit 01/01/2019 [facility] G47.33 Obstructive sleep 10:45a [facility] Monae, RN, apnea (adult) [facility] (pediatric) R35.1 Nocturia G47.01 Insomnia due to medical condition Office Visit 11/13/2018 2:00p [facility] Leanne Mcintyre I25.10 [facility] N.[facility]. disease of [place] coronary artery w/o ang pctrs I48.0 Paroxysmal atrial fibrillation I10 Essential (primary) hypertension E78.00 Pure hypercholesterolemia, unspecified I49.5 Sick sinus syndrome R53.83 Other fatigue Assessments Date Code Description Provider 01/26/2019 I48.0 Paroxysmal atrial fibrillation Singh Lo M.D. 01/26/2019 I10 Essential (primary) hypertension Singh Lo M.D. 01/26/2019 E78.00 Pure hypercholesterolemia, Singh Lo M.D. unspecified 01/26/2019 I25.10 Atherosclerotic heart disease of Singh Lo M.D. [place] coronary artery with 01/26/2019 I49.5 Sick sinus syndrome Singh Lo M.D. 01/26/2019 R53.83 Other fatigue Singh Lo M.D. 01/01/2019 G47.33 Obstructive sleep apnea (adult) Taylor Monae DNP, RN, (pediatric) [facility] 01/01/2019 R35.1 Nocturia Taylor Monae DNP, RN, [facility] 01/01/2019 G47.01 Insomnia due to medical condition Taylor Monae DNP, RN , [facility] 11/26/2018 I48.0 Paroxysmal atrial fibrillation Singh Lo M.D. 11/26/2018 I10 Essential (primary) hypertension Singh Lo M.D. 11/26/2018 E78.00 Pure hypercholesterolemia, Singh Lo M.D. unspecified 11/26/2018 I25.10 Atherosclerotic heart disease of Singh Lo M.D. [place] coronary artery with 11/25/2018 I48.0 Paroxysmal atrial fibrillation Singh Lo M.D. 11/19/2018 I48.0 Paroxysmal atrial fibrillation Nurse Visit IC 11/13/2018 I25.10 Atherosclerotic heart disease of Leanne Florence, N.PTanesha [place] coronary artery with 11/13/2018 I48.0 Paroxysmal atrial fibrillation Leanne Florence, N.P. 11/13/2018 I10 Essential (primary) hypertension Leanne Florence, N.P. 11/13/2018 E78.00 Pure hypercholesterolemia, Leanne Florence, N.P. unspecified 11/13/2018 I49.5 Sick sinus syndrome Leanne Florence, N.P. 11/13/2018 R53.83 Other fatigue Leanne Florence, N.P. Plan of Treatment Future Appointment(s):05/12/2019 3:00 pm - Juarez Mccarty M.D., [facility], [facility] at [facility]05/24/2019 9:30 am - Leanne Florence, N.P. at [facility]07/02/2019 9:30 am - Taylor Monae DNP, RN, [employer] at [facility]01/26/2019 - Singh Lo M.D.I48.0 Paroxysmal atrial fibrillationNew Orders:EKG, Ordered: 01/26/19I10 Essential ( primary) wozqysseabtvG95.00 Pure hypercholesterolemia, zftzjruazsnJ70.10 Atherosclerotic heart disease of [place] coronary artery withNew Orders:EKG, Ordered: 01/26/19Follow up:ov 4 mI49.5 Sick sinus vhalhbzgD14.83 Other fatigue Functional Status Description No Information Available Mental Status Description No Information Available Referrals Description No Information Available
--- OUTSIDE RECORDS SUMMARY | 2019-06-06 04:00 | XMS REPORT | Continuity of Care Document ---
:1940 External Reference #:[id number] Author Name Sendy Campuzano O.D. Address [address] [place] [address] Care Team Providers Name Role Phone Primitivo Zapien M.D. - Internal Care Team Information High Worker Medicine Rc Campbell M.D. - Urology Care Team Information High Worker [phone] Singh Lo MD - Cardiovascular Care Team Information High Worker Disease Problems Active Problems Provider Date Allergy Onset: Carcinoma of prostate Onset: Removal of gallbladder Onset: Essential hypertension Onset: Atrial fibrillation Onset: Cervical nerve root compression Onset: Pure hypercholesterolemia Onset: Ocular hypertension Austen Dawn M.D. Onset: 03/30/2015 Nuclear senile cataract Austen Dawn M.D. Onset: 03/30/2015 Combined form of senile cataract Austen Dawn M.D. Onset: 09/29/2015 Type 2 diabetes mellitus Austen Dawn M.D. 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 Onset: eyes Narrow angle of anterior chamber of right eye Austen Dawn M.D. Onset: Hearing loss Onset: Presence of intraocular lens Austen Dawn M.D. Onset: 04/22/2019 Social History Type Date Description Comments Sex Unknown ETOH Use Occasionally consumes wine Tobacco Use Start: Unknown Patient has never smoked Recreational Drug Use Denies Drug Use Smoking Status Reviewed: 05/14/19 Patient has never smoked Allergies, Adverse Reactions, Alerts Active Allergies Reaction Severity Comments Date Lipitor muscle pain 03/30/2015 Pravachol muscle pain 03/30/2015 Niaspan muscle pain 03/30/2015 Statins muscle pain 03/30/2015 Strawberries 04/06/2018 Medications Active Medications SIG Qnty Indications Ordering Provider Date Artificial Tears Austen Dawn, 04/21/2019 1-0.3% M.D. Solution Simbrinza 1 drop both eyes 24ml H40.053 Austen Dawn, 04/08/2019 1-0.2% twice a day M.D. Suspension Dilt-XR Unknown 120mg Caps ER 24HR Warfarin Sodium Unknown 5mg Tablets Zolpidem Tartrate Shallish, Primitivo M.D. 5mg Tablets Vitamin D 1 by mouth twice Unknown (Cholecalciferol) a day 1000Unit Tablets Lovaza 1 tab by mouth Unknown 1gm Capsules twice a day Nitrostat Unknown 0.4mg Tablets Sub Aspirin Ec 1 daily Unknown 81mg Tablets Singh Mckinney, 75mg/ml Solution Pen-Inject History Medications Ciprofloxacin HCL 1 drop right eye 5ml Austen Dawn, 04/12/2019 - 0.3% thee times a day M.D. 05/13/2019 Solution Ketorolac Tromethamine 1 drop both eyes 10ml Austen Dawn, 04/12/2019 - 0.5% three times a M.D. 05/13/2019 Solution day Prednisolone Acetate 1 drop both eyes 10ml Austen Dawn, 04/12/2019 - 1% three times a M.D. 05/13/2019 Suspension day Immunizations Description No Information Available Vital Signs Date Vital Result Comment 11/12/2016 2:52pm BP Systolic 152 mmHg BP Diastolic 78 mmHg Heart Rate 66 /min Respiratory Rate 12 /min 10/22/2016 3:13pm BP Systolic 145 mmHg BP Diastolic 77 mmHg Heart Rate 66 /min Respiratory Rate 12 /min Results Test Date Facility Test Result H/L Range Note Laboratory test 04/28/2019 [facility] 124 mg/dL High 70-100 [address] [place] [address] [phone] Laboratory test 04/21/2019 [facility] 134 mg/dL High 70-100 [address] [place] [address] [phone] [employer] Curtain Machine Tender: [id number] 2 [employer] Curt[employer] Machine Tender: [id number] Procedures Date Code Description Status 04/28/2019 31496 Extracapsular Cataract Extraction W/Intraocular Lens Completed 04/21/2019 49722 Extracapsular Cataract Extraction W/Intraocular Lens Completed 04/12/2019 59296 Ophthalmic Biometry Completed 04/12/2019 46742 Ophthalmic Biometry Completed 04/12/2019 08579 Est Patient Intermediate Exam Completed 04/08/2019 43687 Est Patient Comprehensive Exam Completed Medical Devices Description No Information Available Encounters Description No Information Available Assessments Date Code Description Provider 05/14/2019 Z96.1 Presence of intraocular lens Sendy Campuzano O.D. 04/29/2019 Z96.1 Presence of intraocular lens Austen Dawn M.D. 04/29/2019 H40.053 Ocular hypertension, bilateral Austen Dawn M.D. 04/28/2019 H25.811 Combined forms of age-related cataract, Austen Dawn M.D. right eye 04/22/2019 H25.811 Combined forms of age-related cataract, Austen Dawn M.D. right eye 04/22/2019 H40.053 Ocular hypertension, bilateral Austen Dawn M.D. 04/22/2019 Z96.1 Presence of intraocular lens Austen Dawn M.D. 04/21/2019 H25.812 Combined forms of age-related cataract, left Austen Dawn M.D. eye 04/12/2019 H25.812 Combined forms of age-related cataract, left Austen Dawn M.D. eye 04/12/2019 H40.053 Ocular hypertension, bilateral Austen Dawn M.D. 04/12/2019 H25.811 Combined forms of age-related cataract, Austen Dawn M.D. right eye 04/08/2019 H25.813 Combined forms of age-related cataract, Austen Dawn M.D. bilateral 04/08/2019 H40.033 Anatomical narrow angle, bilateral Austen Dawn M.D. 04/08/2019 H40.053 Ocular hypertension, bilateral Austen Dawn M.D. Plan of Treatment Future Appointment(s):08/03/2019 10:30 am - Austen Dawn M.D. at Austen Dawn MD, 05/14/2019 - Sendy Campuzano O.D.Z96.1 Presence of intraocular lensComments:Smoking can increase the risk of developing or worsening any eye related disease, as well as affect your overall health. If you are a smoker, we strongly recommend that you quit.If you are not a smoker, we strongly recommend that you do not start. Your lens implant looks stable in both eyes at this time. You should be done, or almost done with your drops at this time according to your surgical calendar. I have given you a prescription for glasses. If you have any questions, please feel free to call our office at [phone].Follow up:as scheduled Functional Status Description No Information Available Mental Status Description No Information Available Referrals Description No Information Available
--- OUTSIDE RECORDS SUMMARY | 2019-06-06 04:00 | XMS REPORT | Continuity of Care Document ---
:1940 External Reference #:[id number] Author Name Leanne Florence N.P. (transmitted by agent of provider Jeana Mcfadden) Address [facility] 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 Brilinta 1 tab by mouth 90tabs Juarez Mccarty, 05/11/2019 90mg Tablets twice a day Aditi, [facility], [facility] Praluent 1 injection sc 2ml E78.00 Singh [...] 200mg day Aditi Lo Capsules Lovaza take 1 capsule Unknown 04/10/2016 1gm Capsules twice a day Aspirin Ec 1 tab po daily I48.0 [...] Jean M.D., 03/23/2015 Tetrofosmin, Per Unit Dose FACC, FASNC Up To 40 Millicuries Injection Immunizations CPT Code Status Date Vaccine Lot # 62546 Given 06/10/2016 Influenza Virus Vaccine, Quadrivalent, Split, Preservative Free Vital Signs Date Vital Result Comment 05/24/2019 9:18am Height 70 inches 5'10" Weight 173.38 lb with shoes Heart Rate 74 /min radial, regular BP Systolic Sitting 138 mmHg Ra, reg cuff BP Diastolic Sitting 76 mmHg Ra, reg cuff BP Systolic Standing 120 mmHg Ra, reg cuff BP Diastolic Standing 76 mmHg Ra, reg cuff BMI (Body Mass Index) 24.9 kg/m2 Ejection Fraction 60%-65% echo 07/12/18 05/12/2019 3:28pm Height 70 inches 5'10" Weight 174.38 lb With shoes Heart Rate 76 /min radial BP Systolic Sitting 128 mmHg Lue reg cuff BP Diastolic Sitting 82 mmHg Lue reg cuff BP Systolic Standing 130 mmHg Lue reg cuff BP Diastolic Standing 86 mmHg Lue reg cuff BMI (Body Mass Index) 25.0 kg/m2 Ejection Fraction 60-65% ECHO 07/12/18 Results Test Date Facility Test Result H/L Range Note Laboratory test [facility] Activated 243 seconds 1 finding [address] Clotting Time [place], [place] [id number] [phone] Laboratory test [facility] Activated 235 seconds 2 finding [address] Clotting Time [place], [place] [id number] [phone] Laboratory test [facility] Activated 219 seconds 3 finding [address] [place] [address] [phone] Inr/Protime [facility] Inr 1.30 High 0.82-1.09 [address] [place] [address] [phone] Laboratory test [facility] Hemoglobin A1c 6.5 % High 4.0-5.6 5 finding [address] (Glyco HGB) [place], [place] [id number] [phone] Cath Panel [facility] Partial Thrombo 44.1 seconds High 26.0-38.[address] [place] [address] [phone] CBC Auto Diff [facility] White Blood 7.3 10^3/uL Normal 3.5-10.[address] [place] [address] [phone] Red Blood Count 4.46 10^6/uL Normal 4.18-5.48 [...] % Nucleated Red Blood Cells % 0.1 Inr/Protime 05/04/2019 [facility] Inr 3.09 High 0.82-1.[address] [place] [address] [phone] Lipid Panel - 05/04/2019 [facility] Creatine 34 U/L Normal 10- [address] Kinase(CK) [place] [address] [phone] Comp Metabolic 05/04/2019 [facility] Sodium 140 Normal 135- [address] mmol/[place] [address] [phone] Potassium 4.6 mmol/L Normal 3.5-5.0 Chloride 105 [...] Egfr Non- 73.8 >60 Egfr 89.3 >60 7 Lipid Profile 05/04/2019 [facility] Triglycerides 181 mg/dL 8 (Trig/Chol/HDL) [address] [place] [address] [phone] Cholesterol 113 mg/dL 9 HDL Cholesterol 33.7 mg/dL 10 LDL Cholesterol 43 mg/dL 11 1 Personal Banking Advisor: [id number] Reference Range: 74-125 seconds 2 Personal Banking Advisor: [id number] Reference Range: 74-125 seconds 3 Personal Banking Advisor: [id number] Reference Range: 74-125 seconds 4 Standard intensity warfarin therapeutic range: 2.0-3.0 High intensity warfarin therapeutic range: 2.5-3.5 5 Therapeutic target for the treatment of diabetes mellitus patients is <7% HBA1C, and in selective patients <6.0%. Please refer to [place] Diabetes Association diabetic care guidelines for further information. 6 Standard intensity warfarin therapeutic range: 2.0-3.0 High intensity warfarin therapeutic range: 2.5-3.5 7 Because ethnic data is not always readily [...] 15-29 5 Kidney failure <15 (or dialysis) 8 Desirable: <150 Borderline High: 150-199 High: 200-499 Very High: >500 9 Desirable: <200 Borderline High: 200-239 High: >239 10 Low: <40 Desirable: 40-60 High: >60 11 Desirable: <100 Near Optimal: 100-129 Borderline High: 130-159 High: 160-189 Very High: >189 Procedures Date Code Description Status 05/12/2019 26627 EKG Tracing & Interpretation Completed 01/26/2019 85870 EKG Tracing & Interpretation Completed 11/26/2018 77938 ECHO Stress Test Incl Perf Contiuous ekg Monitoring W/Phys Completed Superv 11/25/2018 58302 Holter Monitor Review (24 hr)dr flores & maru only Completed Medical Devices Description No Information Available Encounters Type Date Location Provider Dx Diagnosis Office Visit 05/12/2019 [facility] Juarez Mccarty, Z48.812 Encntr for 3:40p Of Dynamics Ax Technical Architect AT [facility] Aditi, [facility], surgical aftcr FSCAI following surgery on the circ sys 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 Office Visit 01/26/2019 10:20a [facility] Singh Priest I48.0 Paroxysmal atrial Aditi Lo fibrillation I10 Essential (primary) hypertension E78.00 Pure hypercholesterolemia, unspecified I25.10 Athscl heart disease of [place] coronary artery w/o ang pctrs I49.5 Sick sinus syndrome R53.83 Other fatigue Office Visit 01/01/2019 [facility] G47.33 Obstructive sleep 10:45a [facility] Monae, RN, apnea (adult) [facility] ROR ENGINEER-BC (pediatric) R35.1 Nocturia 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 [place] coronary artery with 05/24/2019 I10 Essential (primary) hypertension Leanne S. Naman, N.P. 05/24/2019 E78.00 Pure hypercholesterolemia, Leanne Florence, N.P. unspecified 05/24/2019 I49.5 Sick sinus syndrome Leanne STanesha Florence, N.P. 05/24/2019 I48.0 Paroxysmal atrial fibrillation Leanne STanesha Florence, N.P. 05/12/2019 Z48.812 Encounter for surgical aftercare Juarez Mccarty M.D., [facility] , [facility] following surgery on the circulatory system 05/12/2019 I25.10 Atherosclerotic heart disease of Juarez Mccarty M.D., [facility], [facility] [place] coronary artery with 05/12/2019 Z95.1 Presence of aortocoronary bypass Juarez Mccarty M.D., [facility], [facility] graft 01/26/2019 I48.0 Paroxysmal atrial fibrillation Singh Lo M.D. 01/26/2019 I10 Essential (primary) hypertension Singh Lo M.D. 01/26/2019 E78.00 Pure hypercholesterolemia, Singh Lo M.D. unspecified 01/26/2019 I25.10 Atherosclerotic heart disease of Singh Lo M.D. [place] coronary artery with 01/26/2019 I49.5 Sick sinus syndrome Singh Lo M.D. 01/26/2019 R53.83 Other fatigue Singh Lo M.D. 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 11/26/2018 I10 Essential (primary) hypertension Singh Lo M.D. 11/26/2018 E78.00 Pure hypercholesterolemia, Singh Lo M.D. unspecified 11/26/2018 I25.10 Atherosclerotic heart disease of Singh Lo M.D. [place] coronary artery with 11/25/2018 I48.0 Paroxysmal atrial fibrillation Singh Lo M.D. Plan of Treatment Future Appointment(s):08/25/2019 11:40 am - Singh Lo M.D. at [facility]07/02/2019 9:30 am - Taylor Monae DNP, RN, [facility] at [facility]05/24/2019 - Leanne Florence, N.P.I25.10 Atherosclerotic heart disease of [place] coronary artery withNew Therapy:Cardiac RehabFollow up:3mo OV JFMRecommendations:Try to have diet soda or coffee in your chair to see if that helps At the end of May stop ASA. Continue brilinta and eliquis.I10 Essential (primary) peqkhatdaykuK28.00 Pure hypercholesterolemia, vkfrymppokjC62.5 Sick sinus cmebkbhbM54.0 Paroxysmal atrial fibrillationNew Medication:Eliquis 5 mg - 1 by mouth twice a dayRecommendations:Once you cook pickled meat eliquis call our office. Plan: Stop warfarin 2-3 days later have INR check at [facility] When INR < 2.0 start eliquis. Functional Status Description No Information Available Mental Status Description No Information Available Referrals Description No Information Available
--- OUTSIDE RECORDS SUMMARY | 2019-06-06 04:00 | XMS REPORT | Continuity of Care Document ---
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 Encounter for planned postprocedural Juarez Mccarty M.D., [facility], Onset: 2018 wound closure [facility] Social History Type Date Description Comments Sex Unknown Tobacco Use Start: Unknown Never Smoked Cigarettes Smoking Status Reviewed: 05/12/19 Never Smoked Cigarettes ETOH Use Denies alcohol [...] Medications SIG Qnty Indications Ordering Date Provider Brilinta 1 tab by mouth 90tabs Juarez Mccarty, 05/11/2019 90mg Tablets twice a day Aditi, [facility], [facility] Praluent 1 injection sc 2ml E78.00 Singh [...] Jean M.D., 03/23/2015 Tetrofosmin, Per Unit Dose [facility], [place] Up To 40 Millicuries Injection Immunizations CPT Code Status Date Vaccine Lot # [id number] Given 06/10/2016 Influenza Virus Vaccine, Quadrivalent, Split, Preservative Free Vital Signs Date Vital Result Comment 05/12/2019 3:28pm Height 70 inches 5'10" Weight 174.38 lb With shoes Heart Rate 76 /min radial BP Systolic Sitting 128 mmHg Lue reg cuff BP Diastolic Sitting 82 mmHg Lue reg cuff BP Systolic Standing 130 mmHg Lue reg cuff BP Diastolic Standing 86 mmHg Lue reg cuff BMI (Body Mass Index) 25.0 kg/m2 Ejection Fraction 60-65% ECHO 07/12/18 01/26/2019 10:09am Height 70 inches 5'10" Weight 178.25 lb with shoes Heart Rate 64 /min BP Systolic Sitting 128 mmHg BP Diastolic Sitting 82 mmHg BP Systolic Standing 128 mmHg BP Diastolic Standing 80 mmHg BMI (Body Mass Index) 25.6 kg/m2 Ejection Fraction 60-65% 11/26/18 Echo Results Test Date Facility Test Result H/L Range Note Laboratory test [facility] Activated 243 seconds 1 finding [address] [address] [phone] Laboratory test [facility] Activated 235 seconds 2 finding [address] [address] [phone] Laboratory test [facility] Activated 219 seconds 3 finding [address] [address] [phone] Inr/Protime [facility] Inr 1.30 High 0.82-1.09 [address] [place], [place] [address] [phone] Laboratory test [facility] Hemoglobin A1c 6.5 % High 4.0-5.6 5 finding [address] (Glyco HGB) [place], [place] [address] [phone] Cath Panel [facility] Partial Thrombo 44.1 seconds High 26.0-38.[address] [place] [address] [phone] CBC Auto Diff [facility] White Blood 7.3 10^3/uL Normal 3.5-10.[address] [place] [address] [phone] Red Blood Count 4.46 10^6/uL Normal 4.18-5.48 [...] Red Blood Cells % 0.1 Inr/Protime 05/04/2019 [facility] Inr 3.09 High 0.82-1.[address] [place] [address] [phone] Lipid Panel - 05/04/2019 [facility] Creatine 34 U/L Normal 10- [address] Kinase(CK) [place] [address] [phone] Comp Metabolic 05/04/2019 [facility] Sodium 140 Normal 135- [address] mmol/[place] [address] [phone] Potassium 4.6 mmol/L Normal 3.5-5.0 Chloride 105 [...] Egfr 89.3 >60 7 Lipid Profile 05/04/2019 [facility] Triglycerides 181 mg/dL 8 (Trig/Chol/HDL) [address] [place] [address] [phone] Cholesterol 113 mg/dL 9 HDL Cholesterol 33.7 mg/dL 10 LDL Cholesterol 43 mg/dL 11 1 Jail Guard: [id number] Reference Range: 74-125 seconds 2 Jail Guard: [id number] Reference Range: 74-125 seconds 3 Jail Guard: [id number] Reference Range: 74-125 seconds 4 Standard intensity warfarin therapeutic range: 2.0-3.0 High intensity warfarin therapeutic range: 2.5-3.5 5 Therapeutic target for the treatment of diabetes mellitus patients is <7% HBA1C, and in selective patients <6.0%. Please refer to [place] Diabetes Association diabetic care guidelines for further [...] >189 Procedures Date Code Description Status 05/12/2019 95466 EKG Tracing & Interpretation Completed 01/26/2019 87009 EKG Tracing & Interpretation Completed 11/26/2018 20047 ECHO Stress Test Incl Perf Contiuous ekg Monitoring W/Phys Completed Superv 11/25/2018 12067 Holter Monitor Review (24 hr)dr review & interp only Completed 11/19/2018 50109 ECG Monitor/Recording W/Visual Superimposition Scanning Completed Medical Devices Description No Information Available Encounters Type Date Location Provider Dx Diagnosis Office Visit 01/26/2019 [facility] Singh Priest I48.0 Paroxysmal atrial 10:20a Aditi Lo fibrillation I10 Essential (primary) hypertension E78.00 Pure hypercholesterolemia, unspecified I25.10 Athscl heart disease of [place] coronary artery w/o ang pctrs I49.5 Sick sinus syndrome R53.83 Other fatigue Office Visit 01/01/2019 [facility] G47.33 Obstructive sleep 10:45a [facility] Monae, RN, apnea (adult) [facility]- (pediatric) R35.1 Nocturia 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 Naman NAma disease of [place] coronary artery w/o ang pctrs I48.0 Paroxysmal atrial fibrillation I10 Essential (primary) hypertension E78.00 Pure hypercholesterolemia, unspecified I49.5 Sick sinus syndrome R53.83 Other fatigue Assessments Date Code Description Provider 05/12/2019 Z48.1 Encounter for planned postprocedural Juarez Mccarty M.D., [facility] wound closure 05/12/2019 I25.10 Atherosclerotic heart disease of Juarez Mccarty M.D., [facility], [facility] [place] coronary artery with 01/26/2019 I48.0 Paroxysmal atrial fibrillation Singh Lo M.D. 01/26/2019 I10 Essential (primary) hypertension Singh Lo M.D. 01/26/2019 E78.00 Pure hypercholesterolemia, Singh Lo M.D. unspecified 01/26/2019 I25.10 Atherosclerotic heart disease of Singh Lo M.D. [place] coronary artery with 01/26/2019 I49.5 Sick sinus syndrome Singh Lo M.D. 01/26/2019 R53.83 Other fatigue Singh Lo M.D. 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 11/26/2018 I10 Essential (primary) hypertension Singh Lo M.D. 11/26/2018 E78.00 Pure hypercholesterolemia, Singh Lo M.D. unspecified 11/26/2018 I25.10 Atherosclerotic heart disease of Singh Lo M.D. [place] coronary artery with 11/25/2018 I48.0 Paroxysmal atrial fibrillation Singh Lo M.D. 11/19/2018 I48.0 Paroxysmal atrial fibrillation Nurse Visit IC 11/13/2018 I25.10 Atherosclerotic heart disease of Leanne Florence, N.PTanesha [place] coronary artery with 11/13/2018 I48.0 Paroxysmal atrial fibrillation Leanne Florence, N.P. 11/13/2018 I10 Essential (primary) hypertension Leanne Florence, N.P. 11/13/2018 E78.00 Pure hypercholesterolemia, Leanne Florence, N.P. unspecified 11/13/2018 I49.5 Sick sinus syndrome Leanne Florence, N.P. 11/13/2018 R53.83 Other fatigue Leanne Florence, N.P. Plan of Treatment Future Appointment(s):05/24/2019 9:30 am - Leanne Florence, N.P. at [facility]07/02/2019 9:30 am - Taylor Monae DNP, RN, [facility] at [facility]05/12/2019 - Juarez Mccarty M.D., [facility], WFGPYY82.1 Encounter for planned postprocedural wound closureComments:Your catheterization site appears to be healing well.Recommendations:Continue current medications and Follow up with your primary compliance testing analyst. You will be seeing MARQUEZ Florence in follow up within the next 2 weeks.I25.10 Atherosclerotic heart disease of [place] coronary artery withComments:You currently do not have any significant symptoms of progressive coronary artery disease.Recommendations:Continue current medications and watch carefully for symptoms as we discussed Functional Status Description No Information Available Mental Status Description No Information Available Referrals Description No Information Available
--- OUTSIDE RECORDS SUMMARY | 2019-06-06 04:00 | XMS REPORT | Continuity of Care Document ---
:1940 External Reference #:[id number] Author Name Austen Salmon M.D. Address [address] [place] [address] Care Team Providers Name Role Phone Primitivo Zapien M.D. Primary Care Physician Unavailable Payers Date Identification Numbers Payment Provider Subscriber Effective: 2004 Policy Number: [id number] Medicare - [facility] Alexandr Mitchell Ronald PayID: [id number] [address] [place] [address] Policy Number: [id number] [place] Plan Alexandr Mitchell Ronald PayID: [id number] [address] [place] [address] Problems Active Problems Provider Date Allergy Onset: Carcinoma of prostate Onset: Removal of gallbladder Onset: Essential hypertension Onset: Atrial fibrillation Onset: Cervical nerve root compression Onset: Pure hypercholesterolemia Onset: Ocular hypertension Austen Salmon M.D. Onset: 03/30/2015 Nuclear senile cataract Austen Salmon M.D. Onset: 03/30/2015 Combined form of senile cataract Austen Salmon M.D. Onset: 09/29/2015 Type 2 diabetes mellitus Austen Salmon M.D. Onset: 04/01/2016 Bilateral narrow angle of anterior chamber of Austen Salmon M.D. Onset: eyes Narrow angle of anterior chamber of right eye Austen Salmon M.D. 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 Solution three times a day, start the day before surgery Ketorolac Tromethamine use one drop in 10ml Austen Salmon, 04/12/2019 0.5% the right eye M.D. Solution three times a day, start the day before surgery Prednisolone Acetate 1 drops right eye 10ml Austen Salmon, 04/12/2019 1% three times a M.D. Suspension day. taper as directed Simbrinza 1 drop both eyes 24ml H40.053 Austen Salmon, 04/08/2019 1-0.2% Suspension twice a day M.D. Aspirin Ec 1 daily Unknown [address] Nitrostat Unknown 0.4mg Tablets Sub Lovaza 1 tab by mouth Unknown 1gm Capsules twice a day Vitamin D 1 by mouth twice Unknown (Cholecalciferol) a day 1000Unit Tablets Zolpidem Tartrate Primitivo Zapien 5mg M.D. Tablets Warfarin Sodium Unknown 5mg Tablets Dilt-XR Unknown 120mg Caps ER 24HR History Medications [id number] Ethyl Esters Austen Salmon, 03/29/2015 - 03/29/2015 1gm M.D. Capsules Zetia Rupali Primitivo M.D. - 04/07/2019 10mg Tablets Aspirin Unknown - 03/29/2015 325mg Tablets Multivitamins Unknown - 03/29/2015 Capsules Crestor 1/5 tab qod Unknown - 04/07/2019 5mg Tablets Diltiazem HCL ER Coated Unknown - 04/07/2019 Beads 120mg Caps ER 24HR Flovent HFPrimitivo VelazquezTaneshaD. - 04/07/2019 44mcg/Act Aerosol Vital Signs Date Vital Result Comment 11/12/2016 2:52pm BP Systolic 152 mmHg BP Diastolic 78 mmHg Heart Rate 66 /min Respiratory Rate 12 /min 10/22/2016 3:13pm BP Systolic 145 mmHg BP Diastolic 77 mmHg Heart Rate 66 /min Respiratory Rate 12 /min 10/15/2016 2:25pm BP Systolic 130 mmHg BP Diastolic 82 mmHg Heart Rate 60 /min Respiratory Rate 14 /min Procedures Date Code Description Status 04/08/2019 54042 Est Patient Comprehensive Exam Completed 10/08/2018 70056 Est Patient Comprehensive Exam Completed 04/06/2018 85586 Est Patient Intermediate Exam Completed 10/06/2017 96597 Est Patient Intermediate Exam Completed 04/03/2017 54877 Est Patient Comprehensive Exam Completed 11/12/2016 67143 Iridotomy/Iredectomy By Laser Surgery Completed 10/15/2016 86585 Iridotomy/Iredectomy By Laser Surgery Completed 10/03/2016 82666 Est Patient Intermediate Exam Completed 04/01/2016 60541 Est Patient Comprehensive Exam Completed 04/01/2016 47280 Visual Field Exam Extended Completed 04/01/2016 95431 Scanning Computerized Ophthalmic Diagnostic Imag Posterior Completed Seg On 09/29/2015 13771 Est Patient Intermediate Exam Completed 03/30/2015 49096 Fundus Photography With Interpretation And Report Completed 03/30/2015 09526 Visual Field Exam Extended Completed 03/30/2015 32294 Est Patient Comprehensive Exam Completed 09/30/2014 65498 Gonioscopy Completed 09/30/2014 71198 Est Patient Intermediate Exam Completed 04/28/2014 14090 Est Patient Intermediate Exam Completed 04/28/2014 42953 Visual Field Exam Extended Completed 03/28/2014 25205 Scanning Computerized Ophthalmic Diagnostic Imag Posterior Completed Seg On 03/28/2014 25734 Est Patient Comprehensive Exam Completed 03/28/2014 97995 Pachymetry Completed 03/26/2013 24716 Determination Of Refractive State Completed 03/26/2013 12911 Est Patient Comprehensive Exam Completed 03/27/2012 13240 Est Patient Comprehensive Exam Completed 03/26/2011 93257 Fundus Photography With Interpretation And Report Completed 03/26/2011 09356 Est Patient Comprehensive Exam Completed 12/29/2009 85214 Est Patient Comprehensive Exam Completed 12/29/2009 76712 Scanning Laser W/Interp And Report Completed 12/21/200892385 Est Patient Comprehensive Exam Completed 12/18/2007 00775 Determination Of Refractive State Completed 12/18/2007 41054 Est Patient Comprehensive Exam Completed 12/18/2006 01561 Determination Of Refractive State Completed 12/18/2006 60032 Est Patient Comprehensive Exam Completed 12/12/200583944 Est Patient Comprehensive Exam Completed 12/06/2004 23277 Determination Of Refractive State Completed 12/06/2004 78326 Est Patient Comprehensive Exam Completed Encounters Type Date Location Provider Dx Diagnosis Office Visit 12/30/2016 Austen Salmon, Austen Salmon, H40.033 Anatomical narrow 10:15a , [place], bilateral H40.052 Ocular hypertension, left eye H25.813 Combined forms of age-related cataract, bilateral Office Visit 05/25/2008 2:15p Austen Salazar, 373.00 Blepharitis Rob Salmon MD, pc [facility] Plan of Treatment Future Appointment(s):05/14/2019 11:30 am - Sendy Campuzano O.D. at [facility], 04/29/2019 10:30 am - Austen Salmon M.D. at [facility], 04/22/2019 11:30 am - Austen Salmon M.D. at [facility], 2018 7:00 am - Austen Salmon M.D. at [facility], 04/21/2019 7:00 am - Austen Salmon M.D. at [facility], 04/12/2019 - Austen Salmon M.D.H25.812 Combined forms of age-related cataract, left eyeComments:Smoking can increase the risk of developing or worsening any eye related disease, as well as affect your overall health. If you are a smoker, we strongly recommend that you quit.If you are not a smoker, we strongly recommend that you do not start. Dense cataract in the left eye.Follow up:For surgery. Please keep post op appointments as scheduled.H40.053 Ocular hypertension, [id number] Combined forms of age-related cataract, right eyeComments:CONTINUE THE SIMBRINZA TWICE A DAY IN BOTH EYES UNTIL DR. SALMON TELLS YOU OTHERWISE
--- OUTSIDE RECORDS SUMMARY | 2019-06-06 04:00 | XMS REPORT | Continuity of Care Document ---
:1940 External Reference #:[id number] Author Name Primitivo Zapien M.D. Address [address] [place] [address] Care Team Providers Name Role Phone Singh Lo MD - Cardiovascular Care Team Information [facility] Disease [facility] - Sleep Disorder Care Team Information Top Closer Diagnostic Rc Yadav - Urology Care Team Information Top Closer [phone] [facility] [place] Assistant Care Team Information Top Closer - Health Educator Lenore White - Cardiovascular Care Team Information Top Closer Disease Problems Active Problems Provider Date Coronary arteriosclerosis Primitivo Zapien M.D. Onset: 09/30/2005 Hyperlipidemia Primitivo Zapien M.D. Onset: 09/30/2005 History of malignant neoplasm of prostate Primitivo Zapien M.D. Onset: 02/03 Benign essential hypertension Primitivo Zapien M.D. Onset: 02/03/2006 Malaise and fatigue Primitivo Zapien M.D. Onset: 12/01/2006 Spinal stenosis of lumbar region Primitivo Zapien M.D. Onset: 2014 Obstructive sleep apnea syndrome Primitivo Zapien M.D. Onset: 2014 Paroxysmal atrial fibrillation Gerhard Lees M.D. Onset: 11/04/2016 Abnormal glucose level Primitivo Zapien M.D. Onset: 10/17/2017 Other insomnia Primitivo Zapien M.D. Onset: 04/13/2018 Encounter for other preprocedural Primitivo Zapien M.D. Onset: 04/10/2019 examination Mixed hyperlipidemia Primitivo Zapien M.D. Onset: 04/10/2019 Combined form of senile cataract Primitivo Zapien M.D. Onset: 04/10/2019 Acute bronchitis Primitivo Zapien M.D. Onset: 10/26/2018 Type 2 diabetes mellitus Primitivo Zapien M.D. Onset: 10/26/2018 Social History Type Date Description Comments Sex Unknown Tobacco Use Start: Unknown Never Smoked Cigarettes Smoking Status Reviewed: 03/02/19 Never Smoked Cigarettes Tobacco Use Start: Unknown nonsmoker Allergies, Adverse Reactions, Alerts Active Allergies Reaction Severity Comments Date Lortab Urinary Retention 06/03/2005 Lipitor Muscle Pain 07/29/2005 Pravachol Muscle Pain 07/29/2005 Strawberries Hives 07/21/2009 Statins 12/14/2010 Rosuvastatin lost feeling in legs 02/19/2019 Chocolate 02/19/2019 Medications Active Medications SIG Qnty Indications Ordering Date Provider Onetouch Delica test fasting 100units Primitivo FTanesha 10/28/2018 Lancets Extra Fine blood sugar qd or Aditi Zapien 33G as directed - Dx: Misc E11.9 - last seen 10/26/18 Onetouch Ultra Blue test 1 time 100units Primitivo FTanesha 09/10/2016 daily- dx:e11.9 - Aditi Zapien Strips last seen 10/26/18 Zolpidem Tartrate 1-2 by mouth 60tabs Primitivo F. 06/15/2015 5mg every night at Aditi Zapien Tablets bedtime as needed Vitamin D3 1 po bid Primitivo FTanesha 10/11/2014 Tablets Aditi Zapien Nitrostat 1 sl as needed, 25tabs Primitivo FTanesha 08/05/2014 0.4mg repeat every 5 Aditi Zapien Tablets Sub minutes up to three tabs, call 911 Aspirin 1 by mouth every 90tabs Primitivo FTanesha 06/30/2014 81mg Tablets day Aditi Zapien Lovaza take 2 capsules 360caps Primitivo FTanesha 12/18/2009 1gm Capsules twice a day Aditi Zapien Co Q-10 100mg 1 po qam Primitivo F. Capsules Aditi Zapien Potassium Chloride 1 by mouth every Primitivo F. ER day Aditi Zapien 20Meq Tablets ER Praluent inject 1 @ 2 Primitivo F. 75mg/ml weeks Aditi Zapien Solution Pen-Inject Diltiazem XR 1 po bid Primitivo F. Aditi Zapien Brilinta 1 by mouth twice Primitivo F. 90mg Tablets a day Aditi Zapien Eliquis take one tablet Primitivo F. 5mg Tablets by mouth twice a Aditi Zapien day History Medications Gabapentin 1 by mouth three 60caps Primitivo F. Rupali, 02/19/2019 - 100mg times a day M.DTanesha 04/10/2019 Capsules Immunizations CPT Code Status Date Vaccine Lot # [id number] Given 05/29/2019 High-Dose, Influenza Virus Vacccine-fluzone 65 [id number] and older 35645 Given 10/02/2018 Zoster (Shingles) Vaccine (HZV), Recombinant, Subunit, Adjuvanted 99190 Given 06/15/2018 Zoster (Shingles) Vaccine (HZV), Recombinant, Subunit, Adjuvanted 87436 Given 05/25/2018 High-Dose, Influenza Virus Vacccine-fluzone 65 [id number] and older 35973 Given 06/05/2017 High-Dose, Influenza Virus Vacccine-fluzone 65 [id number] and older 59887 Given 05/27/2016 High-Dose, Influenza Virus Vacccine-fluzone 65 and older 21855 Given 05/27/2016 High-Dose, Influenza Virus Vacccine-fluzone 65 [id number] and older 93457 Given 06/24/2015 Influenza Vac, Quadrivalent, Slit Virus, Im [id number] 61271 Given 02/07/2015 Pneumococcal Conjugate Vacc-13 [id number] 07828 Given 06/18/2014 High-Dose, Influenza Virus Vacccine-fluzone 65 [id number] and older Q2038 Given 06/19/2013 Split Influenza Medicare: Fluzone [id number] 66231 Given 06/05/2012 High-Dose, Influenza Virus Vacccine-fluzone 65 [id number] and older 45293 Given 04/16/2012 Zostivax [id number] 63003 Given 04/16/2012 Tdap Tetanus, W Pertussis [id number] 44709 Given 06/22/2011 High-Dose, Influenza Virus Vacccine-fluzone 65 [id number] and older 47368 Given 06/08/2010 DO Not Use Split Influenza Virus Vaccine [id number] 45646 Given 08/16/2009 DO Not Use Split Influenza Virus Vaccine [id number] 27023 Given 06/25/2008 DO Not Use Split Influenza Virus Vaccine [id number] 85713 Given 07/25/2007 DO Not Use Split Influenza Virus Vaccine [id number] 83280 Given 07/26/2006 DO Not Use Split Influenza Virus Vaccine [id number] 16120 Given 06/27/2005 DO Not Use Split Influenza Virus Vaccine 71668 Given 06/20/2003 Pneumococcal Immunization 55027 Given 06/20/2003 Pneumococcal Immunization 82488 Given 06/08/2003 DO Not Use Split Influenza Virus Vaccine 63248 Given 06/08/2003 DO Not Use Split Influenza Virus Vaccine 51997 Given 07/09/2002 DO Not Use Split Influenza Virus Vaccine 09432 Given 08/28/2001 Influenza Immunization 98216 Given 08/28/2001 DO Not Use Split Influenza Virus Vaccine 67398 Given 07/14/2000 DO Not Use Split Influenza Virus Vaccine 49188 Given 07/11/1999 DO Not Use Split Influenza Virus Vaccine 67417 Given 07/17/1998 Influenza Immunization 67044 Given 04/13/1997 Td Immunization, For Use In Individuals 7 Years Or Older Vital Signs Date Vital Result Comment 05/29/2019 12:00pm BP Systolic 110 mmHg BP Diastolic 60 mmHg Heart Rate 56 /min Body Temperature 97.7 F Respiratory Rate 16 /min Height 69.25 inches 5'9.25" Weight 173.12 lb BMI (Body Mass Index) 25.4 kg/m2 04/10/2019 10:23am BP Systolic 120 mmHg BP Diastolic 76 mmHg Heart Rate 64 /min Body Temperature 98.4 F Respiratory Rate 16 /min Height 69.25 inches 5'9.25" Weight 175.00 lb BMI (Body Mass Index) 25.7 kg/m2 Results Test Date Facility Test Result H/L Range Note Laboratory test [facility] Inr (Fma) 1.3 Low 2.0-3.0 finding 9 (607)- - Laboratory test [facility] (Fma) 2.4 2.0-3.0 finding 9 (607)- - Laboratory test [facility] [place] Activated 243 seconds 1 finding 9 Clotting Time Laboratory test [facility] Activated 235 seconds 2 finding 9 Clotting Time Laboratory test [facility] Activated 219 seconds 3 finding 9 Clotting Time Inr/Protime [facility] [place] 1.30 High 0.82-1.09 4 9 Laboratory test [facility] Hemoglobin A1c 6.5 % High 4.0-5.6 5 finding 9 (Glyco HGB) CBC Auto Diff [facility] White Blood 7.3 10^3/uL Normal 3.5-10.8 9 Count Red Blood Count 4.46 10^6/uL Normal 4.18-5.48 [...] % Nucleated Red Blood Cells % 0.1 Comp Metabolic Panel 05/04/2019 [facility] Sodium 140 mmol/L Normal 135-145 Potassium 4.6 mmol/L Normal 3.5-5.0 Chloride 105 [...] Egfr Non- 73.8 >60 Egfr 89.3 >60 6 Lipid Profile (Trig/Chol/HDL) 05/04/2019 [facility] Triglycerides 181 mg/dL 7 Cholesterol 113 mg/dL 8 HDL Cholesterol 33.7 mg/dL 9 LDL Cholesterol 43 mg/dL 10 Laboratory test 05/04/2019 [facility] Creatine 34 U/L Normal 10-223 finding Kinase(CK) Inr/Protime 05/04/2019 [facility] In[place] 3.09 High 0.82-1.09 11 Laboratory test 05/04/2019 [facility] Partial Thrombo 44.1 High 26.0-38.0 finding Time PTT seconds Laboratory test 04/28/2019 [facility] Point of Care 124 mg/dL High 70-100 12 finding Glucose Laboratory test 04/22/2019 [facility] ([facility]ma) 2.4 2.0-3.0 finding (607)- - Laboratory test 04/21/2019 [facility] Point of Care 134 mg/dL High 70-100 13 finding Glucose Lipid Profile 04/10/2019 [facility]) Cholesterol 117 mg/dL Low 120-200 14 Triglycerides 166 mg/dL 30-200 HDL Cholesterol 34 mg/dL 30-70 LDL (Calculated) 50 CALC 0-129 VLDL Cholesterol 33 mg/dL 0-50 HDL Risk Factor 3.4 CALC 0.0-4.4 Laboratory test finding 04/10/2019 [facility]) TSH 2.52 mIU/L 0.50-6.00 CK 49 U/L 38-174 Laboratory test 03/22/2019 [facility] (Fma) 2.2 2.0-3.0 finding (607)- - Ict-Hemoccult 02/26/2019 [facility] Ict Hemoccult (1) 02/20/19 Neg. (MCR)Fma Screeni (607)- - Ict Hemoccult-(2) 02/22/16 Neg. Ict-Hemoccult (3) 02/22/19 Neg. Laboratory test 02/19/2019 [facility] Hemoglobin A1c 6.2 % High 4.1- 5.7 finding (607)- - (Fma) Inr (Fma) 2.1 2.0-3.0 Comprehensive Metabolic 02/19/2019 [facility]) Sodium 142 mEq/L 134-149 Prof Potassium 4.9 mEq/L 3.6-5.5 Chloride 103 mEq/L 94-112 Carbon Dioxide 27 mEq/L 21-32 Glucose 109 mg/dL High 70-105 BUN 18 mg/dL 6-26 Creatinine 1.0 mg/dL 0.6-1.4 BUN/Creat Ratio 18.0 CALC 8.0-36.0 Calcium 9.5 mg/dL 8.6-10.2 Total Protein 6.8 g/dL 6.4-8.3 Albumin 4.6 g/dL 3.8-5.5 Globulin 2.2 g/dL 2.0-4.8 A/G Ratio 2.1 CALC 0.6-2.3 Alk. Phosphatase 52 U/L 22-95 Alt (SGPT) 16 U/L 7-35 Ast (Sgot) 17 U/L 5-34 Total Bilirubin 0.5 mg/dL 0.2-1.3 GFR Non- >60 ml/min/1.73m^ >=60 GFR >60 ml/min/1.73m^ >=60 Laboratory test 02/19/2019 [facility]) Free T4 0.88 ng/dL 0.75- 1.54 finding TSH 2.14 mIU/L 0.50-6.00 CBC Electronic Fma 02/19/2019 [facility]) WBC 6.7 x10^3/UL 4.0- 10.0 RBC 4.48 x10^6/UL 3.93-6.00 HGB 14.4 g/dL 12.0-17.0 HCT 43 % 35-50 MCV 95.8 fL High 80.0-95.0 MCH 32.1 pg 25.6-32.2 MCHC 33.6 g/dL 32.2-36.0 RDW-CV 13.0 % 11.6-14.4 PLT 194 x10^3/UL 163-400 MPV 9.5 fL 9.4-12.4 Constance# 3.90 x10^3/UL 1.56-6.13 Lymph# 2.13 x10^3/UL 1.18-3.74 [place]# 0.57 x10^3/UL 0.24-0.82 Eos # 0.1 x10^3/UL 0.0-0.5 Baso # 0.04 x10^3/UL 0.01-0.08 Constance% 58.0 % 34.0-70.0 Lymph % 31.6 % 20.0-52.0 [place]% 8.5 % 5.0-12.0 Eos% 1.0 % 0.7-7.0 Baso% 0.6 % 0.1-1.2 Lyme Disease AB Immunoblot WB 02/19/2019 [facility] IgG Immunoblot Negative Negative 15 IgG detected against p23 kDa IgM Immunoblot Negative Negative IgM detected against None kDa Lyme Disease Interpretation See Comment 16 Laboratory test 01/20/2019 [facility] ([facility]ma) 2.3 2.0-3.0 finding (607)- - Laboratory test 12/17/2018 [facility] (Fma) 1.9 Low 2-3 finding (607)- - Laboratory test 12/12/2018 [facility] PSA Screening < 0.008 Normal 0-4.0 17 finding ng/mL Laboratory test 12/04/2018 [facility] Surgical SEE RESULT 18, 19 finding Pathology BELOW 1 Supervisory Clerk: [id number] Reference Range: 74-125 seconds 2 Supervisory Clerk: [id number] Reference Range: 74-125 seconds 3 Supervisory Clerk: [id number] Reference Range: 74-125 seconds 4 Standard intensity warfarin therapeutic range: 2.0-3.0 High intensity warfarin therapeutic range: 2.5-3.5 5 Therapeutic target for the treatment of diabetes mellitus patients is <7% HBA1C, and in selective patients <6.0%. Please refer to [employer] diabetic care guidelines for further information. 6 Because ethnic data is not always readily [...] 15-29 5 Kidney failure <15 (or dialysis) 7 Desirable: <150 Borderline High: 150-199 High: 200-499 Very High: >500 8 Desirable: <200 Borderline High: 200-239 High: >239 9 Low: <40 Desirable: 40-60 High: >60 10 Desirable: <100 Near Optimal: 100-129 Borderline High: 130-159 High: 160-189 Very High: >189 11 Standard intensity warfarin therapeutic range: 2.0-3.0 High intensity warfarin therapeutic range: 2.5-3.5 12 Supervisory Clerk: [id number] Supervisory Clerk: [id number] RESULTS VERIFIED BY REPEAT ANALYSIS 15 1 sst 16 Specific serologic response to B. burgdorferi infection is not detected, but cannot rule out early infection during which low or undetectable antibody levels to B. burgdorferi may be present. If clinically indicated, a new serum specimen should be submitted in 7-14 days. ADDITIONAL INFORMATION Per CDC criteria, the Lyme IgG Immunoblot is interpreted as positive if IgG-class antibodies are detected to >=5 B. burgdorferi proteins, and the Lyme IgM Immunoblot is interpreted as positive if IgM-class antibodies are detected to >=2 B. burgdorferi proteins. Immunoblot patterns not meeting these criteria should not be interpreted as positive. Epitopes from certain B. burgdorferi proteins (e.g., p41) are conserved across other bacteria, which may lead to the detection of IgM- and/or IgG-class antibodies on the Lyme disease immunoblots in patients without Lyme disease. Immunoblot should only be ordered on specimens that are positive or equivocal by a FDA-licensed Lyme disease antibody screening test (e.g., EIA). Results of the Lyme IgM immunoblot should not be considered in patients with >= 30 days of symptoms. Test Performed by: [facility] [address] [place] [address] 17 Serum levels of PSA measured using the Elie Diogo DXI Hybritech immunoassay should not be interpreted as absolute evidence of the presence or absence of disease. The PSA value should be used in conjunction with other pertinent clinical diagnostic procedures. A PSA value in the range of 0.1 to 0.6 ng/ml is indeterminate if being used as an indicator of recurrent or residual disease. The values obtained with different assay methods or kits cannot be used interchangeably. 18 2759-A:Morphology: erythematous papule with hyperkeratotic scale;DDX: Squamous Cell Carcinoma;Loc 19 SEE RESULT BELOW Name: ALEXANDR MITTAL : [address]: Zonia Jennings MD Acct: [id number] Unit: [id number] AGE: 78 Location: [facility] Re12/04/18 SEX: M Status: REG REF SPEC: [id number] [place]: 12/04/18-[address] [facility] [address]: Zonia Jennings MD REQ: [id number] RECD: 12/04/18-6 STATUS: PROSPER SEPULVEDA DR: Primitivo Zapien MD _ ORDERED: LEVEL 4 COMMENTS: [id number] FINAL DIAGNOSIS Skin, left lower cheek, biopsy: -- Hypertrophic actinic keratosis. PRE-OPERATIVE DIAGNOSIS Erythematous papule with hyperkeratotic scale; squamous cell carcinoma GROSS DESCRIPTION The specimen is received in formalin labeled, Left Lower Cheek, and consists of a 0.5 x 0.5 cm watters-gutierrez ovoid skin shave with a central 0.2 x 0.2 x 0.1 cm watters-gutierrez scaly to keratotic papule. The specimen is inked, bisected and submitted entirely in one cassette. Signed by and Reported on: Ena Mendoza MD 12/07/18 1010 END OF REPORT DEPARTMENT OF PATHOLOGY, [address] [place] [address] Quintin Rosales M.D. Director [facility] # [id number] Procedures Date Code Description Status 05/24/2019 48223 Finger Or Heel Stick Completed 04/22/2019 01125 Finger Or Heel Stick Completed 03/22/2019 40323 Finger Or Heel Stick Completed 01/20/2019 85239 Finger Or Heel Stick Completed 12/17/2018 08623 Finger Or Heel Stick Completed 06/21/2016 [id number] Colonoscopy Completed 12/09/2007 [id number] Colonoscopy Completed Medical Devices Description No Information Available Encounters Type Date Location Provider Dx Diagnosis Office Visit 04/10/2019 [facility] Office Primitivo Priest I48.0 Paroxysmal atrial 10:20a Aditi Zapien fibrillation I25.10 Athscl heart disease of [place] coronary artery w/o ang pctrs R53.83 Other fatigue E78.49 Other hyperlipidemia H25.89 Other age-related cataract Z01.818 Encounter for other preprocedural examination Office Visit 03/02/2019 [facility] Demetria Smith S70.361A Insect bite 9:45a Office WALTER Ward (nonvenomous), right thigh, initial encounter W57.xxxA Bit/stung by nonvenom insect & oth nonvenom arthropods, init Office Visit 02/19/2019 10:20a [facility] Office Primitivo Priest I25.10 Athscl heart Aditi Zapien disease of [place] coronary artery w/o ang pctrs E11.9 Type 2 diabetes mellitus without complications I48.0 Paroxysmal atrial fibrillation R53.83 Other fatigue Z12.11 Encounter for screening for malignant neoplasm of colon Assessments Date Code Description Provider 05/29/2019 Z23 Encounter for immunization Primitivo Zapien M.D. 05/29/2019 I25.10 Atherosclerotic heart disease of [place] Primitivo Zapien M.D. coronary artery with 05/29/2019 I48.0 Paroxysmal atrial fibrillation Primitivo Zapien M.D. 05/29/2019 R53.83 Other fatigue Primitivo Zapien M.D. 05/29/2019 G47.09 Other insomnia Primitivo Zapien M.D. 05/29/2019 R73.09 Other abnormal glucose Primitivo Zapien M.D. 05/29/2019 E78.49 Other hyperlipidemia Primitivo Zapien M.D. 05/29/2019 Z85.46 Personal history of malignant neoplasm of Primitivo Zapien M.D. prostate 05/28/2019 Z79.01 halfway (current) use of anticoagulants Primitivo Zapien M.D. 05/28/2019 I48.0 Paroxysmal atrial fibrillation Primitivo Zapien M.D. 05/24/2019 Z79.01 order dispatcher (current) use of anticoagulants Primitivo Zapien M.D. 05/24/2019 I48.0 Paroxysmal atrial fibrillation Primitivo Zapien M.D. 04/22/2019 Z79.01 order dispatcher (current) use of anticoagulants Primitivo Zapien M.D. 04/22/2019 I48.0 Paroxysmal atrial fibrillation Primitivo Zapien M.D. 04/10/2019 I48.0 Paroxysmal atrial fibrillation Primitivo Zapien M.D. 04/10/2019 I25.10 Atherosclerotic heart disease of [place] Primitivo Zapien M.D. coronary artery with 04/10/2019 R53.83 Other fatigue Primitivo Zapien M.D. 04/10/2019 E78.49 Other hyperlipidemia Primitivo Zapien M.D. 04/10/2019 H25.89 Other age-related cataract Primitivo Zapien M.D. 04/10/2019 Z01.818 Encounter for other preprocedural Primitivo Zapien M.D. examination 03/22/2019 Z79.01 halfway (current) use of anticoagulants Primitivo Zapien M.D. 03/22/2019 I48.0 Paroxysmal atrial fibrillation Primitivo Zapien M.D. 03/02/2019 S70.361A Insect bite (nonvenomous), right thigh, WALTER Barnes initial encounter 03/02/2019 W57.xxxA Bitten or stung by nonvenomous insect and WALTER Barnes other nonvenomous arthropods, initial encounter 02/26/2019 Z12.11 Encounter for screening for malignant Primitivo Zapien M.D. neoplasm of colon 02/26/2019 Z12.12 Encounter for screening for malignant Primitivo Zapien M.D. neoplasm of rectum 02/19/2019 I25.10 Atherosclerotic heart disease of [place] Primitivo Zapien M.D. coronary artery with 02/19/2019 E11.9 Type 2 diabetes mellitus without Primitivo Zapien M.D. complications 02/19/2019 I48.0 Paroxysmal atrial fibrillation Primitivo Zapien M.D. 02/19/2019 R53.83 Other fatigue Primitivo Zapien M.D. 02/19/2019 Z12.11 Encounter for screening for malignant Primitivo Zapien M.D. neoplasm of colon 01/20/2019 Z79.01 order dispatcher (current) use of anticoagulants Primitivo Zapien M.D. 01/20/2019 I48.0 Paroxysmal atrial fibrillation Primitivo Zapien M.D. 12/17/2018 Z79.01 order dispatcher (current) use of anticoagulants Primitivo Zapien M.D. 12/17/2018 I48.0 Paroxysmal atrial fibrillation Primitivo Zapien M.D. Plan of Treatment Future Appointment(s):06/04/2019 10:15 am - Primitivo Zapien M.D. at [facility] [id number]/21/2019 10:30 am - Primitivo Zapien M.D. at [facility] [id number] 10:20 am - Primitivo Zapien M.D. at [facility] [id number]/29/2019 - Primitivo Zapien M.D.Z23 Encounter for immunizationFollow up:Followup:. (Follow up) I25.10 Atherosclerotic heart disease of [place] coronary artery withComments: stable now after recent stent insertion , continue follow up with Dr Lo , will stay on aspirin until end of May, on Brillinta now, he may be having some perceived symptoms of shortness of breath, ? med zjgfsgfnT61.0 Paroxysmal atrial fibrillationComments:stable on , diltiazem, aspirin , no recent episodes of atrial fibrillation since October 2018 ,he now is on Eliquis and warfarin has been hmvmoscsyoutB41.83 Other fatigueComments:continue prn dngveftxT81.09 Other insomniaComments:zolpidem kxvstzhhZ74.09 Other abnormal glucoseComments:has occasional mild glucose elevation, but he checks his glucometer periodically and glucose readings are usually < 150 and a1c is 6.5 so he will continue on dietary management , currently not on annjaplhqZ73.49 Other hyperlipidemiaComments:doing well , continue Praluent and YlftwfI83.46 Personal history of malignant neoplasm of prostateComments: Patient has followup with Dr. Yip:Medication Management Patient Understands medications he's taking? Yes No Are there Barriersto Adherence? Yes No Has the patient been asked about herbal supplements and therapies, and OTC meds? Yes NoFollow up:return to office 4 months Functional Status Description No Information Available Mental Status Description No Information Available Referrals Description No Information Available
--- OUTSIDE RECORDS SUMMARY | 2019-06-06 04:00 | XMS REPORT | Continuity of Care Document ---
:1940 External Reference #:[id number] Author Name Austen Salmon M.D. Address [address] [place] [address] Care Team Providers Name Role Phone Primitivo Zapien M.D. - Internal Care Team Information Corporate Development Associate Medicine Rc Campbell M.D. - Urology Care Team Information Corporate Development Associate [phone] Singh Lo MD - Cardiovascular Care Team Information Corporate Development Associate Disease Problems Active Problems Provider Date Allergy [...] Austen Salmon M.D. Onset: Hearing loss Onset: Presence of intraocular lens Austen Salmon M.D. Onset: 04/22/2019 Social History Type Date Description Comments Sex Unknown ETOH Use Occasionally consumes wine Tobacco Use Start: Unknown Patient has never smoked Recreational Drug Use Denies Drug Use Smoking Status Reviewed: 04/22/19 Patient has never smoked Allergies, Adverse Reactions, Alerts Active Allergies Reaction Severity Comments Date Lipitor muscle pain 03/30/2015 Pravachol muscle pain 03/30/2015 Niaspan muscle pain 03/30/2015 Statins muscle pain 03/30/2015 Strawberries 04/06/2018 Medications Active Medications SIG Qnty Indications Ordering Provider Date Artificial Tears Austen Salmon, 04/21/2019 1-0.3% M.D. Solution Ciprofloxacin HCL instill one drop 5ml Austen [...] 04/08/2019 1-0.2% Suspension twice a day M.D. Dilt-XR Unknown 120mg Caps ER 24HR Warfarin Sodium Unknown 5mg Tablets Zolpidem Tartrate Shallish, Primitivo 5mg M.D. Tablets Vitamin D 1 by mouth twice Unknown (Cholecalciferol) a day 1000Unit Tablets Lovaza 1 tab by mouth Unknown 1gm Capsules twice a day Nitrostat Unknown 0.4mg Tablets Sub Aspirin Ec 1 daily Unknown [address] Tablets [address] Immunizations Description No Information Available Vital Signs Date Vital Result Comment 11/12/2016 2:52pm BP Systolic 152 mmHg BP Diastolic 78 mmHg Heart Rate 66 /min Respiratory Rate 12 /min 10/22/2016 3:13pm BP Systolic 145 mmHg BP Diastolic 77 mmHg Heart Rate 66 /min Respiratory Rate 12 /min Results Test Date Facility Test Result H/L Range Note Laboratory test 04/21/2019 [facility] [place] Point [facility] Care 134 mg/dL High 70-[address] [place] [address] [phone] Roll Line Operator: [id number] Procedures Date Code Description Status 04/21/2019 73204 Extracapsular Cataract Extraction W/Intraocular Lens Completed 04/12/2019 50018 Ophthalmic Biometry Completed 04/12/2019 57044 Ophthalmic Biometry Completed 04/12/2019 93918 Est Patient Intermediate Exam Completed 04/08/2019 36391 Est Patient Comprehensive Exam Completed Medical Devices Description No Information Available Encounters Description No Information Available Assessments Date Code Description Provider 04/22/2019 H25.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 right eye 04/22/2019 H40.053 Ocular hypertension, bilateral Austen Salmon M.D. 04/22/2019 Z96.1 Presence of intraocular lens Austen Salmon M.D. 04/21/2019 H25.812 Combined forms of age-related cataract, left Austen Salmon M.D. eye 04/12/2019 H25.812 Combined forms of age-related cataract, left Austen Salmon M.D. eye 04/12/2019 H40.053 Ocular hypertension, bilateral Austen Salmon M.D. 04/12/2019 H25.811 Combined forms of age-related april, Austen Salmon M.D. right eye 04/08/2019 H25.813 Combined forms of age-related cataract, Austen Salmon M.D. 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 04/08/2019 H40.053 Ocular hypertension, bilateral Austen Salmon M.D. Plan of Treatment Future Appointment(s):05/14/2019 11:30 am - Sendy Campuzano O.D. at [facility], 04/29/2019 10:30 am - Austen Salmon M.D. at [facility], 04/28/2019 7:00 am - Austen Salmon M.D. at [facility], pc2018 - Austen Salmon M.D.H25.811 Combined forms of age-related cataract, right eyeComments:Smoking can increase the risk of developing or worsening any eye related disease, as well as affect your overall health. If you are a smoker , we strongly recommend that you quit.If you are not a smoker, we strongly recommend that you do not start. Dense cataract in the right eye. CONTINUE THE SIMBRINZA TWICE A DAY IN BOTH EYES UNTIL DR. SALMON TELLS YOU OTHERWISEFollow up:For surgery. Please keep post op appointments as scheduled.DFE/IOPH40.053 Ocular hypertension, rlatlquoyA09.1 Presence of intraocular lensComments:The artifical lens implant in your left eye appears to be stable. Since this is the first day aftersurgery, your left eye is still dilated and the vision will still be slightly blurry. The dilation will go down over the next day or two. Continue taking your eye drops as directed on the surgical calendar. If you have any questions, please call our office. Functional Status Description No Information Available Mental Status Description No Information Available Referrals Description No Information Available
--- OUTSIDE RECORDS SUMMARY | 2019-06-06 04:00 | XMS REPORT | Continuity of Care Document ---
:1940 External Reference #:[id number] Author Name Austen Dawn M.D. Address [address] [place] [address] Care Team Providers Name Role Phone Primitivo Zapien M.D. - Internal Care Team Information Ramp Manager Medicine Rc Campbell M.D. - Urology Care Team Information Ramp Manager [phone] Singh Lo MD - Cardiovascular Care Team Information Ramp Manager [phone] Disease Problems Active Problems Provider Date Allergy [...] Use Denies Drug Use Smoking Status Reviewed: 04/29/19 Patient has never smoked Allergies, Adverse Reactions, Alerts Active Allergies Reaction Severity Comments Date Lipitor muscle pain 03/30/2015 Pravachol muscle pain 03/30/2015 Niaspan muscle pain 03/30/2015 Statins muscle pain 03/30/2015 Strawberries 04/06/2018 Medications Active Medications SIG Qnty Indications Ordering Provider Date Artificial Tears Austen Dawn, 04/21/2019 1-0.3% M.D. Solution Ciprofloxacin HCL 1 drop right 5ml Austen Dawn, 04/12/2019 0.3% eye thee times M.D. Solution a day Ketorolac Tromethamine 1 drop both 10ml Austen Dawn, 04/12/2019 0.5% eyes three M.D. Solution times a day Prednisolone Acetate 1 drop both 10ml Austen Dawn, 04/12/2019 1% eyes three M.D. Suspension times a day Simbrinza 1 drop both 24ml H40.053 Austen Dawn, 04/08/2019 1-0.2% Suspension eyes twice a M.D. day Dilt-XR Unknown 120mg Caps ER 24HR Warfarin Sodium Unknown 5mg Tablets Zolpidem Tartrate Shallish, Primitivo 5mg Tablets M.D. Vitamin D 1 by mouth Unknown (Cholecalciferol) twice a day 1000Unit Tablets Lovaza 1 tab by mouth Unknown 1gm Capsules twice a day Nitrostat Unknown 0.4mg Tablets Sub Aspirin Ec 1 daily Unknown 81mg Tablets Immunizations Description No Information Available Vital Signs Date Vital Result Comment 11/12/2016 2:52pm BP Systolic 152 mmHg BP Diastolic 78 mmHg Heart Rate 66 /min Respiratory Rate 12 /min 10/22/2016 3:13pm BP Systolic 145 mmHg BP Diastolic 77 mmHg Heart Rate 66 /min Respiratory Rate 12 /min Results Test Date Facility Test Result H/L Range Note Laboratory test 04/28/2019 [facility] [place] Point [facility] Care 124 mg/dL High 70-100 [address] [place] [address] [phone] - Laboratory test 04/21/2019 [facility] [place] [facility] 134 mg/dL High 70-100 [address] [place], [place] [id number] [phone] Truck And Transport Mechanic: [id number] Truck And Transport Mechanic: [id number] Procedures Date Code Description Status 04/21/2019 36206 Extracapsular Cataract Extraction W/Intraocular Lens Completed 04/12/2019 28505 Ophthalmic Biometry Completed 04/12/2019 35072 Ophthalmic Biometry Completed 04/12/2019 20689 Est Patient Intermediate Exam Completed 04/08/2019 31765 Est Patient Comprehensive Exam Completed Medical Devices Description No Information Available Encounters Description No Information Available Assessments Date Code Description Provider 04/29/2019 Z96.1 Presence of intraocular lens Austen Dawn M.D. 04/29/2019 H40.053 Ocular hypertension, bilateral Austen Dawn M.D. 04/22/2019 H25.811 Combined forms of age-related cataract, [...] Austen Dawn M.D. Plan of Treatment Future Appointment(s):05/14/2019 11:30 am - Sendy Campuzano O.D. at [facility], pc04/29/2019 - Austen Dawn M.D.Z96.1 Presence of intraocular lensComments:Smoking can increase the risk of developing or worsening any eye related disease, as well as affect your overall health. If you are a smoker, we strongly recommend that you quit.If you are not a smoker, we strongly recommend that you do not start. The artifical lens implant in your right eye appearsto be stable. Since this is the first day after surgery, your right eye is still dilated and the vision will still be slightly blurry. The dilation will go down over the next day or two. Continue taking your eye drops as directed on the surgical calendar. If you have any questions, please call ouroffice.A56.113 Ocular hypertension, bilateralFollow up:3 Month Follow Up IOP Check RA At your next visit, we are not planning to dilate your eyes. However, if you have any changes in your vision or new symptoms, there are certain situations that require us to dilate your eyes. If Dr. Dawn requests any additional testing, that may require extra time. If you have any questions before your next appointment, please call our office at . Functional Status Description No Information Available Mental Status Description No Information Available Referrals Description No Information Available
--- OUTSIDE RECORDS SUMMARY | 2019-06-06 04:00 | XMS REPORT | Continuity of Care Document ---
:1940 External Reference #:[id number] Author Name Singh Lo M.D. (transmitted by agent of provider Farzana Jackson ) Address [address] [place] [id number] Care Team Providers Name Role Phone Primitivo Zapien MD - Family Medicine Care Team Information University Lecturer Problems Active Problems Provider Date Pure hypercholesterolemia Singh Lo M.D. Onset: 07/04/2011 Coronary arteriosclerosis Singh Lo M.D. Onset: 09/25/2012 Arteriosclerosis of arterial coronary Signh Lo M.D. Onset: 2012 artery bypass graft [...] syndrome Taylor Monae DNP, RN, Onset: 07/08/2016 [facility] Insomnia Taylor Monae DNP RN, Onset: 07/08/2016 [facility] Social History Type Date Description Comments [...] Jean M.D., 03/23/2015 Tetrofosmin, Per Unit Dose [facility], FASAL Up To 40 Millicuries Injection Immunizations CPT Code Status Date Vaccine Lot # [id number] Given 06/10/2016 Influenza Virus Vaccine, Quadrivalent, Split, [...] Test Result H/L Range Note Laboratory test [facility] Poc Activated 243 seconds 1 finding [address] [place] [address] [phone] Laboratory test [facility] Poc Activated 235 seconds [address] [place] [address] [phone] Laboratory test [facility] Poc Activated 219 seconds [address] [place] [address] [phone] Inr/Protime [facility] Inr 1.30 High 0.82-1.[address] [place] [address] [phone] Laboratory test [facility] Hemoglobin A1c 6.5 % High 4.0-5.[address] (Glyco HGB) [place] [address] [phone] Lipid Profile [facility] Triglycerides 181 mg/dL 6 (Trig/Chol/HDL) [address] [place] [address] [phone] Cholesterol 113 mg/dL 7 HDL Cholesterol 33.7 mg/dL 8 LDL Cholesterol 43 mg/dL 9 Comp Metabolic 05/04/2019 [facility] Sodium 140 mmol/L Normal 135-[address] [place] [address] [phone] Potassium 4.6 mmol/L Normal 3.5-5.0 Chloride 105 [...] Egfr 89.3 >60 10 Lipid Panel 05/04/2019 [facility] Creatine 34 U/L Normal 10- 223 - JFM [address] Kinase(CK) [place] [address] [phone] Inr/Protime 05/04/2019 [facility] Inr 3.09 High 0.82-1.[address] [place] [address] [phone] CBC Auto 05/04/2019 [facility] White Blood 7.3 Normal 3.5- 10.[address] Count 10^3/[place] [address] [phone] Red Blood Count 4.46 10^6/uL Normal 4.18-5.48 [...] Blood Cells % 0.1 Cath Panel 05/04/2019 [facility] Partial 44.1 High 26.0-38.[address] [place] [address] Time PTT [phone] Laboratory 05/04/2019 [facility] Partial 44.1 High 26.0-38.0 test finding [address] [place] [address] Time PTT [phone] Inr/Protime 05/04/2019 [facility] Inr 3.09 High 0.82-1.[address] [place], [place] [id number] [phone] Laboratory 05/04/2019 [facility] TSH <pending> test finding [address] ([place] [address] Stim Horm) [phone] CBC Auto Diff 05/04/2019 [facility] White Blood 7.3 10^3/uL Normal 3.5-10.8 [address] [place] [address] [phone] Red Blood Count 4.46 10^6/uL Normal 4.18-5.48 [...] Blood Cells % 0.1 Laboratory test 05/04/2019 [facility] Creatine 34 U/L Normal 10-[address] Kinase(CK) [place], [place] [id number] [phone] Lipid Profile 05/04/2019 [facility] Triglycerides 181 13 (Trig/Chol/HDL) [address] mg/[place] [address] [phone] Cholesterol 113 mg/dL 14 HDL Cholesterol 33.7 mg/dL 15 LDL Cholesterol 43 mg/dL 16 Comp Metabolic 05/04/2019 [facility] Sodium 140 mmol/L Normal 135-[address] [place] [address] [phone] Potassium 4.6 mmol/L Normal 3.5-5.0 Chloride 105 [...] 73.8 >60 Egfr 89.3 >60 17 1 Technical Support Technician: [id number] Reference Range: 74-125 seconds 2 Technical Support Technician: [id number] Reference Range: 74-125 seconds 3 Technical Support Technician: [id number] Reference Range: 74-125 seconds 4 Standard intensity warfarin therapeutic range: 2.0-3.0 High intensity warfarin therapeutic range: 2.5-3.5 5 Therapeutic target for the treatment of diabetes mellitus patients is <7% HBA1C, and in selective patients <6.0%. Please refer to [place] [employer] diabetic care guidelines for further [...] dialysis) Procedures Date Code Description Status 01/26/2019 48113 EKG Tracing & Interpretation Completed 11/26/2018 29146 ECHO Stress Test Incl Perf Contiuous ekg Monitoring W/Phys Completed Superv 11/25/2018 70741 Holter Monitor Review (24 hr)dr review & interp only Completed 11/19/2018 26063 ECG Monitor/Recording W/Visual Superimposition Scanning Completed Medical Devices Description No Information Available Encounters Type Date Location Provider Dx Diagnosis Office Visit 01/26/2019 [facility] Singh Priest I48.0 Paroxysmal atrial 10:20a Aditi Lo fibrillation I10 Essential (primary) hypertension E78.00 Pure hypercholesterolemia, unspecified I25.10 Athscl heart disease of [place] coronary artery w/o ang pctrs I49.5 Sick sinus syndrome R53.83 Other fatigue Office Visit 01/01/2019 [facility] G47.33 Obstructive sleep 10:45a [facility] Monae, RN, apnea (adult) [facility] (pediatric) R35.1 Nocturia G47.01 Insomnia due to medical condition Office Visit 11/13/2018 2:[facility] [facility] Leanne Mcintyre I25.10 [facility] Naman N.P. disease of [place] coronary artery w/o ang pctrs I48.0 Paroxysmal atrial fibrillation I10 Essential (primary) hypertension E78.00 Pure hypercholesterolemia, unspecified I49.5 Sick sinus syndrome R53.83 Other fatigue Assessments Date Code Description Provider 01/26/2019 I48.0 Paroxysmal atrial fibrillation Singh Lo M.D. 01/26/2019 I10 Essential (primary) hypertension Singh Lo M.D. 01/26/2019 E78.00 Pure hypercholesterolemia, Singh Lo M.D. unspecified 01/26/2019 I25.10 Atherosclerotic heart disease of Singh Lo M.D. [place] coronary artery with 01/26/2019 I49.5 Sick sinus syndrome Singh Lo M.D. 01/26/2019 R53.83 Other fatigue Singh Lo M.D. 01/01/2019 G47.33 Obstructive sleep apnea (adult) Taylor Monae DNP, RN, (pediatric) [facility] 01/01/2019 R35.1 Nocturia Taylor Monae DNP, RN, [facility] 01/01/2019 G47.01 Insomnia due to medical condition Taylor Monae DNP, RN , [facility] 11/26/2018 I48.0 Paroxysmal atrial fibrillation Singh Lo M.D. 11/26/2018 I10 Essential (primary) hypertension Singh Lo M.D. 11/26/2018 E78.00 Pure hypercholesterolemia, Singh Lo M.D. unspecified 11/26/2018 I25.10 Atherosclerotic heart disease of Singh Lo M.D. [place] coronary artery with 11/25/2018 I48.0 Paroxysmal atrial fibrillation Singh Lo M.D. 11/19/2018 I48.0 Paroxysmal atrial fibrillation Nurse Visit IC 11/13/2018 I25.10 Atherosclerotic heart disease of Leanne Florence, N.PTanesha [place] coronary artery with 11/13/2018 I48.0 Paroxysmal atrial fibrillation Leanne Florence, N.P. 11/13/2018 I10 Essential (primary) hypertension Leanne Florence, N.P. 11/13/2018 E78.00 Pure hypercholesterolemia, Leanne Florence, N.P. unspecified 11/13/2018 I49.5 Sick sinus syndrome Leanne Florence, N.P. 11/13/2018 R53.83 Other fatigue Leanne Florence, N.P. Plan of Treatment Future Appointment(s):05/12/2019 3:00 pm - Juarez Mccarty M.D., [facility] at [facility]05/24/2019 9:30 am - Leanne Florence, N.P. at [facility]07/02/2019 9:30 am - Taylor Monae DNP, RN, QUALITY ASSURANCE ADVISOR-BC at [facility]01/26/2019 - Singh Lo M.D.I48.0 Paroxysmal atrial fibrillationNew Orders:EKG, Ordered: 01/26/19I10 Essential ( primary) noesboqqhhmkX30.00 Pure hypercholesterolemia, bbjvwhrkommD69.10 Atherosclerotic heart disease of [place] coronary artery withNew Orders:EKG, Ordered: 01/26/19Follow up:ov 4 mI49.5 Sick sinus zzlzysuiM96.83 Other fatigue Functional Status Description No Information Available Mental Status Description No Information Available Referrals Description No Information Available
[2019-06-06 04:01] LABS: Troponin I 0.01 ng/mL (<0.04)
--- OUTSIDE RECORDS SUMMARY | 2019-06-06 04:01 | XMS REPORT | Continuity of Care Document ---
:1940 External Reference #:[id number] Author Name Austen Dawn M.D. Address [address] [place] [address] Care Team Providers Name Role Phone Primitivo Zapien M.D. Primary Care Physician Unavailable Payers Date Identification Numbers Payment Provider Subscriber Effective: 2004 Policy Number: [id number] Medicare - [facility] Alexandr Mitchell Ronald PayID: [id number] [address] [place] [address] Policy Number: [id number] [place] Plan Alexandr Mitchell Ronald PayID: [id number] [address] [place] [address] Problems Active Problems Provider Date Allergy Onset: [...] Austen Dawn M.D. 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 Retired ETOH Use Occasionally consumes wine Tobacco Use Start: Unknown Patient has never smoked Recreational Drug Use Denies Drug Use Smoking Status Reviewed: 04/08/19 Patient has never smoked Allergies, Adverse Reactions, Alerts Active Allergies Reaction Severity Comments Date Lipitor muscle pain 03/30/2015 Pravachol muscle pain 03/30/2015 Niaspan muscle pain 03/30/2015 Statins muscle pain 03/30/2015 Strawberries 04/06/2018 Medications Active Medications SIG Qnty Indications Ordering Provider Date Simbrinza 1 drop both eyes 24ml H40.053 Austen Dawn, 04/08/2019 1-0.2% twice a day M.DTanesha Suspension Dilt-XR Unknown 120mg Caps ER 24HR Warfarin Sodium Unknown 5mg Tablets Zolpidem Tartrate Primitivo Zapien M.D. 5mg Tablets Vitamin D 1 by mouth twice Unknown (Cholecalciferol) a day 1000Unit Tablets Lovaza 1 tab by mouth Unknown 1gm Capsules twice a day Nitrostat Unknown 0.4mg Tablets Sub Aspirin Ec 1 daily Unknown 81mg Tablets DR History Medications Sfrri-8-Atbw Ethyl Esters Austen Dawn, 03/29/2015 - 03/29/2015 1gm M.DTanesha Capsules Zetia Primitivo Zapien M.D. - 04/07/2019 10mg Tablets Aspirin Unknown - 03/29/2015 325mg Tablets Multivitamins Unknown - 03/29/2015 Capsules Crestor 1/5 tab qod Unknown - 04/07/2019 5mg Tablets Diltiazem HCL ER Coated Unknown - 04/07/2019 Beads 120mg Caps ER 24HR Flovent HFA Primitivo Zapien M.D. - 04/07/2019 44mcg/Act Aerosol Vital Signs Date [...] 14 /min Procedures Date Code Description Status 10/08/2018 53728 Est Patient Comprehensive Exam Completed 04/06/2018 06846 Est Patient Intermediate Exam Completed 10/06/2017 83942 Est Patient Intermediate Exam Completed 04/03/2017 33084 Est Patient Comprehensive Exam Completed 11/12/2016 02048 Iridotomy/Iredectomy By Laser Surgery Completed 10/15/2016 86237 Iridotomy/Iredectomy By Laser Surgery Completed 10/03/2016 19851 Est Patient Intermediate Exam Completed 04/01/2016 76578 Est Patient Comprehensive Exam Completed 04/01/2016 13315 Visual Field Exam Extended Completed 04/01/2016 21167 Scanning Computerized Ophthalmic Diagnostic Imag Posterior Completed Seg On 09/29/2015 19869 Est Patient Intermediate Exam Completed 03/30/2015 78275 Fundus Photography With Interpretation And Report Completed 03/30/2015 65276 Visual Field Exam Extended Completed 03/30/2015 62894 Est Patient Comprehensive Exam Completed 09/30/2014 47702 Gonioscopy Completed 09/30/2014 43587 Est Patient Intermediate Exam Completed 04/28/2014 85026 Visual Field Exam Extended Completed 04/28/2014 72076 Est Patient Intermediate Exam Completed 03/28/2014 40527 Pachymetry Completed 03/28/2014 46438 Est Patient Comprehensive Exam Completed 03/28/2014 77093 Scanning Computerized Ophthalmic Diagnostic Imag Posterior Completed Seg On 03/26/2013 46205 Determination Of Refractive State Completed 03/26/2013 38174 Est Patient Comprehensive Exam Completed 03/27/2012 52971 Est Patient Comprehensive Exam Completed 03/26/2011 97268 Fundus Photography With Interpretation And Report Completed 03/26/2011 82301 Est Patient Comprehensive Exam Completed 12/29/2009 76412 Est Patient Comprehensive Exam Completed 12/29/2009 84262 Scanning Laser W/Interp And Report Completed 12/21/2008 22467 Est Patient Comprehensive Exam Completed 12/18/2007 79252 Determination Of Refractive State Completed 12/18/2007 70565 Est Patient Comprehensive Exam Completed 12/18/2006 68343 Determination Of Refractive State Completed 12/18/2006 53153 Est Patient Comprehensive Exam Completed 12/12/2005 18039 Est Patient Comprehensive Exam Completed 12/06/2004 15223 Determination Of Refractive State Completed 12/06/2004 04170 Est Patient Comprehensive Exam Completed Encounters Type Date Location Provider Dx Diagnosis Office Visit 12/30/2016 Austen Dawn, Austen Dawn, H40.033 Anatomical narrow 10:15a [place] GONZALEZ M.D. angle, bilateral H40.052 Ocular hypertension, left eye H25.813 Combined forms of age-related cataract, bilateral Office Visit 05/25/2008 2:15p Austen Salazar, 373.00 Blepharitis Unspec MD Nereyda, [place] Plan of Treatment 04/08/2019 - Austen Dawn M.D.H25.813 Combined forms of age-related cataract , bilateralComments:Smoking can increase the risk of developing or worsening any eye related disease, as well as affect your overall health. If you are a smoker, we strongly recommend that you quit.If you are not a smoker, we strongly recommend that you do not start. You have been diagnosed with cataracts. They are limiting your vision, and I am unable to improve you with new glasses. Our next step is to schedule Cataract surgery and all necessary appointments, which Mary will do for you. We recommend that you write down any questions you may have and bring them to your preoperative appointment so that Dr. Duran answer them for you. If you have any questions or concerns, you can reach Mary at .Follow up:For preop exam before surgery.H40.033 Anatomical narrow angle, bilateralComments:Dr. Dawn has determined you have Narrow Angles in both eyes. This is just how your eyes are made. Please follow the instructions given to you by Dr. Dawn and read the pamphlet that is printed out foryou. If you have any sudden decrease in vision, pain, halos, or prismatic effects around lights, please make sure to call the office immediately.H40.053 Ocular hypertension, bilateralNew Medication: Simbrinza 1-0.2 % - 1 drop both eyes twice a dayComments:USE SIMBRINZA 1 DROP BOTH EYES TWICE A DAY
[2019-06-06 04:36] VITALS: BP 133/93
== END 2019-06-06 04:44 | disposition home or self-care (01) ==
LOC: ED 03:06
DX: I48.91 Unspecified atrial fibrillation (principal); M25.522 Pain in left elbow; M25.521 Pain in right elbow; I25.119 Atherosclerotic heart disease of native coronary artery with unspecified angina pectoris; Z88.6 Allergy status to analgesic agent; Z88.5 Allergy status to narcotic agent; Z88.8 Allergy status to other drugs, medicaments and biological substances; Z91.018 Allergy to other foods
CPT/HCPCS: 36415; 80053; 83605; 84484; 85025; 85610; 93005; 99282

== ENCOUNTER 2019-06-25 17:37 | Emergency (ER) | payer MEDICARE, BC ==
[2019-06-25] MEDS ORDERED: Diltiazem IV push/loading dose 5 MG/ML 5 ML vial (25 mg) IV PUSH ONE (17:45)
[2019-06-25] MEDS ORDERED: NS 0.9% 1000 ML** 1,000 ML IV ONE (17:45)
--- OUTSIDE RECORDS SUMMARY | 2019-06-25 17:48 | XMS REPORT | Continuity of Care Document ---
:1940 External Reference #:[id number] Author Name Aurora Garcia PA-C Address [address] [place] [address] Care Team Providers Name Role Phone Primitivo Zapien M.D. - Family Medicine Care Team Information Senior Care Provider Problems Active Problems Provider Date Essential hypertension Singh Lin MD Onset: 08/02/2005 Social History Type Date Description Comments Sex Unknown Tobacco Use Start: Unknown Never Smoked Cigarettes Tobacco Use Start: Unknown Never Smoked A Pipe Smokeless Tobacco Never Used Smokeless Tobacco ETOH Use Currently rarely consumes alcohol Tobacco Use Start: Unknown Patient has never smoked Smoking Status Reviewed: 06/21/19 Patient has never smoked Allergies, Adverse Reactions, Alerts Active Allergies Reaction Severity Comments Date Lipitor 08/02/2005 Pravachol 08/02/2005 Statins muscle aches 07/22/2014 Medications Active Medications SIG Qnty Indications Ordering Date Provider Prednisone 60 for 7 days, 27tabs H91.22 Singh Shaw 06/11/2019 20mg Tablets then 40 for 2 MD Delia days, then 20 for 2 days Aspirin 1 by mouth once a Shallish, Primitivo 81mg Tablets day M.D. Lovaza as directede Shallish, Primitivo 1gm Capsules M.D. Vitamin D 1 by mouth every Shallish, Primitivo 2000Unit week M.D. Capsules Diltiazem HCL take once daily Shallish, Primitivo 120mg with supper M.D. Tablets Warfarin Sodium Take as directed Shallish, Primitivo 7.5mg M.D. Tablets Co Q10 1 by mouth every Unknown 100mg Capsules day Omeprazole Shallish, Primitivo 40mg Capsules M.DTanesha Florence N.P., 90mg Tablets Leanne Amayaalta Linus Lohan 75mg/ml Solution M.DTanesha Pen-Inject Eliquis TK 1 T PO bid Unknown 5mg Tablets Nitroglycerin Unknown 0.4mg Tablets Sub Zolpidem Tartrate Unknown 5mg Tablets Immunizations Description No Information Available Vital Signs Date Vital Result Comment 06/22/2019 10:47am Weight 175.00 lb Weight 79.380 kg Height 70 inches 5'10" Height in cm's 177.8 cm BMI (Body Mass Index) 25.1 kg/m2 06/11/2019 9:21am Weight 175.00 lb Weight 79.380 kg Height 70 inches 5'10" Height in cm's 177.8 cm BMI (Body Mass Index) 25.1 kg/m2 Results Description No Information Available Procedures Date Code Description Status 06/14/2019 06128 Tympanometry Completed 06/14/2019 07007 Comprehensive Audiogram Completed 06/10/2019 99046 Removal Foreign Body External Ear W/O Anesthesia Completed Medical Devices Description No Information Available Encounters Type Date Location Provider Dx Diagnosis Office Visit 06/11/2019 [place],After Aurora Garcia, 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 09/15/07 [facility] hearing loss, left ear H90.A21 Snsrnrl hear loss, uni, r ear, with rstrcd hear cntra side Assessments Date Code Description Provider 06/22/2019 H90.3 Sensorineural hearing loss, Aurora Garcia PA-C bilateral 06/14/2019 H90.A22 Sensorineural hearing loss, NANDO Grace unilateral, left ear, with restricted hearing on the contralateral side 06/14/2019 H90.A22 Sensorineural hearing loss, Rah Man MA, CCC-A unilateral, left ear, with restricted hearing on the contralateral side 06/11/2019 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
--- OUTSIDE RECORDS SUMMARY | 2019-06-25 17:49 | XMS REPORT | Continuity of Care Document ---
:1940 External Reference #:[id number] Author Name Primitivo Zapien M.D. 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 Onset: 04/13/2018 Type 2 diabetes mellitus Primitivo Zapien M.D. Onset: 10/26/2018 Acute bronchitis Primitivo Zapien M.D. Onset: 10/26/2018 Combined form of senile cataract Primitivo Zapien M.D. Onset: 04/10/2019 Mixed hyperlipidemia Primitivo Zapien M.D. Onset: 04/10/2019 Encounter for other preprocedural Primitivo Zapien M.D. Onset: 04/10/2019 examination Gricelda Primitivo Zapien M.D. Onset: 06/08/2019 Hearing loss Primitivo Zapien M.D. Onset: 06/08/2019 Social History Type Date Description Comments Sex [...] Medications SIG Qnty Indications Ordering Date Provider Omeprazole 1 by mouth every 30caps Primitivo FTanesha 06/08/2019 40mg day Aditi Zapien Capsules DR Brianne Jade test fasting 100units Primitivo F. 10/28/2018 Lancets Extra Fine blood sugar qd or Aditi Zapien 33G as directed - Dx: Misc E11.9 - last seen 10/26/18 Brianne Ultra Blue test 1 time 100units Primitivo FTanesha 09/10/2016 daily- dx:e11.9 - Aditi Zapien Strips last seen 10/26/18 Zolpidem Tartrate 1-2 by mouth 60tabs Primitivo F. 06/15/2015 5mg every night at Aditi Zapien Tablets bedtime as needed Vitamin D3 1 po bid Primitivo F. 10/11/2014 Tablets Aditi Zapien Nitrostat 1 sl as needed, 25tabs Primitivo F. 08/05/2014 0.4mg repeat every 5 Aditi Zapien Tablets Sub minutes up to three tabs, call 911 Aspirin 1 by mouth every 90tabs Primitivo F. 06/30/2014 81mg Tablets day Aditi Zapien Lovaza take 2 capsules 360caps Primitivo F. 12/18/2009 1gm Capsules twice a day Aditi [...] CPT Code Status Date Vaccine Lot # [id number] Given 05/29/2019 High-Dose, Influenza Virus Vacccine-fluzone 65 [id number] and older 37745 Given 10/02/2018 Zoster (Shingles) Vaccine (HZV), Recombinant, Subunit, Adjuvanted 31427 Given 06/15/2018 Zoster (Shingles) Vaccine (HZV), Recombinant, Subunit, Adjuvanted 72386 Given 05/25/2018 High-Dose, Influenza Virus Vacccine-fluzone 65 [id number] and older 65677 Given 06/05/2017 High-Dose, Influenza Virus Vacccine-fluzone 65 [id number] and older 08553 Given 05/27/2016 High-Dose, Influenza Virus Vacccine-fluzone 65 and older 49170 Given 05/27/2016 High-Dose, Influenza Virus Vacccine-fluzone 65 [id number] and older 85798 Given 06/24/2015 Influenza Vac, Quadrivalent, Slit Virus, Im [id number] 72858 Given 02/07/2015 Pneumococcal Conjugate Vacc-13 [id number] 80379 Given 06/18/2014 High-Dose, Influenza Virus Vacccine-fluzone 65 [id number] and older Q2038 Given 06/19/2013 Split Influenza Medicare: Fluzone [id number] 16650 Given 06/05/2012 High-Dose, Influenza Virus Vacccine-fluzone 65 [id number] and older 12228 Given 04/16/2012 Zostivax [id number] 30975 Given 04/16/2012 Tdap Tetanus, W Pertussis [id number] 13254 Given 06/22/2011 High-Dose, Influenza Virus Vacccine-fluzone 65 [id number] and older 27147 Given 06/08/2010 DO Not Use Split Influenza Virus Vaccine [id number] 21457 Given 08/16/2009 DO Not Use Split Influenza Virus Vaccine [id number] 80549 Given 06/25/2008 DO Not Use Split Influenza Virus Vaccine [id number] 29770 Given 07/25/2007 DO Not Use Split Influenza Virus Vaccine [id number] 57595 Given 07/26/2006 DO Not Use Split Influenza Virus Vaccine [id number] 03292 Given 06/27/2005 DO Not Use Split Influenza Virus Vaccine 85054 Given 06/20/2003 Pneumococcal Immunization 29994 Given 06/20/2003 Pneumococcal Immunization 83082 Given 06/08/2003 DO Not Use Split Influenza Virus Vaccine 23057 Given 06/08/2003 DO Not Use Split Influenza Virus Vaccine 42395 Given 07/09/2002 DO Not Use Split Influenza Virus Vaccine 12553 Given 08/28/2001 Influenza Immunization 87825 Given 08/28/2001 DO Not Use Split Influenza Virus Vaccine 42729 Given 07/14/2000 DO Not Use Split Influenza Virus Vaccine 45518 Given 07/11/1999 DO Not Use Split Influenza Virus Vaccine 53154 Given 07/17/1998 Influenza Immunization 97108 Given 04/13/1997 Td Immunization, For Use In Individuals 7 Years Or Older Vital Signs Date Vital Result Comment 06/08/2019 5:15pm BP Systolic 130 mmHg BP Diastolic 78 mmHg Heart Rate 64 /min Body Temperature 97.5 F Respiratory Rate 20 /min Weight 174.00 lb 05/29/2019 12:00pm BP Systolic 110 mmHg BP Diastolic 60 mmHg Heart Rate 56 /min Body Temperature 97.7 F Respiratory Rate 16 /min Height 69.25 inches 5'9.25" Weight 173.12 lb BMI (Body Mass Index) 25.4 kg/m2 Results Test Date Facility Test Result H/L Range Note Laboratory test [facility] Hematocrit 41.4 % 35.0-50.0 finding 9 (607)- - (Fma/CMC/CTX) CBC Auto Diff [facility] White Blood 9.0 10^3/uL Normal 3.5-10.8 9 Count Red Blood Count 4.47 10^6/uL Normal 4.18-5.48 Hemoglobin 14.8 g/dL Normal 14.0-18.0 Hematocrit 43 % Normal 42-52 Mean Corpuscular Volume 96 fL High 80-94 Mean Corpuscular Hemoglobin 33 pg High 27-31 Mean Corpuscular HGB Conc 34 g/dL Normal 31-36 Red Cell Distribution Width 14 % Normal 10-15 Platelet Count 222 10^3/uL Normal 150-450 Mean Platelet Volume 7.5 fL Normal 7.4-10.4 Abs Neutrophils 5.5 10^3/uL Normal 1.5-7.7 Abs Lymphocytes 2.6 10^3/uL Normal 1.0-4.8 Abs Monocytes 0.7 10^3/uL Normal 0-0.8 Abs Eosinophils 0.1 10^3/uL Normal 0-0.6 Abs Basophils 0.1 10^3/uL Normal 0-0.2 Abs Nucleated RBC 0.0 10^3/uL Granulocyte % 60.8 % Lymphocyte % 29.4 % Monocyte % 7.4 % Eosinophil % 1.5 % Basophil % 0.9 % Nucleated Red Blood Cells % 0.0 Inr/Protime 06/06/2019 [facility] Inr 1.26 High 0.82-1.09 1 Laboratory test finding 06/06/2019 [facility] Lactic Acid 0.9 mmol/L Normal 0.5- 2.0 2 Comp Metabolic Panel 06/06/2019 [facility] Sodium 140 mmol/L Normal 135-145 Potassium 3.8 mmol/L Normal 3.5-5.0 Chloride 108 mmol/L Normal 101-111 Co2 Carbon Dioxide 22 mmol/L Normal 22-32 Anion Gap 10 mmol/L Normal 2-11 Glucose 153 mg/dL High 70-100 Blood Urea Nitrogen 18 mg/dL Normal 6-24 Creatinine 1.02 mg/dL Normal 0.67-1.17 BUN/Creatinine Ratio 17.6 Normal 8-20 Calcium 9.5 mg/dL Normal 8.6-10.3 Total Protein 6.7 g/dL Normal 6.4-8.9 Albumin 4.2 g/dL Normal 3.2-5.2 Globulin 2.5 g/dL Normal 2-4 Albumin/Globulin Ratio 1.7 Normal 1-3 Total Bilirubin 0.60 mg/dL Normal 0.2-1.0 Alkaline Phosphatase 48 U/L Normal 34-104 Alt 14 U/L Normal 7-52 Ast 15 U/L Normal 13-39 Egfr Non- 70.5 >60 Egfr 85.2 >60 3 Laboratory test 06/06/2019 [facility] Troponin I 0.01 ng/mL <0.04 4 finding Laboratory test 05/28/2019 [facility] Inr (Fma) 1.3 Low 2.0-3.0 finding (607)- - Laboratory test 05/24/2019 [facility] Inr (Fma) 2.4 2.0-3.0 finding (607)- - Laboratory test 05/07/2019 [facility] Poc Activated 243 seconds 5 finding Clotting Time Laboratory test 05/07/2019 [facility] Poc Activated 235 seconds 6 finding Clotting Time Laboratory test 05/07/2019 [facility] Poc Activated 219 seconds 7 finding Clotting Time Inr/Protime 05/07/2019 [facility] Inr 1.30 High 0.82-1.09 8 Laboratory test 05/07/2019 [facility] Hemoglobin A1c 6.5 % High 4.0-5.6 9 finding (Glyco HGB) Laboratory test 05/04/2019 [facility] Partial Thrombo 44.1 High 26.0-38.0 finding Time PTT seconds Inr/Protime 05/04/2019 [facility] Inr 3.09 High 0.82-1.09 10 Laboratory test 05/04/2019 [facility] Creatine 34 U/L Normal 10-223 finding Kinase(CK) Lipid Profile 05/04/2019 [facility] Triglycerides 181 mg/dL 11 (Trig/Chol/HDL) Cholesterol 113 mg/dL 12 HDL Cholesterol 33.7 mg/dL 13 LDL Cholesterol 43 mg/dL 14 Comp Metabolic Panel 05/04/2019 [facility] Sodium 140 mmol/L Normal 135-145 Potassium 4.6 [...] Egfr Non- 73.8 >60 Egfr 89.3 >60 15 CBC Auto Diff 05/04/2019 [facility] White Blood Count 7.3 10^3/uL Normal 3.5- 10.8 Red Blood Count 4.46 10^6/uL Normal 4.18-5.48 [...] Red Blood Cells % 0.1 Laboratory test 04/28/2019 [facility] Point of Care 124 mg/dL High 70-100 16 finding Glucose Laboratory test 04/22/2019 [facility] Inr (Fma) 2.4 2.0-3.0 finding (607)- - Laboratory test 04/21/2019 [facility] Point of Care 134 mg/dL High 70-100 17 finding Glucose Lipid Profile 04/10/2019 Missael Lanier(fma) Cholesterol 117 mg/dL Low 120-200 18 Triglycerides 166 mg/dL 30-200 HDL Cholesterol 34 mg/dL 30-70 LDL (Calculated) 50 CALC 0-129 VLDL Cholesterol 33 mg/dL 0-50 HDL Risk Factor 3.4 CALC 0.0-4.4 Laboratory test finding 04/10/2019 Missael Lanier(fma) TSH 2.52 mIU/L 0.50-6.00 CK 49 U/L 38-174 Laboratory test 03/22/2019 [facility] Inr (Fma) 2.2 2.0-3.0 finding (607)- - Ict-Hemoccult 02/26/2019 [facility] Ict Hemoccult (1) 02/20/19 Neg. (MCR)Fma Screeni (607)- - Ict Hemoccult-(2) 02/22/16 Neg. Ict-Hemoccult (3) 02/22/19 Neg. Laboratory test 02/19/2019 [facility] Hemoglobin A1c 6.2 % High 4.1- 5.7 finding (607)- - (Fma) Inr (Fma) 2.1 2.0-3.0 Comprehensive Metabolic 02/19/2019 Missael Lanier(fma) Sodium 142 mEq/L 134-149 Prof Potassium 4.9 [...] GFR >60 ml/min/1.73m^ >=60 Laboratory test 02/19/2019 Missael Lanier([facility] [place] Free T4 0.88 ng/dL 0.75- 1.54 finding TSH 2.14 mIU/L 0.50-6.00 CBC Electronic Fma 02/19/2019 Missael Lanier([facility] [place]) WBC 6.7 x10^3/UL 4.0- 10.0 RBC 4.48 x10^6/UL 3.93-6.00 HGB 14.4 g/dL 12.0-17.0 HCT 43 % 35-50 MCV 95.8 fL High 80.0-95.0 MCH 32.1 pg 25.6-32.2 MCHC 33.6 g/dL 32.2-36.0 RDW-CV 13.0 % 11.6-14.4 PLT 194 x10^3/UL 163-400 MPV 9.5 fL 9.4-12.4 Constance# 3.90 x10^3/UL 1.56-6.13 Lymph# 2.13 x10^3/UL 1.18-3.74 [place]# 0.57 x10^3/UL 0.24-0.82 Eos # 0.1 x10^3/UL 0.0-0.5 Baso # 0.04 x10^3/UL 0.01-0.08 Constance% 58.0 % 34.0-70.0 Lymph % 31.6 % 20.0-52.0 [place]% 8.5 % 5.0-12.0 Eos% 1.0 % 0.7-7.0 Baso% 0.6 % 0.1-1.2 Lyme Disease AB Immunoblot WB 02/19/2019 [facility] IgG Immunoblot Negative Negative 19 IgG detected against p23 kDa IgM Immunoblot Negative Negative IgM detected against None kDa Lyme Disease Interpretation See Comment 20 Laboratory test 01/20/2019 [facility] Inr ([facility]) 2.3 2.0-3.0 finding (607)- - Laboratory test 12/17/2018 [facility] Inr (Fma) 1.9 Low 2-3 finding (607)- - Laboratory test 12/12/2018 [facility] PSA Screening < 0.008 Normal 0-4.0 21 finding ng/mL 1 Standard intensity warfarin therapeutic range: 2.0-3.0 High intensity warfarin therapeutic range: 2.5-3.5 2 [place] Severe Sepsis and Septic Shock Management Bundle Measure requires all lactic acids initially measuring >2.0 mmol/L be repeated. 3 Because ethnic data is not always readily [...] 15-29 5 Kidney failure <15 (or dialysis) 4 Troponin-I testing on Plasma Separator Tubes (PST) has a known false positive rate of 0.20-0.40%. All positive troponins reflex immediately to secondary confirmatory testing. Using the [employer] DxI 800 Access Immunoassay systems, the 99th percentile upper reference limit was demonstrated to be < 0.03 ng/mL. 5 Fingerprint Classifier: [id number] Reference Range: 74-125 seconds 6 Fingerprint Classifier: [id number] Reference Range: 74-125 seconds 7 Fingerprint Classifier: [id number] Reference Range: 74-125 seconds 8 Standard intensity warfarin therapeutic range: 2.0-3.0 High intensity warfarin therapeutic range: 2.5-3.5 9 Therapeutic target for the treatment of diabetes mellitus patients is <7% HBA1C, and in selective patients <6.0%. Please refer to [place] [employer] diabetic care guidelines for further information. 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 Test Performed by: [facility] [address] [place] [address] 21 Serum levels of PSA measured using the [...] methods or kits cannot be used interchangeably. Procedures Date Code Description Status 05/28/2019 11374 Finger Or Heel Stick Completed 05/24/2019 56535 Finger Or Heel Stick Completed 04/22/2019 39238 Finger Or Heel Stick Completed 03/22/2019 72266 Finger Or Heel Stick Completed 01/20/2019 16978 Finger Or Heel Stick Completed 12/17/2018 39418 Finger Or Heel Stick Completed 06/21/2016 53160477 Colonoscopy Completed 12/09/2007 37678552 Colonoscopy Completed Medical Devices Description No Information Available Encounters Type Date Location Provider Dx Diagnosis Office Visit 05/29/2019 [facility] Primitivo Zapien, Z23 Encounter for 11:40a M.D. immunization I25.10 Athscl heart disease of [place] coronary artery w/o ang pctrs I48.0 Paroxysmal atrial fibrillation R53.83 Other fatigue G47.09 Other insomnia R73.09 Other abnormal glucose E78.49 Other hyperlipidemia Z85.46 Personal history of malignant neoplasm of prostate Office Visit 04/10/2019 10:20a [facility] Primitivo Priest I48.0 Paroxysmal atrial Rupali, M.D. fibrillation I25.10 Athscl heart disease of [place] coronary artery w/o ang pctrs R53.83 Other fatigue E78.49 Other hyperlipidemia H25.89 Other age-related cataract Z01.818 Encounter for other preprocedural examination Office Visit 03/02/2019 Tomasz Smith S70.361A Insect bite 9:45a Office WALTER Ward (nonvenomous), right thigh, initial encounter W57.xxxA Bit/stung by nonvenom insect & oth nonvenom arthropods, init Office Visit 02/19/2019 10:20a [facility] Office Primitivo Priest I25.10 Athscl heart Aditi Zapien disease of [place] coronary artery w/o ang pctrs E11.9 Type 2 diabetes mellitus without complications I48.0 Paroxysmal atrial fibrillation R53.83 Other fatigue Z12.11 Encounter for screening for malignant neoplasm of colon Assessments Date Code Description Provider 06/08/2019 I48.0 Paroxysmal atrial fibrillation Primitivo Zapien M.D. 06/08/2019 K92.1 Gricelda Primitivo Zapien M.D. 06/08/2019 H91.93 Unspecified hearing loss, bilateral Primitivo Zapien M.D. 05/29/2019 Z23 Encounter for immunization Primitivo Zapien M.D. 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 05/29/2019 R53.83 Other fatigue rPimitivo Zapien M.D. 05/29/2019 G47.09 Other insomnia Primitivo Zapien M.D. 05/29/2019 R73.09 Other abnormal glucose Prmiitivo Zapien M.D. 05/29/2019 E78.49 Other hyperlipidemia Primitivo Zapien M.D. 05/29/2019 Z85.46 Personal history of malignant neoplasm of Primitivo Zapien M.D. prostate 05/28/2019 Z79.01 [facility] (current) use of anticoagulants Primitivo Zapien M.D. 05/28/2019 I48.0 Paroxysmal atrial fibrillation Primitivo Zapien M.D. 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 05/24/2019 I48.0 Paroxysmal atrial fibrillation Primitivo Zapien M.D. 04/22/2019 Z79.01 [facility] (current) use of anticoagulants Primitivo Zapien M.D. 04/22/2019 I48.0 Paroxysmal atrial fibrillation Primitivo Zapien M.D. 04/10/2019 I48.0 Paroxysmal atrial fibrillation Primitivo Zapien M.D. 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 coronary artery with 04/10/2019 R53.83 Other fatigue Primitivo Zapien M.D. 04/10/2019 E78.49 Other hyperlipidemia Primitivo Zapien M.D. 04/10/2019 H25.89 Other age-related cataract Primitivo Zapien M.D. 04/10/2019 Z01.818 Encounter for other preprocedural Primitivo Zapien M.D. 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 complications 02/19/2019 I48.0 Paroxysmal atrial fibrillation Primitivo Zapien M.D. 02/19/2019 R53.83 Other fatigue Primitivo Zapien M.D. 02/19/2019 Z12.11 Encounter for screening for malignant Primitivo Zapien M.D. neoplasm of colon 01/20/2019 Z79.01 [facility] (current) use of anticoagulants Primitivo Zapien M.D. 01/20/2019 I48.0 Paroxysmal atrial fibrillation Primitivo Zapien M.D. 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 12/17/2018 I48.0 Paroxysmal atrial fibrillation Priimtivo Zapien M.D. Plan of Treatment Future Appointment(s):08/20/2019 10:20 am - Primitivo Zapien M.D. at [facility]06/08/2019 - Primitivo Zapien M.D.I48.0 Paroxysmal atrial fibrillationComments:stable at this point, he is going to follow up with Dr LoK92.1 [facility] Labs:Ict Hemoccult (Fma), Ordered: 06/08/19Comments:he was supposed to quit aspirin end of May, will start on Omeprazole to protect his stomach and send in hemeoccult cardsto consider GI workup if symptoms qafatzN70.93 Unspecified hearing loss, bilateralComments:refer to ENT for removal of hearing aid tipsAllNew Medication:Omeprazole 40 mg - 1 by mouth every day Functional Status Description No Information Available Mental Status Description No Information Available Referrals Refer to Reason for Referral Status Appt Date Austen Flores ([facility]) Consult and treat. LT Created [address] [place] [address] [phone]
--- OUTSIDE RECORDS SUMMARY | 2019-06-25 17:49 | XMS REPORT | Continuity of Care Document ---
:1940 External Reference #:[id number] Author Name Singh Lin MD Address [address] [place] [address] Care Team Providers Name Role Phone Primitivo Zapien M.D. - Family Medicine Care Team Information Prefitter Problems Active Problems Provider Date Essential hypertension Singh Lin MD Onset: 08/02/2005 Social History Type Date Description Comments Sex Unknown Tobacco Use Start: Unknown Never Smoked Cigarettes Tobacco Use Start: Unknown Never Smoked A Pipe Smokeless Tobacco Never Used Smokeless Tobacco ETOH Use Currently rarely consumes alcohol Tobacco Use Start: Unknown Patient has never smoked Smoking Status Reviewed: 11/24/18 Patient has never smoked Allergies, Adverse Reactions, Alerts Active Allergies Reaction Severity Comments Date Lipitor 08/02/2005 Pravachol 08/02/2005 Statins muscle aches 07/22/2014 Medications Active Medications SIG Qnty Indications Ordering Provider Date Aspirin 1 by mouth once a Shallish, [...] Capsules day Omeprazole Shallish, Primitivo 40mg Capsules M.D. DR Joseluis Florence N.PTanesha, Leanne 90mg Tablets PraluSingh Verma 75mg/ml Solution M.D. Pen-Inject Eliquis TK 1 T PO bid Unknown 5mg Tablets Nitroglycerin Unknown 0.4mg Tablets Sub Zolpidem Tartrate Unknown 5mg Tablets Immunizations Description No Information Available Vital Signs Date Vital Result Comment 06/10/2019 9:18am Weight 175.00 lb Weight 79.380 kg Height 70 inches 5'10" Height in cm's 177.8 cm BMI (Body Mass Index) 25.1 kg/m2 11/24/2018 10:00am Weight 180.00 lb Weight 81.648 kg Height 70 inches 5'10" Height in cm's 177.8 cm BMI (Body Mass Index) 25.8 kg/m2 Results Description No Information Available Procedures Date Code Description Status 06/10/2019 45893 Removal Foreign Body External Ear W/O Anesthesia Completed Medical Devices Description No Information Available Encounters Description No Information Available Assessments Date Code Description Provider 06/10/2019 T16.2xxA Foreign body in left ear, initial encounter Singh Lin MD Plan of Treatment No Information Available Functional Status Description No Information Available Mental Status Description No Information Available Referrals Description No Information Available
--- OUTSIDE RECORDS SUMMARY | 2019-06-25 17:49 | XMS REPORT | Continuity of Care Document ---
:1940 External Reference #:[id number] Author Name Aurora Garcia PA-C Address [address] [place] [address] Care Team Providers Name Role Phone Primitivo Zapien M.D. - Family Medicine Care Team Information Activities Manager Problems Active Problems Provider Date Essential hypertension [...] Capsules M.DTanesha Florence N.P., 90mg Tablets Leanne Mike Linus Lohan 75mg/ml Solution M.DTanesha Pen-Inject Eliquis TK 1 T PO bid Unknown 5mg Tablets Nitroglycerin Unknown 0.4mg Tablets Sub Zolpidem Tartrate Unknown 5mg Tablets Immunizations Description No Information Available Vital Signs Date Vital Result Comment 06/11/2019 9:21am Weight 175.00 lb Weight 79.380 kg Height 70 inches 5'10" Height in cm's 177.8 cm BMI (Body Mass Index) 25.1 kg/m2 06/10/2019 9:18am Weight 175.00 lb Weight 79.380 kg Height 70 inches 5'10" Height in cm's 177.8 cm BMI (Body Mass Index) 25.1 kg/m2 Results Description No Information Available Procedures Date Code Description Status 06/10/2019 51320 Removal Foreign Body External Ear W/O Anesthesia Completed Medical Devices Description No Information Available Encounters Type Date Location Provider Dx Diagnosis Office Visit 06/11/2019 [place],After Aurora Garcia, 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 09/15/07 [facility] hearing loss, left ear H90.A21 Snsrnrl hear loss, uni, r ear, with rstrcd hear cntra side Assessments Date Code Description Provider 06/11/2019 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, left ear MARY Bhat 06/11/2019 H90.A21 Sensorineural hearing loss, unilateral, MARY Bhat right ear, with restricted hearing on the contralateral side 06/10/2019 T16.2xxA Foreign body in left ear, initial encounter Singh Lin MD Plan of Treatment Future Appointment(s):06/14/2019 4:15 pm - Rah Man MA, CCC-A at [place],After 09/15/808 - WALTER Bhat-C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, left earNew Medication:Prednisone 20 mg - 60 for 7 days, then 40 for 2 days, then 20 for 2 daysH90.A21 Sensorineural hearing loss, unilateral, right ear, with restricted hearing on the contralateral side Functional Status Description No Information Available Mental Status Description No Information Available Referrals Description No Information Available
--- OUTSIDE RECORDS SUMMARY | 2019-06-25 17:49 | XMS REPORT | Continuity of Care Document ---
:1940 External Reference #:[id number] Author Name Casey Stewart Care Team Providers Name Role Phone Primitivo Zapien MD - Family Medicine Care Team Information Lacing Presser [phone] Problems Active Problems Provider Date Pure hypercholesterolemia [...] syndrome Taylor Monae DNP, RN, Onset: 07/08/2016 REGIONAL ENGINEER-BC Insomnia Taylor Monae DNP RN, Onset: 07/08/2016 REGIONAL ENGINEER-BC Encounter for planned postprocedural Juarez Mccarty M.D., [facility], Onset: 2018 wound closure FSCAI Social History Type Date Description Comments Sex [...] N.P. Brilinta 1 tab by mouth 90tabs Leanne Florence, 05/11/2019 90mg Tablets twice a day N.P. Praluent 1 injection sc 2ml E78.00 Singh [...] Jean M.D., 03/23/2015 Tetrofosmin, Per Unit Dose [facility], FASNY Up To 40 Millicuries Injection Immunizations CPT Code Status Date Vaccine Lot # [id number] Given 06/10/2016 Influenza Virus Vaccine, Quadrivalent, Split, [...] Test Result H/L Range Note Laboratory test [facility] Poc Activated 243 seconds 1 finding [address] [place] [address] [phone] Laboratory test [facility] Poc Activated 235 seconds 2 finding [address] [place] [place] [address] [phone] Laboratory test [facility] Poc Activated 219 seconds 3 finding [address] [place] [address] [phone] Inr/Protime [facility] Inr 1.30 High 0.82-1.09 [address] [place] [address] [phone] Laboratory test [facility] Hemoglobin A1c 6.5 % High 4.0-5.6 5 finding [address] (Glyco HGB) [place], [place] [address] [phone] Cath Panel [facility] Partial Thrombo 44.1 seconds High 26.0-38.[address] [place] [place] [address] [phone] CBC Auto Diff [facility] White Blood 7.3 10^3/uL Normal 3.5-10.[address] [place] [address] [phone] Red Blood Count 4.46 10^6/uL Normal 4.18-5.48 [...] Red Blood Cells % 0.1 Inr/Protime 05/04/2019 [facility] Inr 3.09 High 0.82-1.[address] [place] [address] [phone] Lipid Panel - 05/04/2019 [facility] Creatine 34 U/L Normal 10- [address] Kinase(CK) [place] [address] [phone] Comp Metabolic 05/04/2019 [facility] Sodium 140 Normal 135- [address] mmol/[place] [address] [phone] Potassium 4.6 mmol/L Normal 3.5-5.0 Chloride 105 [...] Egfr 89.3 >60 7 Lipid Profile 05/04/2019 [facility] Triglycerides 181 mg/dL 8 (Trig/Chol/HDL) [address] [place] [address] [phone] Cholesterol 113 mg/dL 9 HDL Cholesterol 33.7 mg/dL 10 LDL Cholesterol 43 mg/dL 11 1 Pan Washer Hand: [id number] Reference Range: 74-125 seconds 2 Pan Washer Hand: [id number] Reference Range: 74-125 seconds 3 Pan Washer Hand: [id number] Reference Range: 74-125 seconds 4 Standard intensity warfarin therapeutic range: 2.0-3.0 High intensity warfarin therapeutic range: 2.5-3.5 5 Therapeutic target for the treatment of diabetes mellitus patients is <7% HBA1C, and in selective patients <6.0%. Please refer to [place] [employer] diabetic care guidelines for further [...] >189 Procedures Date Code Description Status 05/12/2019 16539 EKG Tracing & Interpretation Completed 05/07/2019 06611 Coronary Angiography With Catheter Placement In Bpyass Completed Grafts 05/07/2019 51481 Intravascular Ultrasound (Coron) Completed 05/07/2019 00626 Percutaneous Transcatheter Placement Of Intracoronary Completed Stent 01/26/2019 37349 EKG Tracing & Interpretation Completed Medical Devices Description No Information Available Encounters Type Date Location Provider Dx Diagnosis Office Visit 05/24/2019 [facility] Leanne Florence, 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.1 Presence of aortocoronary bypass graft Office Visit 05/08/2019 1:30p [facility] Jose Luis Emanuel I25.10 Athscl heart Of Hot Car Operator AT [facility] [place] MD Liana, disease of [facility], [facility] [place] coronary artery w/o ang pctrs Z95.5 Presence of coronary angioplasty implant and graft E11.9 Type 2 diabetes mellitus without complications I10 Essential (primary) hypertension Office Visit 01/26/2019 10:20a [facility] Singh Priest I48.0 Paroxysmal atrial Aditi Lo fibrillation I10 Essential (primary) hypertension E78.00 Pure hypercholesterolemia, unspecified I25.10 Athscl heart disease of [place] coronary artery w/o ang pctrs I49.5 Sick sinus syndrome R53.83 Other fatigue Office Visit 01/01/2019 [facility] G47.33 Obstructive sleep 10:45a [facility] Monae, RN, apnea (adult) [facility] REGIONAL ENGINEER- (pediatric) R35.1 Nocturia 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 [place] coronary artery with 05/24/2019 I10 Essential (primary) hypertension Leanne Florence, N.P. 05/24/2019 E78.00 Pure hypercholesterolemia, Leanne Florence, N.P. unspecified 05/24/2019 I49.5 Sick sinus syndrome Leanne Florence, N.P. 05/24/2019 I48.0 Paroxysmal atrial fibrillation Leanne Florence, N.P. 05/12/2019 Z48.812 Encounter for surgical aftercare Juarez Mccarty M.D., [facility] , [facility] following surgery on the circulatory system 05/12/2019 I25.10 Atherosclerotic heart disease of Juarez Mccarty M.D., [facility], [facility] [place] coronary artery with 05/12/2019 Z95.1 Presence of aortocoronary bypass Juarez Mccarty M.D., [facility], FSCAI graft 05/08/2019 I25.10 Atherosclerotic heart disease of Jose Luis Gaines MD, LOLA, [place] coronary artery without [facility] angina pectoris 05/08/2019 Z95.5 Presence of coronary angioplasty Jose Luis Gaines MD, FACC , implant and graft [facility] [place] 05/08/2019 E11.9 Type 2 diabetes mellitus without Jose Luis Gaines MD, LOLA , complications [facility] 05/08/2019 I10 Essential (primary) hypertension Jose Luis Gaines MD, FACC, [facility] [place] 05/07/2019 I25.10 Atherosclerotic heart disease of Jose Luis Gaines MD, FACC, [place] coronary artery without [facility] angina pectoris 05/07/2019 Z95.1 Presence of aortocoronary bypass Jose Luis Gaines MD, [facility] , graft [facility] [place] 01/26/2019 I48.0 Paroxysmal atrial fibrillation Singh Lo M.D. 01/26/2019 I10 Essential (primary) hypertension Singh Lo M.D. 01/26/2019 E78.00 Pure hypercholesterolemia, Singh Lo M.D. unspecified 01/26/2019 I25.10 Atherosclerotic heart disease of Singh Lo M.D. [place] coronary artery with 01/26/2019 I49.5 Sick sinus syndrome Singh Lo M.D. 01/26/2019 R53.83 Other fatigue Singh Lo M.D. 01/01/2019 G47.33 Obstructive sleep apnea (adult) Taylor Monae DNP, RN, (pediatric) [facility] 01/01/2019 R35.1 Nocturia [facility] 01/01/2019 G47.01 Insomnia due to medical condition Taylor Monae DNP, RN , [facility] Plan of Treatment Future Appointment(s):08/25/2019 11:40 am - Yamel [facility]D. at [facility]07/02/2019 9:30 am - Taylor Monae DNP, RN, REGIONAL ENGINEER- at [facility]05/24/2019 - Leanne Florence N.P.I25.10 Atherosclerotic heart disease of [place] coronary artery withNew Therapy:Cardiac RehabFollow up:3mo OV JFMRecommendations:Try to have diet soda or coffee in your chair to see if that helps At the end of May stop ASA. Continue brilinta and eliquis.I10 Essential (primary) pmglhuytwxtiX98.00 Pure hypercholesterolemia, wtmcepzadyvE79.5 Sick sinus hxjjqvwzM44.0 Paroxysmal atrial fibrillationNew Medication:Eliquis 5 mg - 1 by mouth twice a dayRecommendations:Once you clam picker eliquis call our office. Plan: Stop warfarin 2-3 days later have INR check at [facility] When INR < 2.0 start eliquis. Functional Status Description No Information Available Mental Status Description No Information Available Referrals Description No Information Available
--- NOTE | 2019-06-25 18:02 | ED ---
HPI Cardiac - HPI Summary HPI Summary: 79 year old male presents to the ED with a chief complaint of irregular heart rhythm beginning earlier today. He reports discomfort in his chest, palpitations , and mild pain bilaterally in his forearms. Patient denies chest pain, shortness of breath, dizziness, feelings of syncope. He takes eloquis daily. Hx of atrial fibrillation. - History of Current Complaint Chief Complaint: EDDysrhythmPalp Stated Complaint: AFIB PER PT Time Seen by Provider: 06/25/19 17:45 Hx Obtained From: Patient Onset/Duration: Started Hours Ago Timing: Constant Initial Severity: Moderate Current Severity: Moderate Pain Intensity: 0 Character: Irregular Associated Signs and Symptoms: Positive: Palpitations. Negative: Chest Pain, Dizziness, Shortness of Breath - Allergy/Home Medications Allergies/Adverse Reactions: Allergies Allergy/AdvReac Type Severity Reaction Status Date / Time niacin Allergy Intermediate Flushing Verified 06/06/19 03:17 [From Niaspan Extended-Release] hydrocodone [From Lortab] Allergy Unknown Unknown Verified 06/06/19 03:17 Reaction Details acetaminophen [From Lortab] Allergy Unknown Verified 06/06/19 03:17 Reaction Details chocolate flavor Allergy Sneezing Verified 06/06/19 03:17 strawberry Allergy Hives Verified 06/06/19 03:17 atorvastatin [From Lipitor] AdvReac Severe Muscle Ache Verified 06/06/19 03:17 pravastatin AdvReac Severe Muscle Ache Verified 06/06/19 03:17 Home Medications: Home Medications Alirocumab [Praluent] 75 mg SUBCUT Q14D 06/25/19 [History Confirmed 06/25/19] Apixaban* [Eliquis*] 5 mg PO BID 06/25/19 [History Confirmed 06/25/19] Lpoyr-2-Jzdi Ethyl Esters (NF) [Lovaza (NF)] 1 gm PO BID 06/25/19 [History Confirmed 06/25/19] Potassium Chlor TAB* [Klor Con ER TAB*] 20 meq PO DAILY 06/25/19 [History Confirmed 06/25/19] Ubidecarenone [Co Q-10] 100 mg PO QAM 06/25/19 [History Confirmed 06/25/19] PMH/Surg Hx/FS Hx/Imm Hx Endocrine/Hematology History: Denies: Hx Diabetes Cardiovascular History: Reports: Hx Angina, Hx Atrial Fibrillation, Hx Coronary Artery Disease, Hx Hypercholesterolemia, Other Cardiovascular Problems/ Disorders - Afib Denies: Hx Congestive Heart Failure, Hx Hypertension, Hx Myocardial Infarction, Hx Pacemaker/ICD, Hx Valvular Heart Disease Respiratory History: Reports: Hx Sleep Apnea Denies: Hx Asthma, Hx Chronic Obstructive Pulmonary Disease (COPD) Comment Only: Other Respiratory Problems/Disorders - CPAP at night GI History: Reports: Hx Gastroesophageal Reflux Disease History: Reports: Other Problems/Disorders - hx frequency & urgency Denies: Hx Chronic Renal Failure, Hx Renal Disease Musculoskeletal History: Reports: Other Musculoskeletal History - spinal stenosis Sensory History: Reports: Hx Cataracts, Hx Contacts or Glasses - reading glasses , Hx Glaucoma - both eyes, Hx Hearing Aid - did not bring from home Opthamlomology History: Reports: Hx Cataracts, Hx Contacts or Glasses - reading glasses, Hx Glaucoma - both eyes Psychiatric History: Denies: Hx Panic Disorder - Cancer History Cancer Type, Location and Year: prostate cancer Hx Chemotherapy: No Hx Radiation Therapy: No - Surgical History Surgery Procedure, Year, and Place: HEART BYPASS WITH NO STENTING 1992. PROSTATE REMOVAL FROM [place]. GALLBLADDER 1994. VASECTOMY Hx Anesthesia Reactions: No - Immunization History Date of Tetanus Vaccine: utd Date of Influenza Vaccine: fall 2017 Infectious Disease History: No Infectious Disease History: Denies: Traveled Outside the [place] in Last 30 Days - Family History Known Family History: Positive: Hypertension, Other - Positive: Atrial fibrillation - Social History Alcohol Use: None Hx Substance Use: No Substance Use Type: Reports: None Hx Tobacco Use: No Smoking Status (MU): Never Smoked Tobacco Review of Systems Negative: Fever Positive: Palpitations. Negative: Chest Pain Negative: Shortness Of Breath Positive: Myalgia - forearm Neurological: Negative - negative dizziness, feelings of syncope. Negative: Syncope All Other Systems Reviewed And Are Negative: Yes Physical Exam - Summary Physical Exam Summary: VITAL SIGNS: Reviewed. GENERAL: Patient is a well-developed and nourished male who is lying comfortable in the stretcher. Patient is not in any acute respiratory distress. HEAD AND FACE: No signs of trauma. No ecchymosis, hematomas or skull depressions. No sinus tenderness. EYES: PERRLA, EOMI x 2, No injected conjunctiva, no nystagmus. EARS: Hearing grossly intact. Ear canals and tympanic membranes are within normal limits. MOUTH: Oropharynx within normal limits. NECK: Supple, trachea is midline, no adenopathy, no JVD, no carotid bruit, no c- spine tenderness, neck with full ROM. CHEST: Symmetric, no tenderness at palpation. LUNGS: Clear to auscultation bilaterally. No wheezing or crackles. CVS: Irregular rate and rhythm, S1 and S2 present, no murmurs or gallops appreciated. Tachycardia. ABDOMEN: Soft, non-tender. No signs of distention. No rebound, no guarding, and no masses palpated. Bowel sounds are normal. EXTREMITIES: FROM in all major joints, no edema, no cyanosis or clubbing. NEURO: Alert and oriented x 3. No acute neurological deficits. Speech is normal and follows commands. SKIN: Dry and warm. Triage Information Reviewed: Yes Vital Signs On Initial Exam: Initial Vitals Temp Pulse Resp BP Pulse Ox 98 F 152 18 123/75 95 06/25/19 17:42 06/25/19 17:42 06/25/19 17:42 06/25/19 17:42 06/25/19 17:42 Vital Signs Reviewed: Yes Procedures - Sedation Patient Received Moderate/Deep Sedation with Procedure: No Diagnostics - Vital Signs Vital Signs Temp Pulse Resp BP Pulse Ox 06/25/19 17:42 98 F 152 18 123/75 95 - Laboratory Result Diagrams: 06/25/19 17:51 06/25/19 17:51 Lab Statement: Any lab studies that have been ordered have been reviewed, and results considered in the medical decision making process. - Radiology Chest Xr Radiology Interpretation Completed By: ED Physician Summary of Radiographic Findings: CXR shows no acute pathology. An ED physician has reviewed and interpreted this report. Pending official read. - EKG 1738 Cardiac Rate: Other Rate - Afib 152 bpm EKG Rhythm: Atrial Fibrillation Summary of EKG Findings: EKG at 1738 shows atrial fibrillation at 152 bpm. RVR present. An ED physician has reviewed and interpreted this EKG. 1803 Cardiac Rate: Other Rate - afib 103 bpm EKG Rhythm: Atrial Fibrillation EKG Comparison: No Significant Change Summary of EKG Findings: EKG at 1803 shows atrial fibrillation at 103 bpm. Similar to EKG at 1738. An ED physician has reviewed and interpreted this EKG. Disposition - Course Assessment/Plan: 79-year-old male presents to the emergency room department with chief complaint of palpitations, slight shortness of breath. Denies any dizziness. Blood work without a significant abnormality except for the bases of 13.4, INR is 1.27, chloride 100, glucose 179, and BMP 197. In the ED course the patient was with a fibrillation with RVR. We obtained an IV access and place the patient in the software solutions architect. Patient was given Cardizem. At this time the patients heart rate is between 101 106 bpm. Patient is taking Eliquis for blood thinners. CXR impression: No acute pathology. After the patient was given medications the symptoms have resolved. The patient was having ranges between 60 and 80 beats per minute. He reports that HIS symptoms have resolved and he is asymptomatic. I discussed all the findings and test results with the patient. Patient was instructed to return to the emergency room immediately if any of the symptoms return worsens. Plan of care was discussed with the patient and understands and agrees. All questions were answered at patient satisfaction. There were no further complaints or concerns. Lung exam before discharge: CTA B/L. Good air exchange. No wheezing or crackles heard. CVS: S1 and S2 present. No murmurs appreciated. Patient is alert and oriented x 3. Patient is hemodynamically stable. Patient will be discharged home with follow up PCP in the next 2-3 days - Diagnoses Provider Diagnoses: Atrial fibrillation Discharge ED - Sign-Out/Discharge Documenting (check all that apply): Patient Departure - discharge - Discharge Plan Condition: Stable Disposition: HOME Patient Education Materials: A-fib (Atrial Fibrillation) (ED) Referrals: Primitivo Zapien MD [Primary Care Provider] - Additional Instructions: Follow up with your primary care provider in 2-3 days. Return to the emergency department if you experience new or worsening symptoms. - Billing Disposition and Condition Condition: STABLE Disposition: Home - Attestation Statements Document Initiated by Scribe: Yes Documenting Scribe: Amadeo Gregory Provider For Whom Valentine is Documenting (Include Credential): Ananth Knight MD. Scribe Attestation: Amadeo Esteban scribed for Ananth Knight MD. on 06/26/19 at 2116. Scribe Documentation Reviewed: Yes Provider Attestation: The documentation as recorded by the scribe, Amadeo Dittgen accurately reflects the service I personally performed and the decisions made by me, Ananth Knight MD. Status of Scribe Document: Viewed
[2019-06-25 18:09] LABS: Hematocrit 44 % (42-52); Hemoglobin 15.3 g/dL (14.0-18.0); Mean Corpuscular HGB Conc 35 g/dL (31-36); Mean Corpuscular Hemoglobin 34 pg (27-31); Mean Corpuscular Volume 98 fL (80-94); Mean Platelet Volume 7.7 fL (7.4-10.4); Platelet Count 246 10^3/uL (150-450); Red Blood Count 4.54 10^6 /uL (4.18-5.48); Red Cell Distribution Width 14 % (10-15); White Blood Count 13.4 10^3/uL (3.5-10.8)
[2019-06-25 18:22] LABS: Albumin/Globulin Ratio 1.5 (1-3); BUN/Creatinine Ratio 20.8 (8-20); Calcium 9.4 mg/dL (8.6-10.3); EGFR African American 81.5 (>60); EGFR Non-African American 67.4 (>60); Globulin 2.6 g/dL (2-4); Magnesium 2.1 mg/dL (1.9-2.7); Potassium 4.1 mmol/L (3.5-5.0); Total Bilirubin 0.5 mg/dL (0.2-1.0); Total Protein 6.6 g/dL (6.4-8.9)
[2019-06-25 18:26] LABS: INR 1.27 (0.82-1.09)
[2019-06-25 18:27] LABS: CKMB ng/mL 1.1 ng/mL (0.6-6.3)
[2019-06-25 18:31] LABS: ABS Basophils 0.1 10^3/ul (0-0.2); ABS Eosinophils 0.1 10^3/ul (0-0.6); ABS Lymphocytes 2.8 10^3/ul (1.0-4.8); ABS Neutrophils 9.4 10^3/ul (1.5-7.7); Eosinophil % 0.6 %
[2019-06-25 18:49] LABS: Troponin I 0.01 ng/mL (<0.04)
[2019-06-25 19:08] LABS: TSH (Thyroid Stimulating Horm) 2.56 mcIU/mL (0.34-5.60)
[2019-06-25 20:02] LABS: Urine Appearance Clear; Urine Bacteria Absent (Absent); Urine Bilirubin Negative (Negative); Urine Blood 2+ (Negative); Urine Color Straw; Urine Glucose Negative (Negative); Urine Ketones Negative (Negative); Urine Nitrite Negative (Negative); Urine Protein Negative (Negative); Urine Red Blood Cell 2+(6-10/hpf) (Absent); Urine Specific Gravity 1.006 (1.010-1.030); Urine Urobilinogen Negative (Negative); Urine White Blood Cell Trace(0-5/hpf) (Absent)
[2019-06-25] MEDS ORDERED: Diltiazem CD CAP* 120 MG PO ONE (20:23)
[2019-06-25 21:37] VITALS: BP 104/68
== END 2019-06-25 21:43 | disposition home or self-care (01) ==
LOC: ED 17:37
DX: I48.91 Unspecified atrial fibrillation (principal); R00.2 Palpitations; I25.10 Atherosclerotic heart disease of native coronary artery without angina pectoris; E78.00 Pure hypercholesterolemia, unspecified; K21.9 Gastro-esophageal reflux disease without esophagitis; Z85.46 Personal history of malignant neoplasm of prostate; Z79.899 Other long term (current) drug therapy
CPT/HCPCS: 36415; 71045; 80053; 81003; 81015; 82550; 82553; 83605; 83735; 83880; 84443; 84484; 85025; 85610; 85730; 87086; 93005; 96361; 96374; 99283

== ENCOUNTER 2019-07-28 11:15 | Emergency (ER) | payer MEDICARE, BC ==
--- OUTSIDE RECORDS SUMMARY | 2019-07-28 11:28 | XMS REPORT | Continuity of Care Document ---
:1940 External Reference #:[id number] Author Name Casey Stewart Care Team Providers Name Role Phone Primitivo Zapien MD - Family Medicine Care Team Information Engineering Test Specialist Problems Active Problems Provider Date Pure hypercholesterolemia [...] syndrome Taylor Monae DNP, RN, Onset: 07/08/2016 ADJUSTER ARBITRATOR- Insomnia Taylor Monae DNP, RN, Onset: 07/08/2016 ADJUSTER ARBITRATOR-BC Encounter for planned postprocedural Juarez Mccarty M.D., [facility], Onset: 2018 wound closure FSCAI Social History [...] CPT Code Status Date Vaccine Lot # [id number] Given 06/10/2016 Influenza Virus Vaccine, Quadrivalent, Split, [...] Test Result H/L Range Note Laboratory test [facility] Poc Activated 243 seconds 1 finding [address] Clotting Time [place], [place] [id number] [phone] Laboratory test [facility]oc Activated 235 seconds 2 finding [address] [place] [address] [phone] Laboratory test [facility] Poc Activated 219 seconds 3 finding [address] Clotting [place], [place] [address] [phone] Inr/Protime [facility] Inr 1.30 High 0.82-1.09 [address] [place] [address] [phone] Laboratory test [facility] Hemoglobin A1c 6.5 % High 4.0-5.6 5 finding [address] (Glyco HGB) [place], [place] [address] [phone] Cath Panel [facility] Partial Thrombo 44.1 seconds High 26.0-38.[address] Time PTT [place], [place] [address] [phone] CBC Auto Diff [facility] White Blood 7.3 10^3/uL Normal 3.5-10.[address] [place] [address] [phone] Red Blood Count 4.46 10^6/uL Normal 4.18-5.48 [...] Red Blood Cells % 0.1 Inr/Protime 05/04/2019 [facility] Inr 3.09 High 0.82-1.[address] [place] [address] [phone] Lipid Panel - 05/04/2019 [facility] Creatine 34 U/L Normal 10- [address] Kinase(CK) [place] [address] [phone] Comp Metabolic 05/04/2019 [facility] Sodium 140 Normal 135- [address] mmol/[place] [address] [phone] Potassium 4.6 mmol/L Normal 3.5-5.0 Chloride 105 [...] Egfr 89.3 >60 7 Lipid Profile 05/04/2019 [facility] Triglycerides 181 mg/dL 8 (Trig/Chol/HDL) [address] [place] [address] [phone] Cholesterol 113 mg/dL 9 HDL Cholesterol 33.7 mg/dL 10 LDL Cholesterol 43 mg/dL 11 1 Egg Grader: [id number] Reference Range: 74-125 seconds 2 Egg Grader: [id number] Reference Range: 74-125 seconds 3 Egg Grader: [id number] Reference Range: 74-125 seconds 4 Standard intensity warfarin therapeutic range: 2.0-3.0 High intensity warfarin therapeutic range: 2.5-3.5 5 Therapeutic target for the treatment of diabetes mellitus patients is <7% HBA1C, and in selective patients <6.0%. Please refer to [place] [employer] diabetic care guidelines for further [...] >189 Procedures Date Code Description Status 05/12/2019 48624 EKG Tracing & Interpretation Completed 05/08/2019 07260 EKG, Interpretation Only Completed 05/07/2019 59311 Coronary Angiography With Catheter Placement In Bpyass Completed Grafts 05/07/2019 66102 EKG, Interpretation Only Completed 05/07/2019 20370 Intravascular Ultrasound (Coron) Completed 05/07/2019 15495 Percutaneous Transcatheter Placement Of Intracoronary Completed Stent 01/26/2019 62471 EKG Tracing & Interpretation Completed Medical Devices Description No Information Available Encounters Type Date Location Provider Dx Diagnosis Office Visit 05/24/2019 [facility] Leanne Florence, 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 05/24/2019 E78.00 Pure hypercholesterolemia, Leanne Florence, N.P. unspecified 05/24/2019 I49.5 Sick sinus syndrome Leanne Florence, N.P. 05/24/2019 I48.0 Paroxysmal atrial fibrillation Leanne Florence, N.P. 05/12/2019 Z48.812 Encounter for surgical aftercare Juarez Mccarty M.D., [facility] , [facility] following surgery on the circulatory system 05/12/2019 I25.10 Atherosclerotic heart disease of Juarez Mccarty M.D., [facility], [facility] [place] coronary artery with 05/12/2019 Z95.1 Presence of aortocoronary bypass Juarez Mccarty M.D., [facility], [facility] graft 05/08/2019 I25.10 Atherosclerotic heart disease of Jose Luis Gaines MD, LOLA, [place] coronary artery without [facility] angina pectoris 05/08/2019 Z95.5 Presence of coronary angioplasty Jose Luis Gaines MD, FACC , implant and graft [facility] 05/08/2019 E11.9 Type 2 diabetes mellitus without Jose Luis Gaines MD, LOLA , complications [facility] 05/08/2019 I10 Essential (primary) hypertension Jose Luis Gaines MD, FACC, [facility] 05/07/2019 I25.10 Atherosclerotic heart disease of Jose Luis Gaines MD, FACC, [place] coronary artery without [facility] angina pectoris 05/07/2019 Z95.1 Presence of aortocoronary bypass Jose Luis Gaines MD, LOLA , graft [facility] 01/26/2019 I48.0 Paroxysmal atrial fibrillation Singh Lo M.D. 01/26/2019 I10 Essential (primary) hypertension Singh Lo M.D. 01/26/2019 E78.00 Pure hypercholesterolemia, Singh Lo M.D. unspecified 01/26/2019 I25.10 Atherosclerotic heart disease of Singh Lo M.D. [place] coronary artery with 01/26/2019 I49.5 Sick sinus syndrome Singh Lo M.D. 01/26/2019 R53.83 Other fatigue Singh Lo M.D. 01/01/2019 G47.33 Obstructive sleep apnea (adult) Taylor Monae DNP, RN, (pediatric) [facility] 01/01/2019 R35.1 Nocturia Taylor Monae DNP, RN, [facility] 01/01/2019 G47.01 Insomnia due to medical condition Taylor Monae DNP, RN , [facility]- Plan of Treatment Future Appointment(s):08/25/2019 11:40 am - Singh Lo M.D. at [facility]05/24/2019 - Leanne lForence N.P.I25.10 Atherosclerotic heart disease of [place] coronary artery withNew Therapy:Cardiac RehabFollow up:3mo OV JFMRecommendations:Try to have diet soda or coffee in your chair to see if that helps At the end of May stop ASA. Continue brilinta and eliquis.I10 Essential (primary) lywgwcqdqmbbW60.00 Pure hypercholesterolemia, xmdzcgtbquhS85.5 Sick sinus jtbangpkX80.0 Paroxysmal atrial fibrillationNew Medication:Eliquis 5 mg - 1 by mouth twice a dayRecommendations:Once you pickle sorter eliquis call our office. Plan: Stop warfarin 2-3 days later have INR check at [facility] When INR < 2.0 start eliquis. Functional Status Description No Information Available Mental Status Description No Information Available Referrals Description No Information Available
--- OUTSIDE RECORDS SUMMARY | 2019-07-28 11:28 | XMS REPORT | Continuity of Care Document ---
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 Problems Active Problems Provider Date Pure hypercholesterolemia [...] syndrome Taylor Monae DNP, RN, Onset: 07/08/2016 STATION CAPTAIN-BC Insomnia Taylor Monae DNP, RN, Onset: 07/08/2016 STATION CAPTAIN-BC Encounter for planned postprocedural Juarez Mccarty M.D., [facility], Onset: 2018 wound [facility] Social History Type Date Description Comments Sex Unknown Tobacco Use Start: Unknown Never Smoked Cigarettes Smoking Status Reviewed: 07/02/19 Never Smoked Cigarettes ETOH Use Denies alcohol [...] Medications SIG Qnty Indications Ordering Date Provider Eliquis 1 by mouth twice a 90tabs I48.0 Leanne Florence, 05/24/2019 5mg Tablets day N.P. Brilinta 1 tab by mouth 180tabs Leanne Florence, 05/11/2019 90mg Tablets twice a day N.P. Praluent 1 injection sc 2ml E78.00 Singh Priest 11/13/2018 75mg/ml every 2 weeks (not Aditi Lo Solution Pen-Inject started yet 01/01/19) Potassium Chloride 2 by mouth every 180tabs I48.0 Leanne Florence, 2018 ER day N.P. 20Meq Tablets ER Dilt-XR 1 by mouth every 90caps I48.0 Singh Priest 10/29/2018 120mg Caps ER day Aditi Lo 24HR Co-Enzyme Q-10 1 by mouth every 60caps Singh Priest 07/29/2017 200mg day Aditi Lo Capsules Lovaza take 1 capsule Unknown 04/10/2016 1gm Capsules twice a day Vitamin D 1 capsule by mouth Singh [...] M.D., 03/23/2015 Tetrofosmin, Per Unit Dose FACC, FASAMBER Up To 40 Millicuries Injection Immunizations CPT Code Status Date Vaccine Lot # [id number] Given 06/10/2016 Influenza Virus Vaccine, Quadrivalent, Split, Preservative Free Vital Signs Date Vital Result Comment 07/02/2019 9:34am Height 70 inches 5'10" Weight 173.00 lb Heart Rate 76 /min BP Systolic Sitting 122 mmHg Lue regular cuff BP Diastolic Sitting 80 mmHg Lue regular cuff Respiratory Rate 16 /min O2 % BldC Oximetry 95 % BMI (Body Mass Index) 24.8 kg/m2 07/02/2019 8:26am Height 70 inches 5'10" Weight 173.00 lb with shoes Heart Rate 88 /min radial,regular BP Systolic Sitting 124 mmHg Ra, reg cuff BP Diastolic Sitting 76 mmHg Ra, reg cuff BP Systolic Standing 120 mmHg Ra, reg cuff BP Diastolic Standing 70 mmHg Ra, reg cuff BMI (Body Mass Index) 24.8 kg/m2 Ejection Fraction 60%-65% echo 07/12/18 Results Test Date Facility Test Result H/L Range Note Laboratory test [facility] Poc Activated 243 seconds 1 finding [address] Clotting Time [place], [place] [address] [phone] Laboratory test [facility] Poc Activated 235 seconds 2 finding [address] Clotting Time [place], [place] [address] [phone] Laboratory test [facility] Poc Activated 219 seconds 3 finding [address] Clotting Time [place], [place] [address] [phone] Inr/Protime [facility] Inr 1.30 High 0.82-1.09 [address] [place], [place] [address] [phone] Laboratory test [facility] Hemoglobin A1c 6.5 % High 4.0-5.6 5 finding [address] (Glyco HGB) [place], [place] [address] [phone] Cath Panel [facility] Partial Thrombo 44.1 seconds High 26.0-38.[address] Time PTT [place], [place] 477[address]33 [phone] CBC Auto Diff [facility] White Blood 7.3 10^3/uL Normal 3.5-10.[address] [place] [address] [phone] Red Blood Count 4.46 10^6/uL Normal 4.18-5.48 [...] Red Blood Cells % 0.1 Inr/Protime 05/04/2019 [facility] Inr 3.09 High 0.82-1.[address] [place] [address] [phone] Lipid Panel - 05/04/2019 [facility] Creatine 34 U/L Normal 10- [address] Kinase(CK) [place] [address] [phone] Comp Metabolic 05/04/2019 [facility] Sodium 140 Normal 135- [address] mmol/[place] [address] [phone] Potassium 4.6 mmol/L Normal 3.5-5.0 Chloride 105 [...] Egfr 89.3 >60 7 Lipid Profile 05/04/2019 [facility] Triglycerides 181 mg/dL 8 (Trig/Chol/HDL) [address] [place] [address] [phone] Cholesterol 113 mg/dL 9 HDL Cholesterol 33.7 mg/dL 10 LDL Cholesterol 43 mg/dL 11 1 Dock Operator: [id number] Reference Range: 74-125 seconds 2 Dock Operator: [id number] Reference Range: 74-125 seconds 3 Dock Operator: [id number] Reference Range: 74-125 seconds 4 Standard intensity warfarin therapeutic range: 2.0-3.0 High intensity warfarin therapeutic range: 2.5-3.5 5 Therapeutic target for the treatment of diabetes mellitus patients is <7% HBA1C, and in selective patients <6.0%. Please refer to [place] Diabetes [employer] diabetic care guidelines for further [...] High: >189 Procedures Date Code Description Status 07/02/2019 78037 EKG Tracing & Interpretation Completed 05/12/2019 33474 EKG Tracing & Interpretation Completed 05/08/2019 29278 EKG, Interpretation Only Completed 05/07/2019 47422 Coronary Angiography With Catheter Placement In Bpyass Completed Grafts 05/07/2019 27569 EKG, Interpretation Only Completed 05/07/2019 16313 Intravascular Ultrasound (Coron) Completed 05/07/2019 15555 Percutaneous Transcatheter Placement Of Intracoronary Completed Stent 01/26/2019 62910 EKG Tracing & Interpretation Completed Medical Devices Description No Information Available Encounters Type Date Location Provider Dx Diagnosis Office Visit 05/24/2019 [facility] Leanne Florence, 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- 07/02/2019 I10 Essential (primary) hypertension Leanne Florence, N.P. 07/02/2019 E78.00 Pure hypercholesterolemia, Leanne Florence, N.P. unspecified 07/02/2019 I49.5 Sick sinus syndrome Leanne Florence, N.P. 07/02/2019 I48.0 Paroxysmal atrial fibrillation Leanne Florence, N.P. 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 [place] coronary artery with 05/24/2019 I10 Essential (primary) hypertension Leanne Florence, N.P. 05/24/2019 E78.00 Pure hypercholesterolemia, Leanne Florence, N.P. unspecified 05/24/2019 I49.5 Sick sinus syndrome Leanne Florence, N.P. 05/24/2019 I48.0 Paroxysmal atrial fibrillation Leanne Florence, N.P. 05/12/2019 Z48.812 Encounter for surgical aftercare Juarez Mccarty M.D., [facility] , [facility] following surgery on the circulatory system 05/12/2019 I25.10 Atherosclerotic heart disease of Juarez Mccarty M.D., [facility], [facility] picayune coronary artery with 05/12/2019 Z95.1 Presence of aortocoronary bypass Juarez Mccarty M.D., [facility], FSCAI graft 05/08/2019 I25.10 Atherosclerotic heart disease of Jose Luis Gaines MD, FACC, [place] coronary artery without [facility] angina pectoris 05/08/2019 Z95.5 Presence of coronary angioplasty Jose Luis Gaines MD, LOLA , implant and graft [facility] 05/08/2019 E11.9 Type 2 diabetes mellitus without Jose Luis Gaines MD, FACC , complications FSCAI 05/08/2019 I10 Essential (primary) hypertension Jose Luis Gaines MD, FACC, FSCAI 05/07/2019 I25.10 Atherosclerotic heart disease of Jose Luis Gaines MD, FACC, [place] coronary artery without [facility] angina pectoris 05/07/2019 Z95.1 Presence of aortocoronary bypass Jose Luis Gaines MD, FACC , graft [facility] 01/26/2019 I48.0 Paroxysmal atrial fibrillation Singh Lo M.D. 01/26/2019 I10 Essential (primary) hypertension Singh Lo M.D. 01/26/2019 E78.00 Pure hypercholesterolemia, Singh Lo M.D. unspecified 01/26/2019 I25.10 Atherosclerotic heart disease of Singh Lo M.D. [place] coronary artery with 01/26/2019 I49.5 Sick sinus syndrome Singh Lo M.D. 01/26/2019 R53.83 Other fatigue Singh Lo M.D. 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 at [facility]07/02/2019 - Taylor Monae DNP RN, STATION CAPTAIN-[facility].33 Obstructive sleep apnea (adult) (pediatric)New Orders:Sleep Study, Ordered: Follow up:2 monthsRecommendations:Continue PAP device, Benefitting and compliant with treatment. Cleaning Wipe off mask daily (baby wipe-no scent, or warm water) Clean mask, tubing, filter, and water chamber weekly in mild no scent dish soap and water. Hang to dry. If you have any sleepiness while driving you MUST avoid operating a vehicle or machinery. If you have difficulty with your equipment, or need to replace your mask or hoses, please contact your homecare agency. A weight change of 20 pounds or more may have an effect onyour equipment; if you are experiencing problems please call for an appointment. If you have any further questions, please call the [facility] at .G63.52 Unspecified hearing loss, left earComments:On CPAP auto setting 6- 9 cmReferral:Singh Lin MD, OtolaryngologyRecommendations:Most likely the buccal swelling on left side is not related Due to your concerns about the sudden loss of hearing, recommend evaluation by cpr instructor. Functional Status Description No Information Available Mental Status Description No Information Available Referrals Refer to Reason for Referral Status Appt Date Kristin Butler MD pAF symptomatic eval for ablation Created [address] [place] [address] [phone] Singh Lin MD Pt complains of sudden hearing loss left ear Created 2-weeks ago On CPAP auto [address] [place] [address] [phone]
--- OUTSIDE RECORDS SUMMARY | 2019-07-28 11:28 | XMS REPORT | Continuity of Care Document ---
:1940 External Reference #:[id number] Author Name Leanne Florence N.P. (transmitted by agent of provider Jeana Mcfadden) Address [address] [place] [address] Care Team Providers Name Role Phone Primitivo Zapien MD - Family Medicine Care Team Information Field Sales Engineer [phone] Problems Active Problems Provider Date Pure hypercholesterolemia [...] syndrome Taylor Monae DNP, RN, Onset: 07/08/2016 [facility] Insomnia Taylor Monae DNP, RN, Onset: 07/08/2016 [employer] Encounter for planned postprocedural Juarez Mccarty M.D., [facility], Onset: 2018 wound closure [facility] Social History Type Date Description [...] CPT Code Status Date Vaccine Lot # [id number] Given 06/10/2016 Influenza Virus Vaccine, Quadrivalent, Split, Preservative Free Vital Signs Date Vital Result Comment 07/02/2019 8:26am Height 70 inches 5'10" Weight 173.00 lb with shoes Heart Rate 88 /min radial,regular BP Systolic Sitting 124 mmHg Ra, reg cuff BP Diastolic Sitting 76 mmHg Ra, reg cuff BP Systolic Standing 120 mmHg Ra, reg cuff BP Diastolic Standing 70 mmHg Ra, reg cuff BMI (Body Mass Index) 24.8 kg/m2 Ejection Fraction 60%-65% echo 07/12/18 05/24/2019 9:18am Height 70 inches 5'10" Weight 173.38 lb with shoes Heart Rate 74 /min radial, regular BP Systolic Sitting 138 mmHg Ra, reg cuff BP Diastolic Sitting 76 mmHg Ra, reg cuff BP Systolic Standing 120 mmHg Ra, reg cuff BP Diastolic Standing 76 mmHg Ra, reg cuff BMI (Body Mass Index) 24.9 kg/m2 Ejection Fraction 60%-65% echo 07/12/18 Results Test Date Facility Test Result H/L Range Note Laboratory test [facility] Activated 243 seconds 1 finding [address] Clotting Time [place], [place] [id number] [phone] Laboratory test [facility] Activated 235 seconds 2 finding [address] Clotting Time [place], [place] [id number] [phone] Laboratory test [facility] Activated 219 seconds 3 finding [address] Clotting [place], [place] [id number] [phone] Inr/Protime [facility] Inr 1.30 High 0.82-1.09 [address] [place] [address] [phone] Laboratory test [facility] Hemoglobin A1c 6.5 % High 4.0-5.6 5 finding [address] (Glyco HGB) [place] [address] [phone] Cath Panel [facility] Partial Thrombo 44.1 seconds High 26.0-38.[address] Time PTT [place], [place] [id number] [phone] CBC Auto Diff [facility] White Blood 7.3 10^3/uL Normal 3.5-10.[address] [place] [address] [phone] Red Blood Count 4.46 10^6/uL Normal 4.18-5.48 [...] Red Blood Cells % 0.1 Inr/Protime 05/04/2019 [facility] Inr 3.09 High 0.82-1.[address] [place] [address] [phone] Lipid Panel - 05/04/2019 [facility] Creatine 34 U/L Normal 10- [address] Kinase(CK) [place] [address] [phone] Comp Metabolic 05/04/2019 [facility] Sodium 140 Normal 135- [address] mmol/[place] [address] [phone] Potassium 4.6 mmol/L Normal 3.5-5.0 Chloride 105 [...] Egfr 89.3 >60 7 Lipid Profile 05/04/2019 [facility] Triglycerides 181 mg/dL 8 (Trig/Chol/HDL) [address] [place] [address] [phone] Cholesterol 113 mg/dL 9 HDL Cholesterol 33.7 mg/dL 10 LDL Cholesterol 43 mg/dL 11 1 [employer] Operator: [id number] Reference Range: 74-125 seconds 2 [employer] Operator: [id number] Reference Range: 74-125 seconds 3 [employer] Operator: [id number] Reference Range: 74-125 seconds 4 Standard intensity warfarin therapeutic range: 2.0-3.0 High intensity warfarin therapeutic range: 2.5-3.5 5 Therapeutic target for the treatment of diabetes mellitus patients is <7% HBA1C, and in selective patients <6.0%. Please refer to [place] [employer] diabetic care guidelines for further [...] >189 Procedures Date Code Description Status 07/02/2019 67288 EKG Tracing & Interpretation Completed 05/12/2019 42056 EKG Tracing & Interpretation Completed 05/08/2019 88550 EKG, Interpretation Only Completed 05/07/2019 74182 Coronary Angiography With Catheter Placement In Bpyass Completed Grafts 05/07/2019 92418 EKG, Interpretation Only Completed 05/07/2019 26391 Intravascular Ultrasound (Coron) Completed 05/07/2019 24437 Percutaneous Transcatheter Placement Of Intracoronary Completed Stent 01/26/2019 82844 EKG Tracing & Interpretation Completed Medical Devices Description No Information Available Encounters Type Date Location Provider Dx Diagnosis Office Visit 05/24/2019 [facility] Leanne Florence, 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 inupiat coronary artery with 07/02/2019 I10 Essential (primary) hypertension Leanne Florence, N.P. 07/02/2019 E78.00 Pure hypercholesterolemia, Leanne Florence, N.P. unspecified 07/02/2019 I49.5 Sick sinus syndrome Leanne Florence, N.P. 07/02/2019 I48.0 Paroxysmal atrial fibrillation Leanne Florence, N.P. 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 inupiat coronary artery with 05/24/2019 I10 Essential (primary) hypertension Leanne Florence, N.P. 05/24/2019 E78.00 Pure hypercholesterolemia, Leanne Florence, N.P. unspecified 05/24/2019 I49.5 Sick sinus syndrome Leanne Florence, N.P. 05/24/2019 I48.0 Paroxysmal atrial fibrillation Leanne Florence, N.P. 05/12/2019 Z48.812 Encounter for surgical aftercare Juarez Mccarty M.D., [facility] , [facility] following surgery on the circulatory system 05/12/2019 I25.10 Atherosclerotic heart disease of Juarez Mccarty M.D., [facility], [facility] inupiat coronary artery with 05/12/2019 Z95.1 Presence of aortocoronary bypass Juarez Mccarty M.D., [facility], [facility] graft 05/08/2019 I25.10 Atherosclerotic heart disease of Jose Luis Gaines MD, FACC, inupiat coronary artery without [facility] angina pectoris 05/08/2019 Z95.5 Presence of coronary angioplasty Jose Luis Gaines MD, LOLA , implant and graft [facility] 05/08/2019 E11.9 Type 2 diabetes mellitus without Jose Luis Gaines MD, FACC , complications [facility] 05/08/2019 I10 Essential (primary) hypertension Jose Luis Gaines MD, FACC, [facility] 05/07/2019 I25.10 Atherosclerotic heart disease of Jose Luis Gaines MD, FACC, inupiat coronary artery without [facility] angina pectoris 05/07/2019 Z95.1 Presence of aortocoronary bypass Jose Luis Gaines MD, FACC , graft [facility] 01/26/2019 I48.0 Paroxysmal atrial fibrillation Singh Lo M.D. 01/26/2019 I10 Essential (primary) hypertension Singh Lo M.D. 01/26/2019 E78.00 Pure hypercholesterolemia, Singh Lo M.D. unspecified 01/26/2019 I25.10 Atherosclerotic heart disease of Singh Lo M.D. inupiat coronary artery with 01/26/2019 I49.5 Sick sinus syndrome Singh Lo M.D. 01/26/2019 R53.83 Other fatigue Singh Lo M.D. 01/01/2019 G47.33 Obstructive sleep apnea (adult) Taylor Monae DNP, RN, (pediatric) [facility] 01/01/2019 R35.1 Nocturia Taylor Monae DNP, RN, [facility] 01/01/2019 G47.01 Insomnia due to medical condition Taylor Monae DNP, RN , [facility] Plan of Treatment Future Appointment(s):08/25/2019 11:40 am - Singh Lo M.D. at [facility]07/02/2019 - Leanne Florence, N.P.I25.10 Atherosclerotic heart disease of inupiat coronary artery withI10 Essential (primary) kqalvcfouqqoR16.00 Pure hypercholesterolemia, vpbvfntvzmwM99.5 Sick sinus gnmbgrtoM32.0 Paroxysmal atrial fibrillationReferral:Kristin Butler MD, Cardiac ElectrophyslgyFollow up:08/2019 OV JFMRecommendations:Continue current meds. I will discuss with dr lo adding medicines to help keep you in the regular rhythm Functional Status Description No Information Available Mental Status Description No Information Available Referrals Refer to Reason for Referral Status Appt Date Kristin Butler MD pAF symptomatic eval for ablation Created [address] [place] [address] [phone]
--- OUTSIDE RECORDS SUMMARY | 2019-07-28 11:28 | XMS REPORT | Continuity of Care Document ---
:1940 External Reference #:[id number] Author Name Primitivo Zapien M.D. Address [address] [place] [address] Care Team Providers Name Role Phone Singh Lo MD - Cardiovascular Care Team Information Seismic Prospecting Observer Helper [phone] [facility] - Sleep Disorder Care Team Information Seismic Prospecting Observer Helper Diagnostic Rc Yadav - Urology Care Team Information Seismic Prospecting Observer Helper [phone] [facility] Utilization Lone Lead Lineman Care Team Information Seismic Prospecting Observer Helper - Health Educator Lenore White - Cardiovascular Care Team Information Seismic Prospecting Observer Helper [phone] Disease Singh Lin MD - Otolaryngology Care Team Information Seismic Prospecting Observer Helper [phone] Problems Active Problems Provider Date Coronary arteriosclerosis [...] M.D. Onset: 11/04/2016 Abnormal glucose level Primitivo aZpien M.D. Onset: 10/17/2017 Other insomnia Primitivo Zapien M.D. Onset: 04/13/2018 Type 2 diabetes mellitus Primitivo Zapien M.D. Onset: 10/26/2018 Acute bronchitis Primitivo aZpien M.D. Onset: 10/26/2018 Combined form of senile cataract Primitivo Zapien M.D. Onset: 04/10/2019 Mixed hyperlipidemia Primitivo Zapien M.D. Onset: 04/10/2019 Encounter for other preprocedural Primitivo Zapien M.D. Onset: 04/10/2019 examination Melena Primitivo Zapien M.D. Onset: 06/08/2019 Hearing loss Primitivo Zapien M.D. Onset: 06/08/2019 Sensorineural hearing loss, bilateral Primitivo Zapien M.D. Onset: 2018 Social History Type Date Description Comments Sex [...] CPT Code Status Date Vaccine Lot # [id number] Given 05/29/2019 High-Dose, Influenza Virus Vacccine-fluzone 65 [id number] and older 83211 Given 10/02/2018 Zoster (Shingles) Vaccine (HZV), Recombinant, Subunit, Adjuvanted 98541 Given 06/15/2018 Zoster (Shingles) Vaccine (HZV), Recombinant, Subunit, Adjuvanted 68451 Given 05/25/2018 High-Dose, Influenza Virus Vacccine-fluzone 65 [id number] and older 34255 Given 06/05/2017 High-Dose, Influenza Virus Vacccine-fluzone 65 [id number] and older 54708 Given 05/27/2016 High-Dose, Influenza Virus Vacccine-fluzone 65 and older 91591 Given 05/27/2016 High-Dose, Influenza Virus Vacccine-fluzone 65 [id number] and older 38919 Given 06/24/2015 Influenza Vac, Quadrivalent, Slit Virus, Im [id number] 72524 Given 02/07/2015 Pneumococcal Conjugate Vacc-13 [id number] 32024 Given 06/18/2014 High-Dose, Influenza Virus Vacccine-fluzone 65 [id number] and older Q2038 Given 06/19/2013 Split Influenza Medicare: Fluzone [id number] 94416 Given 06/05/2012 High-Dose, Influenza Virus Vacccine-fluzone 65 [id number] and older 63037 Given 04/16/2012 Zostivax [id number] 83247 Given 04/16/2012 Tdap Tetanus, W Pertussis [id number] 30998 Given 06/22/2011 High-Dose, Influenza Virus Vacccine-fluzone 65 [id number] and older 75411 Given 06/08/2010 DO Not Use Split Influenza Virus Vaccine [id number] 18959 Given 08/16/2009 DO Not Use Split Influenza Virus Vaccine [id number] 93871 Given 06/25/2008 DO Not Use Split Influenza Virus Vaccine [id number] 96007 Given 07/25/2007 DO Not Use Split Influenza Virus Vaccine [id number] 34288 Given 07/26/2006 DO Not Use Split Influenza Virus Vaccine [id number] 14706 Given 06/27/2005 DO Not Use Split Influenza Virus Vaccine 38890 Given 06/20/2003 Pneumococcal Immunization 90327 Given 06/20/2003 Pneumococcal Immunization 50124 Given 06/08/2003 DO Not Use Split Influenza Virus Vaccine 12048 Given 06/08/2003 DO Not Use Split Influenza Virus Vaccine 19509 Given 07/09/2002 DO Not Use Split Influenza Virus Vaccine 39529 Given 08/28/2001 Influenza Immunization 31055 Given 08/28/2001 DO Not Use Split Influenza Virus Vaccine 78120 Given 07/14/2000 DO Not Use Split Influenza Virus Vaccine 41826 Given 07/11/1999 DO Not Use Split Influenza Virus Vaccine 33000 Given 07/17/1998 Influenza Immunization 85776 Given 04/13/1997 Td Immunization, For Use In Individuals 7 Years Or Older Vital Signs Date Vital Result Comment 07/09/2019 5:08pm BP Systolic 108 mmHg BP Diastolic 82 mmHg Heart Rate 69 /min Body Temperature 97.9 F Respiratory Rate 12 /min Height 70 inches 5'10" per pt Weight 173.00 lb BMI (Body Mass Index) 24.8 kg/m2 06/08/2019 5:15pm BP Systolic 130 mmHg BP Diastolic 78 mmHg Heart Rate 64 /min Body Temperature 97.5 F Respiratory Rate 20 /min Weight 174.00 lb Results Test Date Facility Test Result H/L Range Note Laboratory test 06/25/[address] [facility] Lactic Acid 1.4 mmol/L Normal 0.5-2.0 1 finding CBC Auto Diff 06/25/[address] [facility] White Blood 13.4 10^3/uL High 3.5-10.8 Count Red Blood Count 4.54 10^6/uL Normal 4.18-5.48 Hemoglobin 15.3 g/dL Normal 14.0-18.0 Hematocrit 44 % Normal 42-52 Mean Corpuscular Volume 98 fL High 80-94 Mean Corpuscular Hemoglobin 34 pg High 27-31 Mean Corpuscular HGB Conc 35 g/dL Normal 31-36 Red Cell Distribution Width 14 % Normal 10-15 Platelet Count 246 10^3/uL Normal 150-450 Mean Platelet Volume 7.7 fL Normal 7.4-10.4 Abs Neutrophils 9.4 10^3/uL High 1.5-7.7 Abs Lymphocytes 2.8 10^3/uL Normal 1.0-4.8 Abs Monocytes 1.0 10^3/uL High 0-0.8 Abs Eosinophils 0.1 10^3/uL Normal 0-0.6 Abs Basophils 0.1 10^3/uL Normal 0-0.2 Abs Nucleated RBC 0.0 10^3/uL Granulocyte % 70.5 % Lymphocyte % 21.0 % Monocyte % 7.5 % Eosinophil % 0.6 % Basophil % 0.4 % Nucleated Red Blood Cells % 0.0 Laboratory test 06/25/[address] [facility] B-Type Natriuretic 197 pg/mL High <=100 finding Peptide BNP Inr/Protime 06/25/[address] [facility] Inr 1.27 High 0.82-1.09 2 Laboratory test 06/25/[address] [facility] Partial Thrombo 33.0 seconds Normal 26.0- 38.0 finding Time PTT Comp Metabolic 06/25/[address] [facility] Sodium 135 mmol/L Normal 135-145 Panel Potassium 4.1 mmol/L Normal 3.5-5.0 Chloride 100 mmol/L Low 101-111 Co2 Carbon Dioxide 29 mmol/L Normal 22-32 Anion Gap 6 mmol/L Normal 2-11 Glucose 179 mg/dL High 70-100 Blood Urea Nitrogen 22 mg/dL Normal 6-24 Creatinine 1.06 mg/dL Normal 0.67-1.17 BUN/Creatinine Ratio 20.8 High 8-20 Calcium 9.4 mg/dL Normal 8.6-10.3 Total Protein 6.6 g/dL Normal 6.4-8.9 Albumin 4.0 g/dL Normal 3.2-5.2 Globulin 2.6 g/dL Normal 2-4 Albumin/Globulin Ratio 1.5 Normal 1-3 Total Bilirubin 0.50 mg/dL Normal 0.2-1.0 Alkaline Phosphatase 53 U/L Normal 34-104 Alt 18 U/L Normal 7-52 Ast 13 U/L Normal 13-39 Egfr Non- 67.4 >60 Egfr 81.5 >60 3 Laboratory test finding 06/25/[address] [facility] Magnesium 2.1 mg/dL Normal 1.9- 2.7 Creatine Kinase(CK) 18 U/L Normal 10-223 CKMB 06/25/[address] [facility] CKMB ng/mL 1.1 ng/mL Normal 0.6-6.3 Laboratory test finding 06/25/[address] [facility] Troponin I 0.01 ng/mL <0.04 4 TSH (Thyroid Stim Horm) 2.56 mcIU/mL Normal 0.34-5.60 Urinalysis Profile 06/25/[address] [facility] Urine Color Straw Urine Appearance Clear Urine Specific [place] 1.006 Low 1.010-1.030 Urine pH 6.0 Normal 5-9 Urine Urobilinogen Negative Negative Urine Ketones Negative Negative Urine Protein Negative Negative Urine Leukocytes Negative Negative Urine Blood 2+ Abnormal Negative Urine Nitrite Negative Negative Urine Bilirubin Negative Negative Urine Glucose Negative Negative Urine White Blood Cell Trace(0-5/hpf) Absent Urine Red Blood Cell 2+(6-10/hpf) Abnormal Absent Urine Bacteria Absent Absent Urine Culture And 06/25/[address] [facility] Urine Culture SEE RESULT 5 Sensitivities BELOW Ict Hemoccult (Fma) 06/16/2019 [facility] Ict Hemoccult (1) 06/08/19 Neg. (607)- - Ict Hemoccult-(2) 06/09/19 Neg. Ict-Hemoccult (3) 06/11/19 Neg. Laboratory test 06/08/2019 [facility] Hematocrit 41.4 % 35.0-50.0 finding (607)- - (Fma/CMC/CTX) CBC Auto Diff 06/06/[address] [facility] White Blood Count 9.0 Normal 3.5-10.8 10^3/uL Red Blood Count 4.47 10^6/uL Normal 4.18-5.48 [...] Red Blood Cells % 0.0 Inr/Protime 06/06/[address] [facility] Inr 1.26 High 0.82-1.09 6 Laboratory test finding 06/06/[address] [facility] Lactic Acid 0.9 mmol/L Normal 0.5- 2.0 7 Comp Metabolic Panel 06/06/[address] [facility] Sodium 140 mmol/L Normal 135-145 Potassium 3.8 [...] Egfr Non- 70.5 >60 Egfr 85.2 >60 8 Laboratory test 06/06/[address] [facility] Troponin I 0.01 ng/mL <0.04 9 finding Laboratory test 05/28/2019 [facility] Inr (Fma) 1.3 Low 2.0-3.0 finding (607)- - Laboratory test 05/24/2019 [facility] Inr (Fma) 2.4 2.0-3.0 finding (607)- - Laboratory test 05/07/[address] [facility] Hemoglobin A1c 6.5 % High 4.0-5.6 10 finding (Glyco HGB) Inr/Protime 05/07/[address] [facility] Inr 1.30 High 0.82-1.09 11 Laboratory test 05/07/[address] [facility] Poc Activated 219 seconds 12 finding Clotting Time Laboratory test 05/07/[address] [facility] Poc Activated 235 seconds 13 finding Clotting Time Laboratory test 05/07/[address] [facility] Poc Activated 243 seconds 14 finding Clotting Time CBC Auto Diff 05/04/[address] [facility] White Blood 7.3 10^3/uL Normal 3.5-10.8 Count Red Blood Count 4.46 10^6/uL Normal [...] Cells % 0.1 Comp Metabolic Panel 05/04/[address] [facility] Sodium 140 mmol/L Normal 135-145 Potassium 4.6 [...] Non- 73.8 >60 Egfr 89.3 >60 15 Lipid Profile (Trig/Chol/HDL) 05/04/[address] [facility] Triglycerides 181 mg/dL 16 Cholesterol 113 mg/dL 17 HDL Cholesterol 33.7 mg/dL 18 LDL Cholesterol 43 mg/dL 19 Laboratory test 05/04/[address] [facility] Creatine 34 U/L Normal 10-223 finding Kinase(CK) Inr/Protime 05/04/[address] [facility] Inr 3.09 High 0.82-1.09 20 Laboratory test 05/04/[address] [facility] Partial Thrombo 44.1 High 26.0-38.0 finding Time PTT seconds Laboratory test 04/28/[address] [facility] Point of Care 124 mg/dL High 70-100 21 finding Glucose Laboratory test 04/22/2019 [facility] Inr (Fma) 2.4 2.0-3.0 finding (607)- - Laboratory test 04/21/[address] [facility] Point of Care 134 mg/dL High 70-100 22 finding Glucose Lipid Profile 04/10/2019 [place](fma) Cholesterol 117 mg/dL Low 120-200 23 Triglycerides 166 mg/dL 30-200 HDL Cholesterol 34 mg/dL 30-70 LDL (Calculated) 50 CALC 0-129 VLDL Cholesterol 33 mg/dL 0-50 HDL Risk Factor 3.4 CALC 0.0-4.4 Laboratory test finding 04/10/2019 [facility](fma) TSH 2.52 mIU/L 0.50-6.00 CK 49 U/L 38-174 Laboratory test 03/22/2019 [facility] Inr (Fma) 2.2 2.0-3.0 finding (607)- - Ict-Hemoccult 02/26/2019 [facility] Ict Hemoccult (1) 02/20/19 Neg. (MCR)Fma Screeni (607)- - Ict Hemoccult-(2) 02/22/16 Neg. Ict-Hemoccult (3) 02/22/19 Neg. Laboratory test 02/19/2019 [facility] Hemoglobin A1c 6.2 % High 4.1- 5.7 finding (607)- - (Fma) Inr (Fma) 2.1 2.0-3.0 Comprehensive Metabolic 02/19/2019 [facility](fma) Sodium 142 mEq/L 134-149 Prof Potassium 4.9 [...] >60 ml/min/1.73m^ >=60 Laboratory test 02/19/2019 [facility]) Free T4 0.88 ng/dL 0.75- 1.54 finding [...] 3.90 x10^3/UL 1.56-6.13 Lymph# 2.13 x10^3/UL 1.18-3.74 Hill# 0.57 x10^3/UL 0.24-0.82 Eos # 0.1 x10^3/UL 0.0-0.5 Baso # 0.04 x10^3/UL 0.01-0.08 Constance% 58.0 % 34.0-70.0 Lymph % 31.6 % 20.0-52.0 Hill% 8.5 % 5.0-12.0 Eos% 1.0 % 0.7-7.0 Baso% 0.6 % 0.1-1.2 Lyme Disease AB Immunoblot WB 02/19/2019 [facility] IgG Immunoblot Negative Negative 24 IgG detected against p23 kDa IgM Immunoblot Negative Negative IgM detected against None kDa Lyme Disease Interpretation See Comment 25 Laboratory test finding 01/20/2019 [facility] Inr (a) 2.3 2.0- 3.0 (607)- - 1 [place] Severe Sepsis and Septic Shock Management Bundle Measure requires all lactic acids initially measuring >2.0 mmol/L be repeated. 2 Standard intensity warfarin therapeutic range: 2.0-3.0 High intensity warfarin therapeutic range: 2.5-3.5 3 Because ethnic data is not always [...] immediately to secondary confirmatory testing. Using the OneTag DxI 800 Access Immunoassay systems, the 99th percentile upper reference limit was demonstrated to be < 0.03 ng/mL. 5 SEE RESULT BELOW Name: ALEXANDR MITTAL : [address]: Ananth Knight MD Acct: [id number] Unit: [id number] AGE: 79 Location: ED Re06/25/19 SEX: M Status: DEP ER SPEC: [id number] SANTIAGO: 06/25/[address]: Ananth Knight MD REQ: [id number] RECD: 06/25/19 STATUS: COMP [facility] DR: [facility] Primitivo Zapien MD _ SOURCE: URINE SPDESC: ORDERED: Urine Culture Procedure Result Reported Site Urine Culture Final 06/27/19- 0850 ML No growth of clinically significant organisms * ML - Main Lab . END OF REPORT DEPARTMENT OF PATHOLOGY, [address] [place] [address] Quintin Rosales M.D. Director [facility] # [id number] 6 Standard intensity warfarin therapeutic range: 2.0-3.0 High intensity warfarin therapeutic range: 2.5-3.5 7 [facility] Severe Sepsis and Septic Shock Management Bundle Measure requires all lactic acids initially measuring >2.0 mmol/L be repeated. 8 Because ethnic data is not always readily [...] 15-29 5 Kidney failure <15 (or dialysis) 9 Troponin-I testing on Plasma Separator Tubes (PST) has a known false positive rate of 0.20-0.40%. All positive troponins reflex immediately to secondary confirmatory testing. Using the OneTag DxI 800 Access Immunoassay systems, the 99th percentile upper reference limit was demonstrated to be < 0.03 ng/mL. 10 Therapeutic target for the treatment of diabetes mellitus patients is <7% HBA1C, and in selective patients <6.0%. Please refer to [place] [employer] diabetic care guidelines for further information. 11 Standard intensity warfarin therapeutic range: 2.0-3.0 High intensity warfarin therapeutic range: 2.5-3.5 12 Director Of Public Health: [id number] Reference Range: 74-125 seconds 13 Director Of Public Health: [id number] Reference Range: 74-125 seconds 14 Director Of Public Health: [id number] Reference Range: 74-125 seconds 15 Because ethnic data is not always [...] 5 Kidney failure <15 (or dialysis) 16 Desirable: <150 Borderline High: 150-199 High: 200-499 Very High: >500 17 Desirable: <200 Borderline High: 200-239 High: >239 18 Low: <40 Desirable: 40-60 High: >60 19 Desirable: <100 Near Optimal: 100-129 Borderline High: 130-159 High: 160-189 Very High: >189 20 Standard intensity warfarin therapeutic range: 2.0-3.0 High intensity warfarin therapeutic range: 2.5-3.5 21 Director Of Public Health: [id number] Director Of Public Health: [id number] 23 RESULTS VERIFIED BY REPEAT ANALYSIS 24 1 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 Test Performed by: [address] [address] Procedures Date Code Description Status 05/28/2019 59732 Finger Or Heel Stick Completed 05/24/2019 94491 Finger Or Heel Stick Completed 04/22/2019 75362 Finger Or Heel Stick Completed 03/22/2019 80750 Finger Or Heel Stick Completed 01/20/2019 76551 Finger Or Heel Stick Completed 06/21/2016 40604523 Colonoscopy Completed 12/09/2007 [id number] Colonoscopy Completed Medical Devices Description No Information Available Encounters Type Date Location Provider Dx Diagnosis Office Visit 06/08/2019 Main Office Primitivo Zapien, I48.0 Paroxysmal atrial 5:00p M.D. fibrillation K92.1 Melena H91.93 Unspecified hearing loss, bilateral Office Visit 05/29/2019 11:40a [facility] Office Pirmitivo Priest Z23 Encounter for Aditi Zapien immunization I25.10 Athscl heart disease of [place] coronary artery w/o ang pctrs I48.0 Paroxysmal atrial fibrillation R53.83 Other fatigue G47.09 Other insomnia R73.09 Other abnormal glucose E78.49 Other hyperlipidemia Z85.46 Personal history of malignant neoplasm of prostate Office Visit 04/10/2019 10:20a [facility] Office Primitivo Priest I48.0 Paroxysmal atrial Aditi Zapien fibrillation I25.10 Athscl heart disease of [place] coronary artery w/o ang pctrs R53.83 Other fatigue E78.49 Other hyperlipidemia H25.89 Other age-related cataract Z01.818 Encounter for other preprocedural examination Office Visit 03/02/2019 [facility] Demetria Smith S70.361A Insect bite 9:45a Office WALTER Ward (nonvenomous), right thigh, initial encounter W57.xxxA Bit/stung by nonvenom insect & oth nonvenom arthropods, init Office Visit 02/19/2019 10:20a [facility] Office Primitivo Priest I25.10 Athscl heart Aditi Zapien disease of [place] coronary artery w/o ang pctrs E11.9 Type 2 diabetes mellitus without complications I48.0 Paroxysmal atrial fibrillation R53.83 Other fatigue Z12.11 Encounter for screening for malignant neoplasm of colon Assessments Date Code Description Provider 07/09/2019 I48.0 Paroxysmal atrial fibrillation Primitivo Zapien M.D. 07/09/2019 I25.10 Atherosclerotic heart disease of [place] Primitivo Zapien M.D. coronary artery with 07/09/2019 R53.83 Other fatigue Primitivo Zapien M.D. 07/09/2019 H90.3 Sensorineural hearing loss, bilateral Primitivo Zapien M.D. 06/16/2019 K92.1 Gricelda Zapien M.D. 06/08/2019 I48.0 Paroxysmal atrial fibrillation Primitivo Zapien M.D. 06/08/2019 K92.1 Gricelda Zapien M.D. 06/08/2019 H91.93 Unspecified hearing loss, bilateral Primitivo Zapien M.D. 05/29/2019 Z23 Encounter for immunization Primitivo Zapien M.D. 05/29/2019 I25.10 Atherosclerotic heart disease of [place] Primitivo Zapien M.D. coronary artery with 05/29/2019 I48.0 Paroxysmal atrial fibrillation Primitivo Zapien M.D. 05/29/2019 R53.83 Other fatigue Primitivo Zapien M.D. 05/29/2019 G47.09 Other insomnia Primitivo Zapien M.D. 05/29/2019 R73.09 Other abnormal glucose Primitivo Zapien M.D. 05/29/2019 E78.49 Other hyperlipidemia Primitivo Zapien M.D. 05/29/2019 Z85.46 Personal history of malignant neoplasm of Primitivo Zapien M.D. prostate 05/28/2019 Z79.01 meterman (current) use of anticoagulants Primitivo Zapien M.D. 05/28/2019 I48.0 Paroxysmal atrial fibrillation Primitivo Zapien M.D. 05/24/2019 Z79.01 meterman (current) use of anticoagulants Primitivo Zapien M.D. 05/24/2019 I48.0 Paroxysmal atrial fibrillation Primitivo Zapien M.D. 04/22/2019 Z79.01 meterman (current) use of anticoagulants Primitivo Zapien M.D. 04/22/2019 I48.0 Paroxysmal atrial fibrillation Primitivo Zapien M.D. 04/10/2019 I48.0 Paroxysmal atrial fibrillation Primitivo Zapien M.D. 04/10/2019 I25.10 Atherosclerotic heart disease of [place] Primitivo Zapien M.D. coronary artery with 04/10/2019 R53.83 Other fatigue Primitivo Zapien M.D. 04/10/2019 E78.49 Other hyperlipidemia Primitivo Zapien M.D. 04/10/2019 H25.89 Other age-related cataract Primitivo Zapien M.D. 04/10/2019 Z01.818 Encounter for other preprocedural Primitivo Zapien M.D. examination 03/22/2019 Z79.01 meterman (current) use of anticoagulants Primitivo Zapien M.D. [...] rectum 02/19/2019 I25.10 Atherosclerotic heart disease of [place] Primitivo Zapien M.D. coronary artery with 02/19/2019 E11.9 Type 2 diabetes mellitus without Primitivo Zapien M.D. complications 02/19/2019 I48.0 Paroxysmal atrial fibrillation Primitivo Zapien M.D. 02/19/2019 R53.83 Other fatigue Primitivo Zapien M.D. 02/19/2019 Z12.11 Encounter for screening for malignant Primitivo Zapien M.D. neoplasm of colon 01/20/2019 Z79.01 meterman (current) use of anticoagulants Primitivo Zapien M.D. 01/20/2019 I48.0 Paroxysmal atrial fibrillation Primitivo Zapien M.D. Plan of Treatment Future Appointment(s):08/20/2019 10:20 am - Primitivo Zapien M.D. at [facility]07/09/2019 - Primitivo Zapien M.D.I48.0 Paroxysmal atrial fibrillationComments:stable at this point, he is going to follow up with Dr Weston25.10 Atherosclerotic heart disease of [place] coronary artery withComments:no recent symptoms of haahjrW08.83 Other fatigueComments:continue prn txurhgxgS49.3 Sensorineural hearing loss, bilateralComments:would like ENT follow up as he feels hearing is worseAllComments:he is concerned about starting on [place], and will discuss this with differential repairer at [facility], rhythm has been stable since ER visit 06/25/19 Functional Status Description No Information Available Mental Status Description No Information Available Referrals Refer to Reason for Referral Status Appt Date Singh Lin MD Consult and treat. LT Scheduled 06/10/2019 [address] [place] [address] [phone] [facility] Hearing Evaluation jw Scheduled 05/18/[address] [place] [address] [phone]
[2019-07-28 13:05] VITALS: BP 00/00
== END 2019-07-28 13:00 | disposition left against medical advice (07) ==
LOC: ED 11:15
DX: S30.860A Insect bite (nonvenomous) of lower back and pelvis, initial encounter (principal); W57.XXXA Bitten or stung by nonvenomous insect and other nonvenomous arthropods, initial encounter; Y92.230 Patient room in hospital as the place of occurrence of the external cause; Z53.21 Procedure and treatment not carried out due to patient leaving prior to being seen by health care provider

== ENCOUNTER 2019-11-14 09:47 | Emergency (ER) | payer MEDICARE, BC, OTHER ==
[2019-11-14] MEDS ORDERED: NS 0.9% 1000 ML** 1,000 ML IV ONE (10:01)
[2019-11-14] MEDS ORDERED: Diltiazem IV push/loading dose 5 MG/ML 5 ML vial (25 mg) IV SLOW PU ONE ×2 (10:01→10:44)
--- NOTE | 2019-11-14 10:10 | ED ---
HPI Cardiac - HPI Summary HPI Summary: 79 y/o male presented to [facility] for what he believes to be his heart fluttering. 1 hour ago pt began to feel as if his heart was fluttering. Pt endorses dyspnea but denies CP and nausea. Pt had a cardiac ablation on 11/09/19 and has been electrically and chemically cardioverted. Pt has hx afib and sees Dr. Lo. He has a CPAP and has trouble sleeping. He lives with his . Medications reviewed. Allergies noted. Home Medications Medication Instructions Recorded Confirmed Type Diltiazem CD CAP* [Cardizem CD 120 mg PO BEDTIME 03/22/14 06/25/19 History CAP*] Nitroglycerin TAB 0.4 MG* 0.4 mg SL Q5M PRN 06/18/16 06/25/19 History Cholecalciferol TAB* [Vitamin D 2,000 units PO BID 10/23/17 06/25/19 History TAB*] Zolpidem TAB* [Ambien*] 5 mg PO BEDTIME PRN 10/23/17 06/25/19 History Ticagrelor* [Brilinta 90 MG*] 90 mg PO BID #60 tab 05/07/19 06/25/19 Rx Alirocumab [Praluent] 75 mg SUBCUT Q14D 06/25/19 06/25/19 History Apixaban* [Eliquis*] 5 mg PO BID 06/25/19 06/25/19 History Pvciq-7-[id number] Ethyl Esters (NF) 1 gm PO BID 06/25/19 06/25/19 History [Lovaza (NF)] Potassium Chlor TAB* [Klor Con ER 20 meq PO DAILY 06/25/19 06/25/19 History TAB*] Ubidecarenone [Co Q-10] 100 mg PO QAM 06/25/19 06/25/19 History - History of Current Complaint Chief Complaint: EDDysrhythmPalp Stated Complaint: IRREGULAR HEART BEAT PER PT Time Seen by Provider: 11/14/19 09:54 Hx Obtained From: Patient Onset/Duration: Started Hours Ago Timing: Lasting Hours Current Severity: None Pain Intensity: 0 Pain Scale Used: 0-10 Numeric Character: Fluttering Aggravating Factor(s): Nothing Alleviating Factor(s): Nothing Associated Signs and Symptoms: Positive: Other: - positive - dyspnea; negative - CP. Negative: Nausea - Allergy/Home Medications Allergies/Adverse Reactions: Allergies Allergy/AdvReac Type Severity Reaction Status Date / Time niacin Allergy Intermediate Flushing Verified 11/14/19 10:05 [From Niaspan Extended-Release] hydrocodone [From Lortab] Allergy Unknown Unknown Verified 11/14/19 10:05 Reaction Details chocolate flavor Allergy Sneezing Verified 11/14/19 10:05 strawberry Allergy Hives Verified 11/14/19 10:05 atorvastatin [From Lipitor] AdvReac Severe Muscle Ache Verified 11/14/19 10:05 pravastatin AdvReac Severe Muscle Ache Verified 11/14/19 10:05 Home Medications: Home Medications Diltiazem CD CAP* [Cardizem CD CAP*] 120 mg PO BEDTIME 03/22/14 [History Confirmed 11/14/19] Nitroglycerin TAB 0.4 MG* 0.4 mg SL Q5M PRN 06/18/16 [History Confirmed 11/14/19 ] Cholecalciferol TAB* [Vitamin D TAB*] 2,000 units PO BID 10/23/17 [History Confirmed 11/14/19] Zolpidem TAB* [Ambien*] 5 mg PO BEDTIME PRN 10/23/17 [History Confirmed 11/14/19 ] Alirocumab [Praluent] 75 mg SUBCUT Q14D 06/25/19 [History Confirmed 11/14/19] Apixaban* [Eliquis*] 5 mg PO BID 06/25/19 [History Confirmed 11/14/19] Oawym-1-Twxv Ethyl Esters (NF) [Lovaza (NF)] 1 gm PO BID 06/25/19 [History Confirmed 11/14/19] Potassium Chlor TAB* [Klor Con ER TAB*] 20 meq PO DAILY 06/25/19 [History Confirmed 11/14/19] Ubidecarenone [Co Q-10] 10 mg PO QAM 06/25/19 [History Confirmed 11/14/19] Clopidogrel TAB* [Plavix TAB*] 75 mg PO DAILY 11/14/19 [History Confirmed ] Multivit-Min/Folic/Vit K/Lycop [Men's Multivitamin Tablet] 1 each PO DAILY 11/13 [History Confirmed 11/14/19] Omeprazole 40 mg PO DAILY 11/14/19 [History Confirmed 11/14/19] PMH/Surg Hx/FS Hx/Imm Hx Endocrine/Hematology History: Denies: Hx Diabetes Cardiovascular History: Reports: Hx Angina, Hx Atrial Fibrillation, Hx Coronary Artery Disease, Hx Hypercholesterolemia, Other Cardiovascular Problems/ Disorders - Afib Denies: Hx Congestive Heart Failure, Hx Hypertension, Hx Myocardial Infarction, Hx Pacemaker/ICD, Hx Valvular Heart Disease Respiratory History: Reports: Hx Sleep Apnea Denies: Hx Asthma, Hx Chronic Obstructive Pulmonary Disease (COPD) Comment Only: Other Respiratory Problems/Disorders - CPAP at night GI History: Reports: Hx Gastroesophageal Reflux Disease History: Reports: Other Problems/Disorders - hx frequency & urgency Denies: Hx Chronic Renal Failure, Hx Renal Disease Musculoskeletal History: Reports: Other Musculoskeletal History - spinal stenosis Sensory History: Reports: Hx Cataracts, Hx Contacts or Glasses - reading glasses , Hx Glaucoma - both eyes, Hx Hearing Aid - did not bring from home Opthamlomology History: Reports: Hx Cataracts, Hx Contacts or Glasses - reading glasses, Hx Glaucoma - both eyes Psychiatric History: Denies: Hx Panic Disorder - Cancer History Cancer Type, Location and Year: prostate cancer Hx Chemotherapy: No Hx Radiation Therapy: No - Surgical History Surgery Procedure, Year, and Place: HEART BYPASS WITH NO STENTING 1992. PROSTATE REMOVAL FROM CA. GALLBLADDER 1994. VASECTOMY Hx Anesthesia Reactions: No - Immunization History Date of Tetanus Vaccine: utd Date of Influenza Vaccine: fall 2017 Infectious Disease History: No Infectious Disease History: Denies: Traveled Outside the [place] in Last 30 Days - Family History Known Family History: Positive: Hypertension, Other - Positive: Atrial fibrillation - Social History Alcohol Use: None Hx Substance Use: No Substance Use Type: Reports: None Hx Tobacco Use: No Smoking Status (MU): Never Smoked Tobacco Review of Systems Negative: Chest Pain Positive: Other - dyspnea Negative: Nausea All Other Systems Reviewed And Are Negative: Yes Physical Exam - Summary Physical Exam Summary: Constitutional: Well-developed, Well-nourished, Alert. (-) Distressed Skin: Warm, Dry HENT: Normocephalic; Atraumatic Eyes: Conjunctiva normal Neck: Musculoskeletal ROM normal neck. (-) JVD, (-) Stridor, (-) Tracheal deviation Cardio: Tachycardic at 140 in room, Heart sounds normal; Intact distal pulses; Radial pulses are 2+ and symmetric. (-) Murmur Pulmonary/Chest wall: Effort normal. (-) Respiratory distress, (-) Wheezes, (-) Rales Abd: Soft, (-) tenderness, (-) Distension, (-) Guarding, (-) Rebound Musculoskeletal: (-) Edema, Good pulses bilaterally in radius, No calf tenderness, No venous cords, No pain with dorsiflexion of foot. Lymph: (-) Cervical adenopathy Neuro: Alert, Oriented x3 Psych: Mood and affect Normal Triage Information Reviewed: Yes Vital Signs On Initial Exam: Initial Vitals Temp Pulse Resp BP Pulse Ox 98.3 F 140 16 141/95 97 11/14/19 09:48 11/14/19 09:48 11/14/19 09:48 11/14/19 09:48 11/14/19 09:48 Vital Signs Reviewed: Yes Procedures - Sedation Patient Received Moderate/Deep Sedation with Procedure: No - Additional Procedures Additional Procedures: cardioversion/defib - 75J synchronized cardioversion with successful cardioversion to sinus rhythm Diagnostics - Vital Signs Vital Signs Temp Pulse Resp BP Pulse Ox 11/14/19 09:48 98.3 F 140 16 141/95 97 - Laboratory Result Diagrams: 11/14/19 10:10 11/14/19 10:10 Lab Statement: Any lab studies that have been ordered have been reviewed, and results considered in the medical decision making process. - Radiology cxr Radiology Interpretation Completed By: Radiologist Summary of Radiographic Findings: IMPRESSION: Interval appearance of right lung density obscuring the right lower lobe and. right hemidiaphragm. Differential includes consolidation of the right lower lung and/or. pleural effusion. This report was reviewed by the ED physician. - EKG 0958 Cardiac Rate: Tachycardia EKG Rhythm: Atrial Flutter Summary of EKG Findings: EKG at 0958 shows Aflutter at 140bpm. No obvious ischemic changes. No STEMI. This EKG was reviewed and interpreted by the ED physician. 1102 Cardiac Rate: NL EKG Rhythm: Atrial Fibrillation Summary of EKG Findings: EKG at 1102 shows Afib at 95bpm. No STEMI. This EKG was reviewed and interpreted by the ED physician. 1426 Cardiac Rate: NL EKG Rhythm: Sinus Rhythm Summary of EKG Findings: EKG at 1426 shows NSR at 81bpm. RSR prime in v1, v2. No STEMI. This EKG was reviewed and interpreted by the ED physician. Re-Evaluation - Re-Evaluation First Eval Re-Evaluation Time: 14:46 Comment: Pt is awake and talking after cardioversion. Second Eval Re-Evaluation Time: 15:43 Comment: Pt is standing and will be discharged soon Disposition - Course Course Of Treatment: Patient is here with atrial flutter. Patient had an ablation on the . Patient is a 30 on diltiazem so patient is given 2 IV doses of diltiazem with no change in his heart rate outside of a short period of her in the 90s. Patient was started on a diltiazem drip. Cardiology was called and they recommended giving patient magnesium and waiting to see if he spontaneously converted which is typical with these post ablation atrial flutter cases. Patient did not respond to his medicines so cardiology called back and wanted patient electrically cardioverted. Patient is on Eliquis. Patient received sedation with ketamine and was successfully cardioverted. Patient was able to ambulate prior to discharge and will follow up with Dr. Lo on Friday - Diagnoses Provider Diagnoses: Atrial flutter, Elevated troponin - Physician Notifications Discussed Care Of Patient With: Jr Jean Time Discussed With Above Provider: 11:12 Instructed by Provider To: Other - Pt case was discussed with Dr. Jean, who suggests to start a Dilitiazem drip and give a dose of Mg, then watch him. If does not revert spontaneously he will be admitted. At 1257 Dr. Jean recommended cardioversion. - Critical Care Time Critical Care Time: 75-104 min - 75 Discharge ED - Sign-Out/Discharge Documenting (check all that apply): Patient Departure - dc - Discharge Plan Condition: Stable Disposition: HOME Patient Education Materials: Atrial Flutter (ED) Referrals: Primitivo Zapien MD [Primary Care Provider] - Additional Instructions: PLEASE RETURN TO EMERGENCY DEPARTMENT IF YOU EXPERIENCE CHEST PAIN OR FEEL LIKE YOU ARE IN ARRHYTHMIA. Please follow up with Dr. Lo. Please make all follow- ups in 1-3 days unless I advise you otherwise. - Billing Disposition and Condition Condition: STABLE Disposition: Home - Attestation Statements Document Initiated by Scribe: Yes Documenting Scribe: Marcelo Montero Provider For Whom Valentine is Documenting (Include Credential): Mo Garcia MD Scribe Attestation: I, Marcelo Montero, scribed for Mo Garcia MD on 11/14/19 at 1803. Scribe Documentation Reviewed: Yes Provider Attestation: The documentation as recorded by the Marcelo jackson accurately reflects the service I personally performed and the decisions made by me, Mo Garcia MD Status of Scribe Document: Viewed
[2019-11-14 10:19] LABS: ABS Eosinophils 0.1 10^3/ul (0-0.6); ABS Lymphocytes 1.8 10^3/ul (1.0-4.8); ABS Monocytes 0.5 10^3/ul (0-0.8); Eosinophil % 1.8 %; Hematocrit 44 % (42-52); Hemoglobin 14.8 g/dL (14.0-18.0); Lymphocyte % 28.2 %; Mean Corpuscular HGB Conc 34 g/dL (31-36); Mean Corpuscular Hemoglobin 33 pg (27-31); Mean Corpuscular Volume 96 fL (80-94); Mean Platelet Volume 7.3 fL (7.4-10.4); Platelet Count 229 10^3/uL (150-450); Red Blood Count 4.54 10^6 /uL (4.18-5.48); Red Cell Distribution Width 14 % (10-15); White Blood Count 6.4 10^3/uL (3.5-10.8)
[2019-11-14 10:26] LABS: INR 1.46 (0.82-1.09)
[2019-11-14 10:37] LABS: ALT 20 U/L (7-52); AST 18 U/L (13-39); Albumin 4.3 g/dL (3.2-5.2); Albumin/Globulin Ratio 1.8 (1-3); Alkaline Phosphatase 48 U/L (34-104); Anion Gap 7 mmol/L (2-11); Blood Urea Nitrogen 17 mg/dL (6-24); CO2 Carbon Dioxide 27 mmol/L (22-32); Calcium 9.8 mg/dL (8.6-10.3); Chloride 103 mmol/L (101-111); EGFR African American 81.5 (>60); EGFR Non-African American 67.4 (>60); Globulin 2.4 g/dL (2-4); Glucose 198 mg/dL (70-100); Magnesium 1.9 mg/dL (1.9-2.7); Potassium 4.4 mmol/L (3.5-5.0); Sodium 137 mmol/L (135-145); Total Protein 6.7 g/dL (6.4-8.9)
--- OUTSIDE RECORDS SUMMARY | 2019-11-14 10:37 | XMS REPORT | Continuity of Care Document ---
:1940 External Reference #:[id number] Author Name Taylor Monae DNP, RN, ENFORCEMENT SAFETY OFFICER-BC (transmitted by agent of provider Pam Veras) Address [address], [address] [place] [id number] Care Team Providers Name Role Phone Primitivo Zapien MD - Family Medicine Care Team Information Government Affairs Researcher [phone] Problems Active Problems Provider Date Pure hypercholesterolemia [...] syndrome Taylor Monae DNP, RN, Onset: 07/08/2016 ENFORCEMENT SAFETY OFFICER-BC Insomnia Taylor Monae DNP, RN, Onset: 07/08/2016 ENFORCEMENT SAFETY OFFICER-BC Encounter for planned postprocedural Juarez Mccarty M.D., [facility], Onset: 2018 [facility] Social History Type Date Description Comments Sex Unknown Tobacco Use Start: Unknown Never Smoked Cigarettes Smoking Status Reviewed: 09/17/19 Never Smoked Cigarettes ETOH Use Denies alcohol use Tobacco Use Start: Unknown Patient has never smoked Recreational Drug Use Denies Drug Use Exercise Type/Frequency Exercises regularly Cardiac rehab twice weekly Allergies, Adverse Reactions, Alerts Active Allergies Reaction [...] a day N.P. Praluent 1 injection sc 6ml E78.00 Leanne Florence, 11/13/2018 75mg/ml every 2 weeks N.P. Solution Pen-Inject Potassium Chloride 2 by mouth every 180tabs [...] at at bedtime Unknown 5mg prn Tablets History Medications Multaq 1 by mouth twice a 60tabs Leanne Florence, 07/07/2019 - 400mg day (pt currently N.P. 08/24/2019 Tablets not wanting to take) Medications Administered in Office Medication SIG Qnty [...] 40 Millicuries Injection Technetium TC 99M Singh oL M.D. 03/25/2016 Tetrofosmin, Per Unit Dose Up To 40 Millicuries Injection Technetium TC 99M Jr Jean M.D., 03/23/2015 Tetrofosmin, Per Unit Dose FACC, FASNC Up To 40 Millicuries Injection Immunizations CPT Code Status Date Vaccine Lot # [id number] Given 06/10/2016 Influenza Virus Vaccine, Quadrivalent, Split, Preservative Free Vital Signs Date Vital Result Comment 09/17/2019 9:30am Height 70 inches 5'10" Weight 173.00 lb Heart Rate 74 /min BP Systolic 160 mmHg BP Diastolic 90 mmHg O2 % BldC Oximetry 96 % BMI (Body Mass Index) 24.8 kg/m2 08/25/2019 11:58am Height 70 inches 5'10" Weight 174.00 lb with shoes Heart Rate 80 /min left radial BP Systolic Sitting 128 mmHg Lue, reg cuff BP Diastolic Sitting 78 mmHg Lue, reg cuff BP Systolic Standing 124 mmHg Lue, reg cuff BP Diastolic Standing 74 mmHg Lue, reg cuff BMI (Body Mass Index) 25.0 kg/m2 Ejection Fraction 60%-65% echocardiogram 07/12/18 Results Test Acquired Facility Test Result H/L Range Note Date Laboratory test 05/07/2019 [facility] Poc Activated 243 seconds [address] [place] [address] [phone] Laboratory test 05/07/2019 [facility] Poc Activated 235 seconds [address] Clotting Time [place], [place] [id number] [phone] Laboratory test 05/07/2019 [facility] Poc Activated 219 seconds [address] Clotting Time [place], [place] [id number] [phone] Inr/Protime 05/07/2019 [facility] Inr 1.30 High 0.82-1.[address] [place] [address] [phone] Laboratory test 05/07/2019 [facility] Hemoglobin A1c 6.5 % High 4.0-5.[address] (Glyco HGB) [place] [address] [phone] Cath Panel 05/04/2019 [facility] Partial 44.1 High 26.0-38.[address] Thrombo Time [place] [address] PTT [phone] CBC Auto Diff 05/04/2019 [facility] White Blood 7.3 10^3/uL Normal 3.5-10.[address] [address] [phone] Red Blood Count 4.46 10^6/uL Normal 4.18-5.48 [...] Red Blood Cells % 0.1 Inr/Protime 05/04/2019 [facility] Inr 3.09 High 0.82-1.[address] [place] [address] [phone] Lipid Panel - 05/04/2019 [facility] Creatine 34 U/L Normal 10- [address] Kinase(CK) [place] [address] [phone] Comp Metabolic 05/04/2019 [facility] Sodium 140 Normal 135- [address] mmol/[place] [address] [phone] Potassium 4.6 mmol/L Normal 3.5-5.0 Chloride 105 [...] Egfr 89.3 >60 7 Lipid Profile 05/04/2019 [facility] Triglycerides 181 mg/dL 8 (Trig/Chol/HDL) [address] [place] [address] [phone] Cholesterol 113 mg/dL 9 HDL Cholesterol 33.7 mg/dL 10 LDL Cholesterol 43 mg/dL 11 1 Nurse Administrator: [id number] Reference Range: 74-125 seconds 2 Nurse Administrator: [id number] Reference Range: 74-125 seconds 3 Nurse Administrator: [id number] Reference Range: 74-125 seconds 4 Standard intensity warfarin therapeutic range: 2.0-3.0 High intensity warfarin therapeutic range: 2.5-3.5 5 Therapeutic target for the treatment of diabetes mellitus patients is <7% HBA1C, and in selective patients <6.0%. Please refer to [place] [employer] diabetic care guidelines for further [...] High: >189 Procedures Date Code Description Status 08/25/2019 99861 EKG Tracing & Interpretation Completed 07/26/2019 92875 Polysomnography Sleep Staging 4+ Parameters W/Cpap Completed 07/02/2019 26207 EKG Tracing & Interpretation Completed 05/12/2019 31928 EKG Tracing & Interpretation Completed 05/08/2019 35389 EKG, Interpretation Only Completed 05/07/2019 64656 Coronary Angiography With Catheter Placement In Bpyass Completed Grafts 05/07/2019 45827 EKG, Interpretation Only Completed 05/07/2019 67520 Intravascular Ultrasound (Coron) Completed 05/07/2019 56367 Percutaneous Transcatheter Placement Of Intracoronary Completed Stent Medical Devices Description No Information Available Encounters Type Date Location Provider Dx Diagnosis Office Visit 08/25/2019 [facility] Singh Priest I25.10 [facility] 11:40a Braulio Lo. disease of [place] coronary artery w/o ang pctrs E78.00 Pure hypercholesterolemia, unspecified I10 Essential (primary) hypertension I48.0 Paroxysmal atrial fibrillation Office Visit 07/02/2019 8:30a [facility] Leanne S. I25.10 [facility] Naman, N.P. disease of [place] coronary artery w/o ang pctrs I10 Essential (primary) hypertension E78.00 Pure hypercholesterolemia, unspecified Z98.61 Coronary angioplasty status I49.5 Sick sinus syndrome I48.0 Paroxysmal atrial fibrillation Office Visit 07/02/2019 [facility] G47.33 Obstructive sleep 9:30a [facility] Monae, RN, apnea (adult) [facility] (pediatric) H91.92 Unspecified hearing loss, left ear Office Visit 05/24/2019 9:30a [facility] Leanne S. I25.10 [facility] Naman, N.P. disease of [place] coronary artery w/o ang pctrs I10 Essential (primary) hypertension E78.00 Pure hypercholesterolemia, unspecified I49.5 Sick sinus syndrome I48.0 Paroxysmal atrial fibrillation Office Visit 05/12/2019 3:40p [facility] Juarez Mccarty, Z48.812 [facility] [place] [facility] [place]iti, FAC, surgical aftcr FSCAI following surgery on the circ sys I25.10 [facility] heart disease of [place] coronary artery w/o ang pctrs Z95.1 Presence of aortocoronary bypass graft Office Visit 05/08/2019 1:30p [facility] Jose Luis Emanuel I25.10 [facility] heart [facility] [place] [facility] [place] Liana, 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 [place] coronary artery with 08/25/2019 E78.00 Pure hypercholesterolemia, Singh Lo M.D. unspecified 08/25/2019 I10 Essential (primary) hypertension Singh Lo M.D. 08/25/2019 I48.0 Paroxysmal atrial fibrillation Singh Lo M.D. 07/26/2019 G47.33 Obstructive sleep apnea (adult) Nataliya Hutchins MD (pediatric) 07/02/2019 R94.31 Abnormal electrocardiogram [ECG] Singh Lo M.D. [EKG] 07/02/2019 I25.10 Atherosclerotic heart disease of Leanne S. Foster, N.P. [place] coronary artery with 07/02/2019 G47.33 Obstructive sleep apnea (adult) Taylor Monae DNP, MARISA, (pediatric) [facility] 07/02/2019 I10 Essential (primary) hypertension Leanne S. Foster, N.P. 07/02/2019 E78.00 Pure hypercholesterolemia, Leanne S. Foster, N.P. unspecified 07/02/2019 Z98.61 Coronary angioplasty status Leanne S. Foster, N.P. 07/02/2019 H91.92 Unspecified hearing loss, left ear Taylor Monae DNP, RN, [facility] 07/02/2019 I49.5 Sick sinus syndrome Leanne S. Foster, N.P. 07/02/2019 I48.0 Paroxysmal atrial fibrillation Leanne S. Foster, N.P. 05/24/2019 I25.10 Atherosclerotic heart disease of Leanne S. Foster, N.P. [place] coronary artery with 05/24/2019 I10 Essential (primary) hypertension Leanne S. Foster, N.P. 05/24/2019 E78.00 Pure hypercholesterolemia, Leanne S. Foster, N.P. unspecified 05/24/2019 I49.5 Sick sinus syndrome Leanne S. Foster, N.P. 05/24/2019 I48.0 Paroxysmal atrial fibrillation Leanne Florence N.P. 05/12/2019 Z48.812 Encounter for surgical aftercare Juarez Mccarty M.D., [facility], following surgery on the circulatory FSCAI system 05/12/2019 I25.10 Atherosclerotic heart disease of Juarez Mccarty M.D., [facility], [place] coronary artery [facility] 05/12/2019 Z95.1 Presence of aortocoronary bypass Juarez Mccarty M.D., [facility], graft [facility] 05/08/2019 R94.31 Abnormal electrocardiogram [ECG] Singh Lo M.D. [EKG] 05/08/2019 I25.10 Atherosclerotic heart disease of Jose Luis Gaines MD, FACC, [place] coronary artery without angina [facility] pectoris 05/08/2019 Z95.5 Presence of coronary angioplasty Jose Luis Gaines MD, FACC , implant and graft [facility] 05/08/2019 E11.9 Type 2 diabetes mellitus without Jose Luis Gaines MD, FACC , complications [facility] 05/08/2019 I10 Essential (primary) hypertension Jose Luis Gaines MD, FACC, [facility] 05/07/2019 R00.1 Bradycardia, unspecified Singh Lo M.D. 05/07/2019 I25.10 Atherosclerotic heart disease of Jose Luis Gaines MD, FACC, [place] coronary artery without angina [facility] pectoris 05/07/2019 Z95.1 Presence of aortocoronary bypass Jose Luis Gaines MD, LOLA , graft [facility] Plan of Treatment Future Appointment(s):03/13/2020 9:45 am - Taylor Monae DNP, RN, JUANCARLOS-BC at [facility]11/03/2019 3:40 pm - Singh Lo M.D. at [facility] 109/17/2019 - Taylor Monae DNP, RN, JUANCARLOS-BCG47.33 Obstructive sleep apnea (adult) (pediatric)Comments:On CPAP AHI 3.4/hour, large leakFollow up:6 monthsRecommendations:Continue PAP device, Benefitting and compliant with [...] please call the [facility] at [phone].F51.04 Psychophysiologic insomniaRecommendations:Keep a sleep diary to determine your sleep ability. If your ability is 7 hours, then time in bed should be 11-6. If you find it is 8 hours then 11-7 AM. If you decide you want to work on the insomnia with cognitive behavioral therapy for insomnia (CBT-I) call for an appointment (30-minutes). As we discussed when you limit your time in bed you might get sleepy during usha day.R06.02 Shortness of breathRecommendations:You report feeling short of breath since starting Brilinta , you should make an appointment with atmospheric drier tender to discuss the symptoms you are experiencing. Functional Status Description No Information Available Mental Status Description No Information Available Referrals Refer to Reason for Referral Status Appt Date Kristin Butler MD pAF symptomatic eval for ablation Sent [address] [place] [address] [phone] Singh Lin MD Pt complains of sudden hearing loss left ear Closed 2-weeks ago On CPAP auto [address] [address] [phone]
[2019-11-14] MEDS ORDERED: Magnesium Sulfate 2 GM IV* 2 GM/50 ML BAG IVPB ONE (11:15)
[2019-11-14 11:21] LABS: TSH (Thyroid Stimulating Horm) 1.85 mcIU/mL (0.34-5.60)
[2019-11-14 11:57] LABS: Urine Appearance Clear; Urine Bilirubin Negative (Negative); Urine Blood Negative (Negative); Urine Color Yellow; Urine Glucose 1+(50 mg/dL) (Negative); Urine Ketones Negative (Negative); Urine Nitrite Negative (Negative); Urine Protein Negative (Negative); Urine Specific Gravity 1.013 (1.010-1.030); Urine Urobilinogen Negative (Negative)
[2019-11-14] MEDS ORDERED: Diltiazem IV BAG* D5W Premix 125 MG/125 ML BAG IV SCH (12:00)
[2019-11-14] MEDS ORDERED: KETAMINE HCL* 50 MG/ML 10 ML VIAL IV ONE (13:34)
[2019-11-14 13:40] LABS: Troponin I 0.3 ng/mL (<0.03)
--- NOTE | 2019-11-14 14:32 | ED ---
ED Sedation - Procedural Sedation/Analgesia Sedation Course: RT Present - Procedural sedation w/o any complication. Patient is under Dr. Jose thao., Emergency Airway Equipment Available, Informed Consent Obtained, Time Out Completed, End-tidal Capnography Utilized Adverse Reactions Experienced by Patient: None Mallampati Classification: Class II ASA Classification: Class II: Mild Systemic Disease Diagnosis: Procedural sedation Pre-Procedural Heart: No Murmur Pre-Procedural Lungs: Clear Auscultation Comment/Plan of Care: Procedural sedation for cardioversion. Provider Procedure Attestation: With My Signature Below, I Attest to have Personally Reviewed and Agree with the Pre-Sedation History and Pre-Service Assessment Update Cleared for Moderate Sedation: Yes Pre-Procedural Diagnosis: Procedural sedation for cardioversion Post-Procedural Diagnosis: Procedural sedation for cardioversion. Procedure: Cardioversion Estimated Blood Loss: None Specimen(s): None Findings: None Implants/Tubes/Drains Placed: None
[2019-11-14 16:19] VITALS: BP 108/72
== END 2019-11-14 16:18 | disposition home or self-care (01) ==
LOC: ED 09:47
DX: I48.92 Unspecified atrial flutter (principal); R79.89 Other specified abnormal findings of blood chemistry; I48.91 Unspecified atrial fibrillation; I25.10 Atherosclerotic heart disease of native coronary artery without angina pectoris; E78.00 Pure hypercholesterolemia, unspecified; K21.9 Gastro-esophageal reflux disease without esophagitis; Z95.1 Presence of aortocoronary bypass graft; Z90.49 Acquired absence of other specified parts of digestive tract; Z90.79 Acquired absence of other genital organ(s); Z85.46 Personal history of malignant neoplasm of prostate; Z79.01 Long term (current) use of anticoagulants; Z79.899 Other long term (current) drug therapy; Z88.5 Allergy status to narcotic agent; Z88.8 Allergy status to other drugs, medicaments and biological substances
CPT/HCPCS: 36415; 71045; 80053; 81003; 83735; 84443; 84484; 85025; 85610; 92960; 93005; 96361; 96365; 96375; 96376; 99285; J3475; J3490

== ENCOUNTER 2019-11-16 09:03 | Emergency (ER) | payer MEDICARE, BC, OTHER ==
[2019-11-16] MEDS ORDERED: Diltiazem IV push/loading dose 5 MG/ML 5 ML vial (25 mg) IV SLOW PU ONE ×2 (09:10→09:49)
[2019-11-16] MEDS ORDERED: Magnesium Sulfate 1 GM IV* 1 GM/100 ML BAG IV ONE (09:11)
--- NOTE | 2019-11-16 09:29 | ED ---
Palpitations / Dysrhythmia - HPI Summary HPI Summary: Patient is a 79 y/o M presenting to the ED for a chief complaint of palpitations. He also notes flank pain for which he had an appointment with Dr. Yadav on 11/16/19 but missed due to coming here. Pain had started after his prior ablation. Denies hematuria. Patient denies chest pain or shortness of breath. No aggravating or alleviating factors are reported. Patient states that he had an ablation performed on 11/09/19 at [facility]. PMHx is significant for atrial fibrillation since 1994 for which he takes Eliquis. PSHx is significant for bypass. Patient takes diltiazem which he takes at night, last taking it on 11/15/19. Dr. Lo is his referral specialist. He is also a patient of Dr. Yadav. - History of Current Complaint Chief Complaint: EDDysrhythmPalp Time Seen by Provider: 11/16/19 09:09 Hx Obtained From: Patient Onset/Duration: Sudden Onset, Still Present Timing: Constant Severity Initially: Moderate Severity Currently: Moderate Character: Fast, Irregular Aggravating: Nothing Alleviating: Nothing - Allergy/Home Medications Allergies/Adverse Reactions: Allergies Allergy/AdvReac Type Severity Reaction Status Date / Time niacin Allergy Intermediate Flushing Verified 11/14/19 10:05 [From Niaspan Extended-Release] hydrocodone [From Lortab] Allergy Unknown Unknown Verified 11/14/19 10:05 Reaction Details chocolate flavor Allergy Sneezing Verified 11/14/19 10:05 strawberry Allergy Hives Verified 11/14/19 10:05 atorvastatin [From Lipitor] AdvReac Severe Muscle Ache Verified 11/14/19 10:05 pravastatin AdvReac Severe Muscle Ache Verified 11/14/19 10:05 Home Medications: Home Medications Diltiazem CD CAP* [Cardizem CD CAP*] 120 mg PO BEDTIME 03/22/14 [History Confirmed 11/16/19] Nitroglycerin TAB 0.4 MG* 0.4 mg SL Q5M PRN 06/18/16 [History Confirmed 11/16/19 ] Cholecalciferol TAB* [Vitamin D TAB*] 2,000 units PO BID 10/23/17 [History Confirmed 11/16/19] Zolpidem TAB* [Ambien*] 5 mg PO BEDTIME PRN 10/23/17 [History Confirmed 11/16/19 ] Alirocumab [Praluent] 75 mg SUBCUT Q14D 06/25/19 [History Confirmed 11/16/19] Apixaban* [Eliquis*] 5 mg PO BID 06/25/19 [History Confirmed 11/16/19] Ejprk-5-Skew Ethyl Esters (NF) [Lovaza (NF)] 1 gm PO BID 06/25/19 [History Confirmed 11/16/19] Potassium Chlor TAB* [Klor Con ER TAB*] 20 meq PO DAILY 06/25/19 [History Confirmed 11/16/19] Ubidecarenone [Co Q-10] 10 mg PO QAM 06/25/19 [History Confirmed 11/16/19] Clopidogrel TAB* [Plavix TAB*] 75 mg PO DAILY 11/14/19 [History Confirmed ] Multivit-Min/Folic/Vit K/Lycop [Men's Multivitamin Tablet] 1 each PO DAILY 11/13 [History Confirmed 11/16/19] Omeprazole 40 mg PO DAILY 11/14/19 [History Confirmed 11/16/19] PMH/Surg Hx/FS Hx/Imm Hx Previously Healthy: Yes Endocrine/Hematology History: Denies: Hx Diabetes Cardiovascular History: Reports: Hx Angina, Hx Atrial Fibrillation, Hx Coronary Artery Disease, Hx Hypercholesterolemia, Other Cardiovascular Problems/ Disorders - Afib Denies: Hx Congestive Heart Failure, Hx Hypertension, Hx Myocardial Infarction, Hx Pacemaker/ICD, Hx Valvular Heart Disease Respiratory History: Reports: Hx Sleep Apnea Denies: Hx Asthma, Hx Chronic Obstructive Pulmonary Disease (COPD) Comment Only: Other Respiratory Problems/Disorders - CPAP at night GI History: Reports: Hx Gastroesophageal Reflux Disease History: Reports: Other Problems/Disorders - hx frequency & urgency Denies: Hx Chronic Renal Failure, Hx Renal Disease Musculoskeletal History: Reports: Other Musculoskeletal History - spinal stenosis Sensory History: Reports: Hx Cataracts, Hx Contacts or Glasses - reading glasses , Hx Glaucoma - both eyes, Hx Hearing Aid - did not bring from home Denies: Hx Legally Blind, Hx Deafness Opthamlomology History: Reports: Hx Cataracts, Hx Contacts or Glasses - reading glasses, Hx Glaucoma - both eyes Denies: Hx Legally Blind EENT History: Denies: Hx Deafness Psychiatric History: Denies: Hx Panic Disorder - Cancer History Cancer Type, Location and Year: prostate cancer Hx Chemotherapy: No Hx Radiation Therapy: No - Surgical History Surgical History: Yes Surgery Procedure, Year, and Place: HEART BYPASS WITH NO STENTING 1992. PROSTATE REMOVAL FROM CA. GALLBLADDER 1994. VASECTOMY Hx Anesthesia Reactions: No - Immunization History Date of Tetanus Vaccine: utd Date of Influenza Vaccine: fall 2017 Infectious Disease History: No Infectious Disease History: Denies: Traveled Outside the [place] in Last 30 Days - Family History Known Family History: Positive: Hypertension, Other - Positive: Atrial fibrillation - Social History Occupation: Retired Lives: With Family Alcohol Use: None Hx Substance Use: No Substance Use Type: Reports: None Hx Tobacco Use: No Smoking Status (MU): Never Smoked Tobacco Review of Systems Positive: Palpitations. Negative: Chest Pain Negative: Shortness Of Breath All Other Systems Reviewed And Are Negative: Yes Physical Exam - Summary Physical Exam Summary: Constitutional: Well-developed, Well-nourished, Alert. (-) Distressed Skin: Warm, Dry HENT: Normocephalic; Atraumatic Eyes: Conjunctiva normal Neck: Musculoskeletal ROM normal neck. (-) JVD, (-) Stridor, (-) Nuchal rigidity Cardio: Irregularly irregular; Tachycardia, Heart sounds normal; Intact distal pulses; Radial pulses are 2+ and symmetric. (-) Murmur Pulmonary/Chest wall: Effort normal. (-) Respiratory distress, (-) Wheezes, (-) Rales Abd: Soft, (-) tenderness, (-) Distension, (-) Guarding, (-) Rebound : Right groin incision site with scant bruising and mild swelling. Musculoskeletal: (-) Edema Lymph: (-) Cervical adenopathy Neuro: Alert, Oriented x3 Psych: Mood and affect Normal Triage Information Reviewed: Yes Vital Signs On Initial Exam: Initial Vitals Temp Pulse Resp BP Pulse Ox 97.4 F 146 16 132/83 98 11/16/19 09:04 11/16/19 09:04 11/16/19 09:04 11/16/19 09:04 11/16/19 09:04 Vital Signs Reviewed: Yes Procedures - Sedation Patient Received Moderate/Deep Sedation with Procedure: No Diagnostics - Vital Signs Vital Signs Temp Pulse Resp BP Pulse Ox 03/03/20 09:04 97.4 F 146 16 132/83 98 - Laboratory Result Diagrams: 11/16/19 09:25 11/16/19 09:25 Lab Statement: Any lab studies that have been ordered have been reviewed, and results considered in the medical decision making process. - EKG 09:06 Cardiac Rate: Other Rate - 146 BPM EKG Rhythm: Atrial Fibrillation ST Segment: Normal Ectopy: None Summary of EKG Findings: An EKG at 09:06 reveals atrial fibrillation with 146 BPM, nml axis, nml intervals. No STEMI. No acute changes. ED physician has reviewed and interpreted this EKG. 10:01 Cardiac Rate: NL - 78 BPM EKG Rhythm: Sinus Rhythm ST Segment: Normal Ectopy: None Summary of EKG Findings: An EKG at 10:01 reveals normal sinus rhythm with 78 BPM , T wave flattening in lead III, nml axis, nml intervals. No STEMI. No acute changes. ED physician has reviewed and interpreted this EKG. Re-Evaluation - Re-Evaluation First Eval Re-Evaluation Time: 09:52 Change: Improved Comment: At 09:52, patient is in normal sinus rhythm. D/w Dr. Newman we will dc him Course/Dx - Course Course Of Treatment: 79 y/o male w hx afib on eliquis and diltiazem p/w afib w RVR. - HR in 14's, BP stable. Given 10mg IV diltiazem, 1g Mg, 1L IVF. Patient spontaneously cardioverted back to sinus. D/w cardiology Dr. Newman who will start patient on multaq. - can f/u w urology PRN for flank pain - Diagnoses Provider Diagnoses: Atrial fibrillation - Physician Notifications Discussed Care Of Patient With: Octavio Newman - At 09:40, Dr. Octavio Newman is aware of the patient. At 10:06, Dr. Octavio Newman recommends the patient be given Maltac and follow up with Dr. Lo. Time Discussed With Above Provider: 09:40 Discharge ED - Sign-Out/Discharge Documenting (check all that apply): Patient Departure - Discharge - Discharge Plan Condition: Stable Disposition: HOME Patient Education Materials: A-fib (Atrial Fibrillation) (ED) Referrals: Primitivo Zapien MD [Primary Care Provider] - Additional Instructions: You were seen in the emergency department for atrial fibrillation. Your back in a normal rhythm. Please take your new medication prescribed by cardiology, lenore. Please follow-up with Dr. Lo Please follow up with your primary care doctor in next 2-3 days and return to emergency department for chest pain, trouble breathing, worsening or concerning symptoms. It was a pleasure taking care of you today. - Billing Disposition and Condition Condition: STABLE Disposition: Home - Attestation Statements Document Initiated by Valentine: Yes Documenting Scribe: Evelyn Houston Provider For Whom Valentine is Documenting (Include Credential): Mazin Weller MD Scribe Attestation: I, Evelyn Houston, scribed for Mazin Weller MD on 11/16/19 at 1026. Scribe Documentation Reviewed: Yes Provider Attestation: The documentation as recorded by the Evelyn jackson accurately reflects the service I personally performed and the decisions made by , Mazin Weller MD Status of Scribe Document: Viewed
[2019-11-16] MEDS ORDERED: NS 0.9% 1000 ML** 1,000 ML IV ONE (09:31)
[2019-11-16 09:39] LABS: ABS Basophils 0.1 10^3/ul (0-0.2); ABS Eosinophils 0.1 10^3/ul (0-0.6); ABS Lymphocytes 1.7 10^3/ul (1.0-4.8); ABS Monocytes 0.6 10^3/ul (0-0.8); ABS Neutrophils 4.3 10^3/ul (1.5-7.7); Eosinophil % 1.3 %; Hematocrit 41 % (42-52); Hemoglobin 13.8 g/dL (14.0-18.0); Lymphocyte % 25.4 %; Mean Corpuscular HGB Conc 34 g/dL (31-36); Mean Corpuscular Hemoglobin 33 pg (27-31); Mean Corpuscular Volume 96 fL (80-94); Mean Platelet Volume 7.3 fL (7.4-10.4); Platelet Count 237 10^3/uL (150-450); Red Blood Count 4.23 10^6 /uL (4.18-5.48); Red Cell Distribution Width 14 % (10-15); White Blood Count 6.9 10^3/uL (3.5-10.8)
[2019-11-16 09:56] LABS: Albumin 4.3 g/dL (3.2-5.2); Albumin/Globulin Ratio 1.7 (1-3); BUN/Creatinine Ratio 14.1 (8-20); Calcium 9.5 mg/dL (8.6-10.3); EGFR African American 88.2 (>60); EGFR Non-African American 72.9 (>60); Globulin 2.5 g/dL (2-4); Magnesium 1.9 mg/dL (1.9-2.7); Potassium 3.9 mmol/L (3.5-5.0); Total Bilirubin 0.7 mg/dL (0.2-1.0); Total Protein 6.8 g/dL (6.4-8.9)
[2019-11-16] MEDS ORDERED: Diltiazem IV BAG* D5W Premix 125 MG/125 ML BAG IV SCH (10:00)
[2019-11-16 10:51] VITALS: BP 110/74
--- NOTE | 2019-11-16 11:51 | CONS ---
CC: Dr. Lo; Dr. Primitivo Zapien * CARDIOLOGY CONSULTATION: DATE OF CONSULT: 11/16/19 - EMERGENCY DEPT INDICATION FOR CONSULTATION: Atrial flutter. HISTORY OF PRESENT ILLNESS: The patient is a 79-year-old gentleman with a history of coronary artery disease, history of coronary bypass surgery in 2002, history of stenting to his left main artery in April of 2019 with a history of atrial arrhythmias. The patient recently underwent ablative procedure up at [facility] in [place] last month for atrial flutter. The patient came into the hospital on Friday for an episode of atrial flutter which required cardioversion. The patient woke this morning noticing his heart was racing and fluttering and came to the emergency room. On arrival to the emergency room, he was in atrial flutter at a rate of 140 beats per minute. He was given IV diltiazem and ultimately converted to normal sinus rhythm on his own. Now he is back in normal sinus rhythm, the patient denies any chest pain, shortness of breath, or orthopnea or PND. No palpitations, no lightheadedness, dizziness, or syncope. PAST MEDICAL HISTORY: Outpatient medical problems: Sleep apnea, hypertension, coronary artery disease status post coronary bypass surgery, paroxysmal atrial fibrillation/flutter, spinal stenosis, hypercholesterolemia. PAST SURGICAL HISTORY: Prostatectomy in 2002, bypass in 2004, coronary artery bypass in 2004, cholecystectomy in 2005. OUTPATIENT MEDICATIONS: 1. Eliquis 5 mg b.i.d. 2. Brilinta 90 mg b.i.d. 3. Praluent injection every 2 weeks. 4. Potassium 20 mEq twice a day. 5. Diltiazem XR 120 mg a day. 6. Lovaza 1 g a day. 7. Zolpidem 5 mg q.h.s. as needed. ALLERGIES: To LIPITOR, PRAVACHOL, CRESTOR. FAMILY HISTORY: His father of a stroke at 84 and mother of complications of infected gallbladder. SOCIAL HISTORY: He is and lives with his . 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 Denies tobacco or alcohol use. He exercises regularly. REVIEW OF SYSTEMS: Positive for palpitations. Negative for chest in weight. Negative for changes in bowel or bladder habits. Other 12-point review is unremarkable. PHYSICAL EXAM: Height is 5 feet 10 inches, weight is 173 pounds. Temperature 97.4, heart rate is 82, blood pressure 140/106, respiratory rate is 16, oxygen saturation 98% on room air. Sclerae anicteric. Oropharynx is pink without erythema. Carotids are 2+ without bruits. JVD is normal. Thyroid is normal. Cardiac Exam: S1, S2 without any murmurs, rubs, or gallops. PMI is normal. Lungs are clear to auscultation bilaterally. There is no dullness to percussion. Abdomen is soft, nontender, nondistended with normoactive bowel sounds. Extremities show no edema. He has 2+ pulses throughout. The patient is awake, alert, and oriented. He moves all 4 extremities equally. DIAGNOSTIC STUDIES/LAB DATA: CBC within normal limits. Chemistries are pending. EKG: Initial EKG showed atrial flutter with a heart rate of 140. EKG after cardioversion shows normal sinus rhythm with normal axis and intervals. IMPRESSION AND PLAN: This is a 79-year-old gentleman with a history of coronary artery disease, history of atrial arrhythmias, who recently underwent an ablative procedure up at [facility] in [place] last month. The patient had an episode of atrial flutter on Friday, which required cardioversion. The patient had another episode of cardioversion today which spontaneously converted to normal sinus rhythm. For now my recommendation is to start Multaq 400 mg b.i.d. for suppression of his atrial arrhythmias. His other medications will remain the same. The patient will follow up with Dr. Lo. This case was discussed with Dr. Lo. [id number]/[facility] #: [id number] [facility] HEALTH PARTNERSMarsha
== END 2019-11-16 10:49 | disposition home or self-care (01) ==
LOC: ED 09:03
DX: I48.91 Unspecified atrial fibrillation (principal); Z79.01 Long term (current) use of anticoagulants; I10 Essential (primary) hypertension; G47.30 Sleep apnea, unspecified; K21.9 Gastro-esophageal reflux disease without esophagitis; Z79.02 Long term (current) use of antithrombotics/antiplatelets; Z79.899 Other long term (current) drug therapy; Z95.1 Presence of aortocoronary bypass graft; Z88.5 Allergy status to narcotic agent; Z88.8 Allergy status to other drugs, medicaments and biological substances; Z91.018 Allergy to other foods
CPT/HCPCS: 36415; 80053; 83735; 85025; 93005; 96365; 96375; 99282; J3475; J3490

== ENCOUNTER 2019-11-19 08:18 | Emergency (ER) | payer MEDICARE, BC ==
--- OUTSIDE RECORDS SUMMARY | 2019-11-19 08:27 | XMS REPORT | Continuity of Care Document ---
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 Taylor Monae DNP, RN, Onset: 07/08/2016 DENTAL CHAIRSIDE ASSISTANT-BC Encounter for planned postprocedural Juarez Mccarty M.D., [facility], Onset: 2018 wound closure [facility] Social History Type Date Description Comments Sex Unknown Tobacco Use Start: Unknown Never Smoked Cigarettes Smoking Status Reviewed: 11/16/19 Never Smoked Cigarettes ETOH Use Denies alcohol [...] Medications SIG Qnty Indications Ordering Date Provider Multaq 1 by mouth twice a 60tabs Octavio Wood 11/16/2019 400mg Tablets day Aditi Newman Plavix 4 tabs by mouth x 94tabs Leanne Florence, 09/20/2019 75mg Tablets once (loading dose N.P. ) then 1 by mouth every day Eliquis 1 by mouth twice a 90tabs I48.0 Leanne Florence, 05/24/2019 5mg Tablets day N.P. Praluent 1 injection sc 6ml [...] M.D., 03/23/2015 Tetrofosmin, Per Unit Dose FACC, LETHA Up To 40 Millicuries Injection Immunizations CPT Code Status Date Vaccine Lot # 10880 Given 06/10/2016 Influenza Virus Vaccine, Quadrivalent, Split, Preservative Free Vital Signs Date Vital Result Comment 11/16/2019 12:35pm Height 70 inches 5'10" Weight 175.12 lb left radial regular Heart Rate 78 /min BP Systolic Sitting 134 mmHg ule reg cuff BP Diastolic Sitting 72 mmHg ule reg cuff BP Systolic Standing 136 mmHg ule reg cuff BP Diastolic Standing 76 mmHg ule reg cuff BMI (Body Mass Index) 25.1 kg/m2 Ejection Fraction 60-65% Echo 07/12/18 09/17/2019 9:30am Height 70 inches 5'10" Weight 173.00 lb Heart Rate 74 /min BP Systolic 160 mmHg BP Diastolic 90 mmHg O2 % BldC Oximetry 96 % BMI (Body Mass Index) 24.8 kg/m2 Results Description No Information Available Procedures Date Code Description Status 11/16/2019 88558 EKG Tracing & Interpretation Completed 08/25/2019 55910 EKG Tracing & Interpretation Completed 07/26/2019 68440 Polysomnography Sleep Staging 4+ Parameters W/Cpap Completed 07/02/2019 22635 EKG Tracing & Interpretation Completed Medical Devices Description No Information Available Encounters Type Date Location Provider Dx Diagnosis Office Visit 09/17/2019 [facility] Taylor Monae, G47.33 Obstructive sleep 9:45a [facility], RN, [facility] apnea (adult) [facility] (pediatric) F51.04 Psychophysiologic insomnia R06.02 Shortness of breath Office Visit 08/25/2019 11:40a [facility] Singh Priest I25.10 [facility] Braulio Lo. disease of [place] coronary artery w/o ang pctrs E78.00 Pure hypercholesterolemia, unspecified I10 Essential (primary) hypertension I48.0 Paroxysmal atrial fibrillation Office Visit 07/02/2019 8:30a [facility] Leanne S. I25.10 [facility] heart Foster, N.P. disease of [place] coronary artery w/o ang pctrs I10 Essential (primary) hypertension E78.00 Pure hypercholesterolemia, unspecified Z98.61 Coronary angioplasty status I49.5 Sick sinus syndrome I48.0 Paroxysmal atrial fibrillation Office Visit 07/02/2019 [facility] Taylor G47.33 Obstructive sleep 9:30a [facility] Monae, MARISA, apnea (adult) [facility] (pediatric) H91.92 Unspecified hearing loss, left ear Office Visit 05/24/2019 9:30a [facility] Laenne S. I25.10 [facility] heart Foster, N.P. disease of [place] coronary artery w/o ang pctrs I10 Essential (primary) hypertension E78.00 Pure hypercholesterolemia, unspecified I49.5 Sick sinus syndrome I48.0 Paroxysmal atrial fibrillation Assessments Date Code Description Provider 11/16/2019 I10 Essential (primary) hypertension Singh Lo M.D. 11/16/2019 I48.0 Paroxysmal atrial fibrillation Singh Lo M.D. 11/16/2019 R94.31 Abnormal electrocardiogram [ECG] [EKG] Singh Lo M.D. 09/17/2019 G47.33 Obstructive sleep apnea (adult) Taylor Monae DNP, RN, (pediatric) [facility] 09/17/2019 F51.04 Psychophysiologic insomnia Taylor Monae DNP, MARISA, [facility] 09/17/2019 R06.02 Shortness of breath Taylor Monae DNP, RN, [facility] 08/25/2019 I25.10 Atherosclerotic heart disease of Snigh Lo M.D. [place] coronary artery with 08/25/2019 E78.00 Pure hypercholesterolemia, unspecified Singh Lo M.D. 08/25/2019 I10 Essential (primary) hypertension Singh Lo M.D. 08/25/2019 I48.0 Paroxysmal atrial fibrillation Singh Lo M.D. 07/26/2019 G47.33 Obstructive sleep apnea (adult) Nataliya Hutchins MD (pediatric) 07/02/2019 R94.31 Abnormal electrocardiogram [ECG] [EKG] Singh Lo M.D. 07/02/2019 I25.10 Atherosclerotic heart disease of Leanne STanesha Florence, N.P. [place] coronary artery with 07/02/2019 G47.33 Obstructive sleep apnea (adult) Taylor Monae DNP, RN, (pediatric) [facility] 07/02/2019 I10 Essential (primary) hypertension Leanne S. Naman, N.P. 07/02/2019 E78.00 Pure hypercholesterolemia, unspecified Leanne S. Foster, N.P. 07/02/2019 Z98.61 Coronary angioplasty status Leanne S. Foster, N.P. 07/02/2019 H91.92 Unspecified hearing loss, left ear Taylor Monae DNP, RN, [facility] 07/02/2019 I49.5 Sick sinus syndrome Leanne S. Foster, N.P. 07/02/2019 I48.0 Paroxysmal atrial fibrillation Leanne S. Foster, N.P. 05/24/2019 I25.10 Atherosclerotic heart disease of Leanne S. Naman, N.P. [place] coronary artery with 05/24/2019 I10 Essential (primary) hypertension Leanne S. Foster, N.P. 05/24/2019 E78.00 Pure hypercholesterolemia, unspecified Leanne Florence N.P. 05/24/2019 I49.5 Sick sinus syndrome Meir Granado.PTanesha 05/24/2019 I48.0 Paroxysmal atrial fibrillation Leanne Florence N.P. Plan of Treatment Future Appointment(s):12/08/2019 10:00 am - Leanne Florence N.P. at [facility]03/13/2020 9:45 am - Taylor Monae DNP, RN, DENTAL CHAIRSIDE ASSISTANT-BC at [facility]11/16/2019 - Singh Lo M.D.I10 Essential ( primary) [id number] Paroxysmal atrial fibrillationFollow up:please obtain discharge summary, labs , [place] [facility] [place]. ov Leanne within 3 weeks.R94.31 Abnormal electrocardiogram [ECG] [EKG] Functional Status Description No Information Available Mental Status Description No Information Available Referrals Refer to Dr Reason for Referral Status Appt Date Kristin Butler MD pAF symptomatic eval for ablation Sent [address] [place] [address] [phone] Singh Lin MD Pt complains of sudden hearing loss left ear Closed 2-weeks ago On CPAP auto [address] [place] [address] [phone]
--- OUTSIDE RECORDS SUMMARY | 2019-11-19 08:27 | XMS REPORT | Continuity of Care Document ---
:1940 External Reference #:[id number] Author Name Singh Lo M.D. (transmitted by agent of provider Ester Davis) Address [address] [place] [id number] Care Team Providers Name Role Phone Primitivo Zapien MD - Family Medicine Care Team Information Impression Printer [phone] Problems Active Problems Provider Date Pure hypercholesterolemia [...] syndrome Taylor Monae DNP, RN, Onset: 07/08/2016 INVESTOR RELATIONS SPECIALIST-BC Insomnia Taylor Monae DNP, RN, Onset: 07/08/2016 INVESTOR RELATIONS SPECIALIST-BC Encounter for planned postprocedural Juarez Mccarty M.D., [facility], Onset: 2018 wound closure [facility]SC[facility] Social History [...] 1 by mouth twice a 60tabs Octavio DTanesha 11/16/2019 400mg Tablets day Aditi Newman Plavix [...] 1 by mouth twice a 60tabs Leanne EppsTanesha Naman, 07/07/2019 - 400mg day (pt currently N.P. 08/24/2019 Tablets not wanting to take) Medications Administered in Office Medication SIG Qnty Indications Ordering Provider Date Inj, Regadenoson, 0.1 MG Octaviobenjamin Newman M.D. 05/28/2018 Injection Technetium TC 99M [...] CPT Code Status Date Vaccine Lot # [id number] Given 06/10/2016 Influenza Virus Vaccine, Quadrivalent, Split, [...] Available Procedures Date Code Description Status 11/16/2019 88025 EKG Tracing & Interpretation Completed 08/25/2019 57167 EKG Tracing & Interpretation Completed 07/26/2019 12493 Polysomnography Sleep Staging 4+ Parameters W/Cpap Completed 07/02/2019 80839 EKG Tracing & Interpretation Completed Medical Devices Description No Information Available Encounters Type Date Location Provider Dx Diagnosis Office Visit 09/17/2019 [facility] Taylor Monae, G47.33 Obstructive sleep 9:45a [facility] RN, [facility] apnea (adult) [facility] (pediatric) 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 disease of [place] coronary artery w/o ang pctrs E78.00 Pure hypercholesterolemia, unspecified I10 Essential (primary) hypertension I48.0 Paroxysmal atrial fibrillation Office Visit 07/02/2019 8:30a [facility] Leanne S. I25.10 Athnel heart Naman, N.P. disease of [place] coronary artery w/o ang pctrs I10 Essential (primary) hypertension E78.00 Pure hypercholesterolemia, unspecified Z98.61 Coronary angioplasty status I49.5 Sick sinus syndrome I48.0 Paroxysmal atrial fibrillation Office Visit 07/02/2019 [facility] Taylor G47.33 Obstructive sleep 9:30a [facility] Monae, MARISA, apnea (adult) [facility] (pediatric) H91.92 Unspecified hearing loss, left ear Office Visit 05/24/2019 9:30a [facility]25.10 [facility], N.P. disease of [place] coronary artery w/o ang pctrs I10 Essential (primary) hypertension E78.00 Pure hypercholesterolemia, unspecified I49.5 Sick sinus syndrome I48.0 Paroxysmal atrial fibrillation Assessments Date Code Description Provider 11/16/2019 I10 Essential (primary) hypertension Singh Lo M.D. 11/16/2019 I48.0 Paroxysmal atrial fibrillation Singh Lo M.D. 11/16/2019 R94.31 Abnormal electrocardiogram [ECG] [EKG] Singh Lo M.D. 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 08/25/2019 I10 Essential (primary) hypertension Singh Lo M.D. 08/25/2019 I48.0 Paroxysmal atrial fibrillation Singh Lo M.D. 07/26/2019 G47.33 Obstructive sleep apnea (adult) Nataliya Hutchins MD (pediatric) 07/02/2019 R94.31 Abnormal electrocardiogram [ECG] [EKG] Singh Lo M.D. 07/02/2019 I25.10 Atherosclerotic heart disease of Leanne Florence, N.P. [place] coronary artery with 07/02/2019 G47.33 Obstructive sleep apnea (adult) Taylor Monae DNP, RN, (pediatric) [facility] 07/02/2019 I10 Essential (primary) hypertension Leanne S. Naman, N.P. 07/02/2019 E78.00 Pure hypercholesterolemia, unspecified Leanne S. Foster, N.P. 07/02/2019 Z98.61 Coronary angioplasty status Leanne S. Naman, N.P. 07/02/2019 H91.92 Unspecified hearing loss, left ear Taylor Monae DNP, RN, [facility] 07/02/2019 I49.5 Sick sinus syndrome Leanne S. Naman, N.P. 07/02/2019 I48.0 Paroxysmal atrial fibrillation Leanne S. Naman, N.P. 05/24/2019 I25.10 Atherosclerotic heart disease of Leanne S. Foster, N.Shelli [place] coronary artery with 05/24/2019 I10 Essential (primary) hypertension Meir Granado.PTanesha 05/24/2019 E78.00 Pure hypercholesterolemia, unspecified Meir Granado.P. 05/24/2019 I49.5 Sick sinus syndrome Meir Granado.PTanesha 05/24/2019 I48.0 Paroxysmal atrial fibrillation Leanne Florence N.P. Plan of Treatment Future Appointment(s):12/08/2019 10:00 am - Leanne Florence N.P. at [facility]03/13/2020 9:45 am - Taylor Monae DNP, RN, INVESTOR RELATIONS SPECIALIST-BC at [facility]11/16/2019 - Singh Lo M.D.I10 Essential ( primary) [id number] Paroxysmal atrial fibrillationFollow up:please obtain discharge summary, labs , ekg from today's [facility] and friday visit. ov Leanne within 3 weeks.R94.31 Abnormal electrocardiogram [ECG] [EKG] Functional Status Description No Information Available Mental Status Description No Information Available Referrals Refer to Dr Reason for Referral Status Appt Date Kristin Butler MD pAF symptomatic eval for ablation [facility] [address] [place] [address] [phone] Singh Lin MD Pt complains of sudden hearing loss left ear Closed 2-weeks ago On CPAP auto [address] [place] [address] [phone]
[2019-11-19] MEDS ORDERED: NS 0.9% 1000 ML** 1,000 ML IV ONE (08:49)
[2019-11-19] MEDS ORDERED: Diltiazem IV push/loading dose 5 MG/ML 5 ML vial (25 mg) IV PUSH ONE (08:49)
--- NOTE | 2019-11-19 09:03 | ED ---
HPI Cardiac - HPI Summary HPI Summary: 79 year old M presenting to [facility] accompanied by female brick machine operator complains of atrial fibrillation since earlier today 11/19/2019. Patient reports coming to [facility] for similar episodes twice recently. PMHx of atrial fibrillation. 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 He had an ablation done at [facility] on 11/08/2019 and states episodes increased after the procedure. His brick machine operator reported that he had not had an episode for 3 months prior to the ablation. Patient denies chest pain or shortness of breath. He reports being on two blood thinners, Eliquis being one of them. The patient rates the pain 0/10 in severity. Symptoms aggravated by nothing. Symptoms alleviated by nothing. Medications reviewed. Allergies noted. Home Medications Medication Instructions Recorded Confirmed Type Diltiazem CD CAP* [Cardizem CD 120 mg PO BEDTIME 03/22/14 11/19/19 History CAP*] Nitroglycerin TAB 0.4 MG* 0.4 mg SL Q5M PRN 06/18/16 11/19/19 History Zolpidem TAB* [Ambien*] 5 mg PO BEDTIME PRN 10/23/17 11/19/19 History Apixaban* [Eliquis*] 5 mg PO BID 06/25/19 11/19/19 History Hkpdl-5-Wynu Ethyl Esters (NF) 1 gm PO BID 06/25/19 11/19/19 History [Lovaza (NF)] Potassium Chlor TAB* [Klor Con ER 20 meq PO DAILY 06/25/19 11/19/19 History TAB*] Ubidecarenone [Co Q-10] 10 mg PO QAM 06/25/19 11/19/19 History Clopidogrel TAB* [Plavix TAB*] 75 mg PO DAILY 11/14/19 11/19/19 History Multivit-Min/Folic/Vit K/Lycop 1 each PO DAILY 11/14/19 11/19/19 History [Men's Multivitamin Tablet] Alirocumab [Praluent] 75 mg SC Q14D 11/19/19 11/19/19 History Cholecalciferol (Vitamin D3) 2,000 unit PO BID 11/19/19 11/19/19 History [Vitamin D3] Kxtid-3-Frxn Ethyl Esters (NF) 1 cap PO DAILY 11/19/19 11/19/19 History [Lovaza (NF)] - History of Current Complaint Chief Complaint: EDDysrhythmPalp Stated Complaint: AFIB PER PT Time Seen by Provider: 11/19/19 08:49 Hx Obtained From: Patient Onset/Duration: Started Hours Ago Current Severity: Mild Pain Intensity: 0 Pain Scale Used: 0-10 Numeric Aggravating Factor(s): Nothing Alleviating Factor(s): Nothing Associated Signs and Symptoms: Negative: Chest Pain, Shortness of Breath - Allergy/Home Medications Allergies/Adverse Reactions: Allergies Allergy/AdvReac Type Severity Reaction Status Date / Time niacin Allergy Intermediate Flushing Verified 11/19/19 08:24 [From Niaspan Extended-Release] hydrocodone [From Lortab] Allergy Unknown Unknown Verified 11/19/19 08:24 Reaction Details chocolate flavor Allergy Sneezing Verified 11/19/19 08:24 strawberry Allergy Hives Verified 11/19/19 08:24 atorvastatin [From Lipitor] AdvReac Severe Muscle Ache Verified 11/19/19 08:24 pravastatin AdvReac Severe Muscle Ache Verified 11/19/19 08:24 Home Medications: Home Medications Diltiazem CD CAP* [Cardizem CD CAP*] 120 mg PO BEDTIME 03/22/14 [History Confirmed 11/19/19] Nitroglycerin TAB 0.4 MG* 0.4 mg SL Q5M PRN 06/18/16 [History Confirmed 11/19/19 ] Zolpidem TAB* [Ambien*] 5 mg PO BEDTIME PRN 10/23/17 [History Confirmed 11/19/19 ] Apixaban* [Eliquis*] 5 mg PO BID 06/25/19 [History Confirmed 11/19/19] Hnzin-3-Jivk Ethyl Esters (NF) [Lovaza (NF)] 1 gm PO BID 06/25/19 [History Confirmed 11/19/19] Potassium Chlor TAB* [Klor Con ER TAB*] 20 meq PO DAILY 06/25/19 [History Confirmed 11/19/19] Ubidecarenone [Co Q-10] 10 mg PO QAM 06/25/19 [History Confirmed 11/19/19] Clopidogrel TAB* [Plavix TAB*] 75 mg PO DAILY 11/14/19 [History Confirmed ] Multivit-Min/Folic/Vit K/Lycop [Men's Multivitamin Tablet] 1 each PO DAILY 11/13 [History Confirmed 11/19/19] Alirocumab [Praluent] 75 mg SC Q14D 11/19/19 [History Confirmed 11/19/19] Benzonatate CAP* [Tessalon 100 MG CAP*] 100 mg PO TID PRN 11/19/19 [History Confirmed 11/19/19] Cefuroxime 500 MG TAB (NF) [Ceftin 500 MG TAB (NF)] 1 tab PO BID 11/19/19 [ History Confirmed 11/19/19] Cholecalciferol (Vitamin D3) [Vitamin D3] 2,000 unit PO BID 11/19/19 [History Confirmed 11/19/19] Etfyc-9-Lvbu Ethyl Esters (NF) [Lovaza (NF)] 1 cap PO DAILY 11/19/19 [History Confirmed 11/19/19] PMH/Surg Hx/FS Hx/Imm Hx Endocrine/Hematology History: Denies: Hx Diabetes Cardiovascular History: Reports: Hx Angina, Hx Atrial Fibrillation, Hx Coronary Artery Disease, Hx Hypercholesterolemia, Other Cardiovascular Problems/ Disorders - Afib Denies: Hx Congestive Heart Failure, Hx Hypertension, Hx Myocardial Infarction, Hx Pacemaker/ICD, Hx Valvular Heart Disease Respiratory History: Reports: Hx Sleep Apnea Denies: Hx Asthma, Hx Chronic Obstructive Pulmonary Disease (COPD) Comment Only: Other Respiratory Problems/Disorders - CPAP at night GI History: Reports: Hx Gastroesophageal Reflux Disease History: Reports: Other Problems/Disorders - hx frequency & urgency Denies: Hx Chronic Renal Failure, Hx Renal Disease Musculoskeletal History: Reports: Other Musculoskeletal History - spinal stenosis Sensory History: Reports: Hx Cataracts, Hx Contacts or Glasses - reading glasses , Hx Glaucoma - both eyes, Hx Hearing Aid - did not bring from home Denies: Hx Legally Blind, Hx Deafness Opthamlomology History: Reports: Hx Cataracts, Hx Contacts or Glasses - reading glasses, Hx Glaucoma - both eyes Denies: Hx Legally Blind Psychiatric History: Denies: Hx Panic Disorder - Cancer History Cancer Type, Location and Year: prostate cancer Hx Chemotherapy: No Hx Radiation Therapy: No - Surgical History Surgery Procedure, Year, and Place: HEART BYPASS WITH NO STENTING 1992. PROSTATE REMOVAL FROM [place]. GALLBLADDER 1994. VASECTOMY Hx Anesthesia Reactions: No - Immunization History Date of Tetanus Vaccine: utd Date of Influenza Vaccine: fall 2017 Infectious Disease History: No Infectious Disease History: Denies: Traveled Outside the [place] in Last 30 Days - Family History Known Family History: Positive: Hypertension, Other - Positive: Atrial fibrillation - Social History Alcohol Use: None Hx Substance Use: No Substance Use Type: Reports: None Hx Tobacco Use: No Smoking Status (MU): Never Smoked Tobacco Review of Systems Positive: Other - atrial fibrillation. Negative: Chest Pain Negative: Shortness Of Breath All Other Systems Reviewed And Are Negative: Yes Physical Exam - Summary Physical Exam Summary: GENERAL: Patient is a well-developed and nourished male who is lying comfortable in the stretcher. Patient is not in any acute respiratory distress. HEAD AND FACE: Normocephalic and atraumatic. EYES: PERRLA, EOMI x 2, No injected conjunctiva. EARS: Hearing grossly intact. Ear canals and tympanic membranes are WNL. MOUTH: Oropharynx within normal limits. NECK: Supple, trachea is midline, no adenopathy, no JVD. CHEST: Symmetric, no tenderness at palpation. LUNGS: Clear to auscultation bilaterally. No wheezing or crackles. CARDIAC: Tachycardia. CVS: RRR, S1 and S2 present, no murmurs or gallops appreciated. ABDOMEN: Soft, non-tender. No signs of distention. Positive bowel sounds. No rebound, no guarding, and no masses palpated. No abdominal bruit or pulsations. EXTREMITIES: FROM in all major joints, no edema, no cyanosis or clubbing. NEURO: Alert and oriented x 3. No acute neurological deficits. Speech is normal. SKIN: Dry and warm. Triage Information Reviewed: Yes Vital Signs On Initial Exam: Initial Vitals Temp Pulse Resp BP Pulse Ox 97.1 F 135 18 114/85 95 11/19/19 08:22 11/19/19 08:22 11/19/19 08:22 11/19/19 08:22 11/19/19 08:22 Vital Signs Reviewed: Yes Procedures - Sedation Patient Received Moderate/Deep Sedation with Procedure: No Diagnostics - Vital Signs Vital Signs Temp Pulse Resp BP Pulse Ox 11/19/19 08:44 136 31 121/87 94 11/19/19 08:38 138 29 94 11/19/19 08:22 97.1 F 135 18 114/85 95 - Laboratory Result Diagrams: 11/19/19 09:15 11/19/19 09:15 Lab Statement: Any lab studies that have been ordered have been reviewed, and results considered in the medical decision making process. - Radiology CXR Radiology Interpretation Completed By: Radiologist Summary of Radiographic Findings: IMPRESSION: RIGHT BASILAR ATELECTASIS WITH RIGHT PLEURAL EFFUSION. has reviewed this report. - EKG 0824 Cardiac Rate: Tachycardia EKG Rhythm: Atrial Flutter Summary of EKG Findings: An EKG at 0824 reveals atrial flutter and tachycardia at a rate of 130 bpm. has reviewed and interpreted this EKG. 0923 Cardiac Rate: NL EKG Rhythm: Sinus Rhythm Summary of EKG Findings: An EKG at 0923 reveals sinus rhythm at a rate of [address] elevations. has reviewed and interpreted this EKG. Disposition - Course Assessment/Plan: 79 year old M presenting to [facility] accompanied by female brick machine operator complains of atrial fibrillation since earlier today 11/19/2019. Patient reports coming to [facility] for similar episodes twice recently. PMHx of atrial fibrillation. 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 He had an ablation done at [facility] on 11/08/2019 and states episodes increased after the procedure. His brick machine operator reported that he had not had an episode for 3 months prior to the ablation. Patient denies chest pain or shortness of breath. He reports being on two blood thinners, Eliquis being one of them. The patient rates the pain 0/10 in severity. Symptoms aggravated by nothing. Symptoms alleviated by nothing. Medications reviewed. Allergies noted. EKG: Atrial flutter with RVR. In the ED course the patient was placed in a personnel monitor, IV access was obtained, IV fluids started. Cardizem 20 mg IV given. After Cardizem, second EKG: NSR 71 BPM. Past medical records reviewed. Blood test w/o a significant abnormality except for slight anemia with a hemoglobin of 13.7, hematocrit 41, glucose 156, 96 MCV, 32 MCH, 71 MPV, lactic acid is 2.4, troponin 0.03, 1.59 INR, BNP is 120 and total protein 6.2. The patients troponin and he was 0.3 and 0.4. The patient denies any chest pain. I discussed the case with Dr. Gill from cardiology and he recommends for the patient to be discharged home and follow with Dr. Lo. I discussed all the findings and test results with the patient. Patient was instructed to return to the emergency room immediately if any of the symptoms return worsens. Plan of care was discussed with the patient and understands and agrees. All questions were answered at patient satisfaction. There were no further complaints or concerns. Lung exam before discharge: CTA B/L. Good air exchange. No wheezing or crackles heard. CVS: S1 and S2 present. No murmurs appreciated. Patient is alert and oriented x 3. Patient is hemodynamically stable. Patient will be discharged home with follow up in the next 2-3 days. - Diagnoses Provider Diagnoses: Atrial flutter with rapid ventricular response - Physician Notifications Discussed Care Of Patient With: Feliberto Gill - Discharge and follow up with Time Discussed With Above Provider: 10:09 Instructed by Provider To: Other - Discharge - Critical Care Time Critical Care Time: 30-74 min Discharge ED - Sign-Out/Discharge Documenting (check all that apply): Patient Departure - discharge - Discharge Plan Condition: Stable Disposition: HOME Patient Education Materials: A-fib (Atrial Fibrillation) (ED) Referrals: Singh Lo MD [Medical Doctor] - 3 Days Additional Instructions: Please return to emergency department for any new or worsening symptoms. Please follow up with , Cardiology, within 1-3 days. - Billing Disposition and Condition Condition: STABLE Disposition: Home - Attestation Statements Document Initiated by Valentine: Yes Documenting Scribe: Everton Smith Provider For Whom Valentine is Documenting (Include Credential): Dr.Walter Eugene MD Scribe Attestation: Everton Esteban, scribed for Dr.Walter Eugene MD on 11/20/19 at 0721. Scribe Documentation Reviewed: Yes Provider Attestation: The documentation as recorded by the Everton jackson accurately reflects the service I personally performed and the decisions made by me, Dr.Walter Eugene MD Status of Scribe Document: Viewed
[2019-11-19 09:21] LABS: ABS Basophils 0.1 10^3/ul (0-0.2); ABS Eosinophils 0.1 10^3/ul (0-0.6); ABS Lymphocytes 1.4 10^3/ul (1.0-4.8); ABS Monocytes 0.5 10^3/ul (0-0.8); ABS Neutrophils 4.2 10^3/ul (1.5-7.7); Hematocrit 41 % (42-52); Hemoglobin 13.7 g/dL (14.0-18.0); Lymphocyte % 21.9 %; Mean Corpuscular HGB Conc 34 g/dL (31-36); Mean Corpuscular Hemoglobin 32 pg (27-31); Mean Corpuscular Volume 96 fL (80-94); Mean Platelet Volume 7.1 fL (7.4-10.4); Nucleated Red Blood Cells % 0.1; Platelet Count 250 10^3/uL (150-450); Red Blood Count 4.22 10^6 /uL (4.18-5.48); Red Cell Distribution Width 14 % (10-15); White Blood Count 6.4 10^3/uL (3.5-10.8)
[2019-11-19 09:30] LABS: Activated Partial Thrombo Time 37.8 seconds (26.0-38.0); INR 1.59 (0.82-1.09)
[2019-11-19 09:41] LABS: Albumin/Globulin Ratio 1.8 (1-3); BUN/Creatinine Ratio 14.8 (8-20); Calcium 9.3 mg/dL (8.6-10.3); EGFR African American 74.2 (>60); EGFR Non-African American 61.3 (>60); Globulin 2.2 g/dL (2-4); Magnesium 1.9 mg/dL (1.9-2.7); Potassium 4.4 mmol/L (3.5-5.0); Total Bilirubin 0.6 mg/dL (0.2-1.0); Total Protein 6.2 g/dL (6.4-8.9)
[2019-11-19 09:46] LABS: CKMB ng/mL 0.8 ng/mL (0.6-6.3)
[2019-11-19 09:47] LABS: Troponin I 0.03 ng/mL (<0.03)
[2019-11-19 10:18] LABS: Urine Appearance Clear; Urine Bilirubin Negative (Negative); Urine Blood Negative (Negative); Urine Color Yellow; Urine Glucose Negative (Negative); Urine Ketones Negative (Negative); Urine Nitrite Negative (Negative); Urine Protein Negative (Negative); Urine Specific Gravity 1.014 (1.010-1.030); Urine Urobilinogen Negative (Negative)
[2019-11-19 10:24] VITALS: BP 107/57
[2019-11-19 10:29] LABS: TSH (Thyroid Stimulating Horm) 1.83 mcIU/mL (0.34-5.60)
== END 2019-11-19 10:23 | disposition home or self-care (01) ==
LOC: ED 08:18
DX: I48.92 Unspecified atrial flutter (principal); Z79.01 Long term (current) use of anticoagulants; J98.11 Atelectasis; J90 Pleural effusion, not elsewhere classified; Z95.1 Presence of aortocoronary bypass graft; Z88.5 Allergy status to narcotic agent; Z88.8 Allergy status to other drugs, medicaments and biological substances; Z91.018 Allergy to other foods
CPT/HCPCS: 36415; 71045; 80053; 81003; 82553; 83605; 83735; 83880; 84443; 84484; 85025; 85610; 85730; 93005; 96361; 96374; 99283

== ENCOUNTER 2020-11-26 20:16 | Observation (INO) ==
[2020-11-26] MEDS ORDERED: Diltiazem IV push/loading dose 5 MG/ML 5 ML vial (25 mg) ONE (20:37)
[2020-11-26] MEDS ORDERED: Diltiazem IV push/loading dose 5 MG/ML 5 ML vial (25 mg) IV SLOW PU ONE ×2 (20:37→20:58)
[2020-11-26 20:51] LABS: ABS Basophils 0.1 10^3/ul (0-0.2); ABS Eosinophils 0.2 10^3/ul (0-0.6); ABS Lymphocytes 2.1 10^3/ul (1.0-4.8); ABS Monocytes 0.7 10^3/ul (0-0.8); ABS Neutrophils 4.1 10^3/ul (1.5-7.7); Eosinophil % 2.3 %; Hematocrit 44 % (42-52); Hemoglobin 15.1 g/dL (14.0-18.0); Mean Corpuscular HGB Conc 35 g/dL (31-36); Mean Corpuscular Hemoglobin 33 pg (27-31); Mean Corpuscular Volume 95 fL (80-94); Mean Platelet Volume 7.6 fL (7.4-10.4); Platelet Count 222 10^3/uL (150-450); Red Blood Count 4.62 10^6 /uL (4.18-5.48); Red Cell Distribution Width 13 % (10-15); White Blood Count 7.1 10^3/uL (3.5-10.8)
[2020-11-26 21:00] LABS: INR 1.38 (0.82-1.09)
[2020-11-26 21:09] LABS: Albumin 3.9 g/dL (3.2-5.2); Albumin/Globulin Ratio 1.4 (1-3); BUN/Creatinine Ratio 19.6 (8-20); Calcium 9.8 mg/dL (8.6-10.3); EGFR African American 90.1 (>60); EGFR Non-African American 74.5 (>60); Globulin 2.7 g/dL (2-4); Potassium 4.1 mmol/L (3.5-5.0); Total Bilirubin 0.4 mg/dL (0.2-1.0); Total Protein 6.6 g/dL (6.4-8.9)
[2020-11-26 21:11] LABS: Troponin I 0.01 ng/mL (<0.03)
[2020-11-26 21:30] LABS: Urine Appearance Clear; Urine Bilirubin Negative (Negative); Urine Blood 2+ (Negative); Urine Color Straw; Urine Glucose Negative (Negative); Urine Ketones Negative (Negative); Urine Nitrite Negative (Negative); Urine Protein Negative (Negative); Urine Specific Gravity 1.006 (1.010-1.030); Urine Urobilinogen Negative (Negative)
[2020-11-26] MEDS ORDERED: Diltiazem (ADVAN VIAL) 100 MG/100 ML ADDV.BAG IV ONE (22:00)
[2020-11-26] MEDS ORDERED: Ondansetron 4 mg VIAL 2 MG/ML 2 ml VIAL IV PRN (23:10)
[2020-11-26] MEDS ORDERED: Diltiazem (ADVAN VIAL) 100 MG/100 ML ADDV.BAG IV SCH (23:45)
[2020-11-27] MEDS ORDERED: Diltiazem (ADVAN VIAL) 100 MG/100 ML ADDV.BAG IV SCH (02:43)
[2020-11-27 06:38] LABS: ABS Basophils 0.1 10^3/ul (0-0.2); ABS Eosinophils 0.2 10^3/ul (0-0.6); ABS Lymphocytes 2.5 10^3/ul (1.0-4.8); ABS Monocytes 0.9 10^3/ul (0-0.8); ABS Neutrophils 6.5 10^3/ul (1.5-7.7); Eosinophil % 1.5 %; Hematocrit 45 % (42-52); Hemoglobin 15.1 g/dL (14.0-18.0); Lymphocyte % 24.8 %; Mean Corpuscular HGB Conc 34 g/dL (31-36); Mean Corpuscular Hemoglobin 32 pg (27-31); Mean Corpuscular Volume 96 fL (80-94); Mean Platelet Volume 7.6 fL (7.4-10.4); Platelet Count 236 10^3/uL (150-450); Red Blood Count 4.65 10^6 /uL (4.18-5.48); Red Cell Distribution Width 13 % (10-15); White Blood Count 10.1 10^3/uL (3.5-10.8)
[2020-11-27 06:57] LABS: BUN/Creatinine Ratio 17.3 (8-20); Calcium 9.6 mg/dL (8.6-10.3); EGFR Non-African American 73.6 (>60); Potassium 4.8 mmol/L (3.5-5.0)
[2020-11-27] MEDS ORDERED: Potassium Chlor 20 meq TAB.ER PO SCH (09:00)
[2020-11-27] MEDS ORDERED: Cholecalciferol (VIT D3) 1,000 unit TAB PO SCH (09:00)
[2020-11-27 17:05] VITALS: BP 132/71
== END 2020-11-27 17:50 | disposition home or self-care (01) ==
LOC: ED 20:16 → MEDTELE 20:16
PROVIDERS: ADMIT Internal Medicine; ATTEND Internal Medicine

== ENCOUNTER 2022-11-06 23:57 | Observation (INO) ==
[2022-11-07] MEDS ORDERED: Lactated Ringers 1000 ml BAG 1,000 ML IV ONE ×2 (01:51→09:38)
[2022-11-07] MEDS ORDERED: Morphine 4 MG/ML VIAL (1 ml) IV PRN (02:45)
[2022-11-07] MEDS ORDERED: Ondansetron 4 mg VIAL 2 MG/ML 2 ml VIAL IV PRN (02:46)
[2022-11-07] MEDS ORDERED: oxyCODONE/Acetamin 5/325 mg TAB PO ONE (07:07)
[2022-11-07 09:28] LABS: Activated Partial Thrombo Time 26.9 seconds (26.0-38.0); INR 1.2 (0.88-1.18)
[2022-11-07 09:32] LABS: ABS Lymphocytes 1.4 10^3/ul (1.0-4.8); ABS Monocytes 0.9 10^3/ul (0-0.8); ABS Neutrophils 10.5 10^3/ul (1.5-7.7); Eosinophil % 0.1 %; Hematocrit 41 % (42-52); Hemoglobin 13.4 g/dL (14.0-18.0); Lymphocyte % 11.2 %; Mean Corpuscular HGB Conc 33 g/dL (31-36); Mean Corpuscular Hemoglobin 32 pg (27-31); Mean Corpuscular Volume 99 fL (80-94); Mean Platelet Volume 7.8 fL (7.4-10.4); Platelet Count 161 10^3/uL (150-450); Red Blood Count 4.17 10^6 /uL (4.18-5.48); Red Cell Distribution Width 14 % (10-15); White Blood Count 12.8 10^3/uL (3.5-10.8)
[2022-11-07] MEDS ORDERED: Acetaminophen IV 1 GM/100ML 1,000 MG/100 ML BAG IV PRN (09:35)
[2022-11-07] MEDS ORDERED: Polyethylene Glycol 3350 17 GM PACKET PO PRN (09:36)
[2022-11-07] MEDS ORDERED: Morphine 2 MG/ML SYRINGE IV PRN (09:36)
[2022-11-07] MEDS ORDERED: NS 0.9% 1000 ml BAG 1,000 ML IV SCH (09:45)
[2022-11-07 10:05] LABS: ALT 13 U/L (7-52); AST 16 U/L (13-39); Albumin 3.7 g/dL (3.2-5.2); Albumin/Globulin Ratio 1.9 (1-3); Alkaline Phosphatase 47 U/L (35-149); Anion Gap 6 mmol/L (2-11); Blood Urea Nitrogen 21 mg/dL (6-24); CO2 Carbon Dioxide 27 mmol/L (22-32); Calcium 8.8 mg/dL (8.6-10.3); Chloride 104 mmol/L (101-111); Creatinine, Serum 1.48 mg/dL (0.67-1.17); Glucose 154 mg/dL (70-100); Potassium 4.6 mmol/L (3.5-5.0); Sodium 137 mmol/L (135-145); Total Protein 5.7 g/dL (6.4-8.9); eGFR CKD-EPI 46.9 (>60)
[2022-11-07] MEDS ORDERED: cefTRIAXone 2 gm/50 mL D5W 2 GM/50 ML BAG IV ONE (11:35)
[2022-11-07 11:51] LABS: Folate > 20.00 ng/mL (5.90-24.80)
[2022-11-07 11:52] LABS: Vitamin B12 350 pg/mL (180-914)
[2022-11-07] MEDS ORDERED: cefTRIAXone 2 GM ADDV.VIAL 2 GM in NS 0.9% 100 ml BAG 100 ML IV ONE (12:00)
[2022-11-07] MEDS ORDERED: Iohexol 180 (CONTRAST) 10 ML SDV IV ONE (15:52)
[2022-11-07] MEDS ORDERED: Metoclopramide 5 MG/ML VIAL (10 mg) ONE (16:00)
[2022-11-07] MEDS ORDERED: Sodium Citrate/Citric Acid LIQ 15 ML UDC ONE (16:01)
[2022-11-07] MEDS ORDERED: cefTRIAXone 2 GM ADDV.VIAL ONE (16:03)
[2022-11-07] MEDS ORDERED: Midazolam 2 mg/2 ml VIAL 1 mg/ml 2 ml VIAL (2 mg) ONE (16:18)
[2022-11-07] MEDS ORDERED: fentaNYL 100 mcg/2 ml 50 MCG/ML VIAL ONE ×2 (16:18→16:40)
[2022-11-07] MEDS ORDERED: Propofol 10 MG/ML 20 ML BTL ONE (16:39)
[2022-11-07] MEDS ORDERED: Lidocaine 2% PF 5 ML VIAL ONE (16:40)
[2022-11-07] MEDS: Psyllium PAK PO SCH (23:40)
[2022-11-08] MEDS: Psyllium PAK PO SCH (08:05)
[2022-11-08] MEDS ORDERED: Potassium Chlor 20 meq TAB.ER PO SCH (09:00)
[2022-11-08 10:55] VITALS: BP 155/81
== END 2022-11-08 11:20 | disposition home or self-care (01) ==
LOC: EDHOLD 23:57 → ED 23:57 → SUATTDRO 11-07 09:11 → EDHOLD 11-07 13:54 → MEDTELE 11-07 20:10
PROVIDERS: ADMIT Hospitalist; ATTEND Student in an Organized Health Care Education/Training Program